=== PATIENT | female | born 1955 | race Caucasian/White ===

== ENCOUNTER 2023-06-05 08:20 | Day surgery (SDC) | payer OTHER, SELFPAY ==
[2023-06-05 08:48] VITALS: BP 155/71; PULSE 58; RESP 18; TEMP 36.1; O2SAT 98; BMI 37.8
[2023-06-05] MEDS: Lactated Ringers 1,000 ML 15 ML IV (09:01)
--- NOTE | 2023-06-05 09:12 | PCM.HP.BLA ---
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: No Is patient in pain?: No Allergies imipramine Allergy (Mild, Verified 04/24/23 12:48) Rash Medications atorvastatin 80 mg tablet mg PO 04/24/23 [History Confirmed 04/24/23] bupropion HCl (smoking deter) 150 mg tablet,12 hr sustained-release(smoking deterrent) 150 mg PO BID 04/24/23 [History Confirmed 04/24/23] etodolac 300 mg capsule mg PO 04/24/23 [History Confirmed 04/24/23] lamotrigine 200 mg tablet 200 mg PO DAILY 04/24/23 [History Confirmed 04/24/23] levothyroxine 25 mcg tablet (Synthroid) mcg PO 04/24/23 [History Confirmed 04/24/23] Is last menstrual period known: No Post menopausal: Yes Patient : No PFSH Medical History (Updated 04/24/23 @ 15:[address] Khoi Nguyễn MD) Bipolar 1 disorder Carpal tunnel syndrome Degenerative disc disease Depression GERD (gastroesophageal reflux disease) History of endometrial cancer History of hyperlipidemia History of sleep apnea Hypothyroidism Osteoarthritis Psoriasis Surgical History (Updated 04/24/23 @ 12:46 by Liudmila Figueroa) History of cataract extraction History of elbow surgery History of hysterectomy Family History (Updated 04/24/23 @ 12:47 by Liudmila Figueroa) Father Heart diseaseMother Heart disease Hypertension Hyperlipidemia Social History (Updated 04/24/23 @ 12:47 by Liudmila Figueroa) Smoking Status: Former smoker alcohol intake: current substance use type: does not use HPI HPI HPI: Patient is a 67-year-old female here for colonoscopy. She has never had a screening colonoscopy in the past. She denies any abdominal pain or blood in the stool. She has no family history of colon cancer. ROS General General: No weight change, appetite, fatigue, colon cancer, breast cancer or weakness HEENT HEENT: Yes eye surgery; No difficulty swallowing, eye injury, swollen glands or hoarseness Endo Endocrine: Yes thyroid disease; No diabetes mellitus, thyroid cancer, Hair loss, heat intolerance or cold intolerance Musc Musculoskeletal: Yes back problems and arthritis; No rheumatoid arthritis, gout or joint pain Cardio Cardiovascular: No murmur, pacemaker, heart disease, atrial fibrillation, high blood pressure, heart attack, heart stent, palpitations, shortness of breat with exertion or chest pain Psych Psychiatric: Yes depression and anxiety; No hearing voices Resp Respiratory: No shortness of breath, Yes sleep apnea, No cough, No COPD, No asthma, No emphysema and No wheezing Gastro Gastrointestinal: No abdominal pain, No nausea or vomiting, No diarrhea, No constipation, No blood in stool, Yes acid reflux, No hemorrhoids, No ulcers, No gallbladder problem and No black,tarry stools Tao Hematologic: No blood thinners, No blood disorders, No bleeding, No anemia and No blood clots Neuro Neurologic: No weakness Exam Const General: cooperative Orientation: alert and oriented x3 HENMT Head: normal to inspection Neck Neck: normal visual inspection and full ROM Chest Chest palpation & inspection: normal inspection of the chest Resp Effort & Inspection: normal respiratory effort Auscultation: clear to auscultation bilaterally Cardio Rate: regular rate Rhythm: regular rhythm GI Inspection: non-distended Palpation: soft and nontender Skin General: no rashes or lesions noted Neuro General: patient alert and patient oriented x3 Extrem General: full ROM Psych Appearance: grossly normal Mental Status: mental status grossly normal Assessment and Plan Assessment and Plan (1) Screen for colon cancer: Status: Acute Plan: Patient has never had a screening colonoscopy and she was recommended to have one. [facility] I explained endoscopy in detail to the patient. I explained the risks including but not limited to stroke or heart attack with anesthesia, perforation of the GI tract, bleeding, infection. I explained that any of these could necessitate further emergency surgery. The patient understands and all questions were answered sufficiently. The patient wishes to proceed with procedure. Khoi Nguyễn MD Pager: [facility] [address] [place] [address], [address] [place] [address] Office: I have examined the patient and the H&P has been reviewed. There are no clinical changes since date of exam.
[2023-06-05 09:40] VITALS: BP 158/71; BP 89/48; PULSE 63; RESP 16; TEMP 36.6; O2SAT 97
--- NOTE | 2023-06-05 09:41 | OP.COLON_ITS ---
Patient Name: Keya Prater Procedure Date: 06/05/2023 9:18 AM Date of : 1955 Age: 67 Procedure: Colonoscopy Indications: Screening for colorectal malignant neoplasm Providers: Khoi Nguyễn MD Medicines: Monitored Anesthesia Care Patient Profile: This is a 67 year old female. Refer to note in patient chart for documentation of history and physical. Last Colonoscopy: none. The patient's first colonoscopy is today. Complications: No immediate complications. Procedure: Pre-Anesthesia Assessment: - Prior to the procedure, a History and Physical was performed, and patient medications and allergies were reviewed. The patient's tolerance of previous anesthesia was also reviewed. The risks and benefits of the procedure and the sedation options and risks were discussed with the patient. All questions were answered, and informed consent was obtained. Prior Anticoagulants: The patient has taken no anticoagulant or antiplatelet agents. After reviewing the risks and benefits, the patient was deemed in satisfactory condition to undergo the procedure. After I obtained informed consent, the scope was passed under direct vision. Throughout the procedure, the patient's blood pressure, pulse, and oxygen saturations were monitored continuously. The colonoscope was introduced through the anus and advanced to the cecum, identified by appendiceal orifice and ileocecal valve. The colonoscopy was performed without difficulty. The patient tolerated the procedure well. The quality of the bowel preparation was good. The ileocecal valve, appendiceal orifice, and rectum were photographed. Scope In: 9:24:20 AM Scope Withdrawal Time 0 hours 6 minutes 5 seconds Scope Out: 9:35:21 AM Total Procedure Duration Time 0 hours 11 minutes 1 second Findings: The entire examined colon appeared normal on direct and retroflexion views. Impression: - The entire examined colon is normal on direct and retroflexion views. - No specimens collected. Recommendation: - Discharge patient to home. - Resume previous diet. - Continue present medications. - Repeat colonoscopy is not recommended due to current age (66 years or older) for screening purposes. Procedure Code(s): --- Professional --- 99784, Colonoscopy, flexible; diagnostic, including collection of specimen(s) by brushing or washing, when performed (separate procedure) Diagnosis Code(s): --- Professional --- Z12.11, Encounter for screening for malignant neoplasm of colon CPT copyright 2021 [employer]. All rights reserved. The codes documented in this report are preliminary and upon disease management nurse review may be revised to meet current compliance requirements. Khoi Nguyễn MD 06/05/2023 9:41:31 AM This report has been signed electronically. Number of Addenda: 0 Note Initiated On: 06/05/2023 9:18 AM
[2023-06-05 09:45] VITALS: BP 158/71; BP 97/67; PULSE 70; RESP 16; O2SAT 95
[2023-06-05 09:51] VITALS: BP 108/61; BP 158/71; PULSE 58; RESP 16; TEMP 36.3; O2SAT 97
[2023-06-05 09:59] VITALS: BP 158/71
== END 2023-06-05 10:25 | disposition home or self-care (01) ==
LOC: EN 08:26 → AC 08:26
PROVIDERS: Visit Provider Surgery
PROC: 0DJD8ZZ Inspection of Lower Intestinal Tract, Via Natural or Artificial Opening Endoscopic (ICD-10-PCS; CPT 45378; principal; 2023-06-05 09:25)
DX: Z12.11 Encounter for screening for malignant neoplasm of colon (principal); F31.9 Bipolar disorder, unspecified; E78.00 Pure hypercholesterolemia, unspecified; Z87.891 Personal history of nicotine dependence; Z79.899 Other long term (current) drug therapy; E03.9 Hypothyroidism, unspecified; Z79.890 Hormone replacement therapy; K21.9 Gastro-esophageal reflux disease without esophagitis
CPT/HCPCS: G0121; J7120; J2405

== ENCOUNTER 2025-04-20 21:52 | Emergency (ER) | payer BC, SELFPAY ==
[2025-04-20 21:52] VITALS: BP 162/116; PULSE 148; RESP 16; TEMP 36.5; O2SAT 99; BMI 36.4
[2025-04-20 21:54] VITALS: BP 141/101; PULSE 127; RESP 19; TEMP 36.4; O2SAT 98
[2025-04-20] MEDS: 0.9% Normal Saline (500mL Bag) 500 ML 999 ML IV (22:24)
[2025-04-20 22:25] LABS: Hematocrit 35.2 % (37-47); Hemoglobin 11.1 g/dL (12.0-15.0); Immature Granulocytes Count 0.060 X10^3/uL (0.0-0.0); Mean Corp Hgb Conc 31.5 g/dL (32-36); Mean Corpuscular Volume 95.9 fL (81-99); Mean Platelet Vol. 10.1 fl (6.2-12.0); NRBC Flagged by Analyzer 0 % (0-5); Platelet Count 285 K/mm3 (150-450); RBC Distribution Width CV 13.8 % (11.6-14.6); RBC Distribution Width SD 49.2 fl (35.1-43.9); Red Blood Count 3.67 M/mm3 (4.2-5.4); White Blood Count 9.1 K/mm3 (4.4-11.0)
--- OUTSIDE RECORDS SUMMARY | 2025-04-20 22:26 | XMS RPT_ITS | CCD ---
Author Organization [facility] Care Team Providers Care Research Food Technologist Name Role Phone Sonja Winchester Attending Unavailable Dr. Khoi Nguyễn Attending Provider [phone] Dr. 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, [facility] Pr ovider Lizzette Mcneill MD Unavailable LIZZETTE MCNEILL Referring Unavailable [facility] SOHAIL Tejeda Attending Unavailable LIZZETTE MCNEILL Referring Unavailable [facility] LIZZETTE MCNEILL Attending [facility] LIZZETTE MCNEILL Attending Unavailable LIZZETTE MCNEILL Referring Unavailable [facility] mohinder STEPHEN [facility] LIZZETTE Schaffer Admitting Unavailable LIZZETTE MCNEILL Attending Unavailable LIZZETTE MCNEILL Referring Unavailable [facility] mohinder [facility] ETHAN GAXIOLA Referring Unavailable Allergies Allergy Classification Reported Allergen(s) Allergy Type Date of Onset Reaction(s) Facility (2 sources) Imipramine; Translations: [IMIPRAMINE] Drug Allergy 09-25-1994 [facility] Medications Current Medications Medication Drug Class(es) Dates Sig (Normalized) Sig (Original) atorvastatin 80 mg oral tablet (8 sources) HMG-CoA Reductase Inhibitor Start: 10-10-2024 atorvastatin (Lipitor) 80 mg tablet Take 1 tablet (80 mg) by mouth. 10/10/2024 Active Start: 04-24-2023 take 80 mg by mouth at bedtime Atorvastatin Active 80 MG PO AT BEDTIME April 24, 2023 12:00am 12 hr buPROPion hydrochloride 150 mg extended release oral tablet (8 sources) Aminoketone Start: 08-08-2024 take 1 tablet by mouth twice daily buPROPion SR (WELLBUTRIN SR) 150 mg 12 hr tablet Take 150 mg by mouth two times a day. 08/08/2024 Active Start: 04-24-2023 take 150 mg by mouth twice geoffrey ly Bupropion Hcl (Smoking Deter) Active 150 MG PO TWICE A DAY April 24, 2023 12:00am take 1 tablet by daniel th twice daily buPROPion XL (Wellbutrin XL) 150 mg 24 hr tablet Take by mouth twice a day. Active ergocalciferol 1.25 mg oral capsule (2 sources) Provitamin D2 Compound take 1 capsule by mouth every week ergocalciferol 50,000 unit capsule (VITAMIN D2, DRISDOL) Take 50,000 Units by mouth one time a week. Active etodolac 300 mg oral capsule (3 sources) Nonsteroidal Anti-inflammatory Drug Start: 10-11-19 etodolac (LODINE) 300 mg capsule Take 300 mg by mouth. 10/10/2024 Active Start: 04-24-2023 take 300 mg by mouth twice geoffrey ly Etodolac Active 300 MG PO TWICE A DAY April 24, 2023 12:00am lamoTRIgine 200 mg oral tablet (8 sources) Mood Stabilizer, Anti-epileptic Agent Start: 08-08-2024 lamoTRIgine (LAMICTAL) 200 mg tablet Take 200 mg by mouth. 08/08/2024 Active Start: 04-24-2023 take 200 mg by mouth once reed y Lamotrigine Active 200 MG PO DAILY April 24, 2023 12:00am take 1 tablet by daniel th every twenty-four hours lamoTRIgine (LaMICtal XR) 200 mg tablet extended release 24hr 24 hr tablet Take by mouth. Active levothyroxine sodium 0.025 mg oral tablet (1 source) l-Thyroxine Start: 04-24-2023 take 1 tablet by mouth once daily Levothyroxine (Synthroid) 25 mcg tablet Active 25 MCG PO DAILY April 24, 2023 12:00am Completed/Discontinued Medications Medication Drug Class(es) Dates Sig (Normalized) Sig (Original) fludeoxyglucose F-18 injection 12.5 millicurie (1 source) Start: 03-10-2025 End: 03-10-2025 12.5 millicurie, intravenous, Once in imaging, Starting on Thu03/10/25 at 1015, For 1 dose, Administer 60 minutes and up to 3 hours prior to imaging unless otherwise indicated. Problems Active Problems Problem Classification Problem Date Documented Da te Episodic/Chronic Cancer of uterus (16 sources) Malignant neoplasm of endometrium of corpus uteri ; Translations: [Malignant neoplasm of endometrium] Onset: 5 02-21-2025 Chronic Disorders of lipid metabolism (2 sources) Hyperlipidemia, unspecified; Translations: [Hyperlipidemia, unspecified] Onset: 5 Chronic Esophageal disorders (1 source) Gastroesophageal reflux disease; Translations: [Gastro-esophageal reflux disease without esophagitis] 04-24-2023 Chronic Genitourinary symptoms and ill-defined conditions (1 source) Dysuria; Translations: [Dysuria] Onset: 3 Episodic Mood disorders (2 sources) Depressive disorder; Translations: [Depression] 05-28-2023 Chronic Osteoarthritis (1 source) Osteoarthritis; Translations: [Unspecified osteoarthritis, unspecified site] 04-24-2023 Chronic Other connective tissue disease (1 source) Other specified soft tissue disorders; Translations: [Soft tissue mass] Onset: 5 Episodic Other gastrointestinal disorders (3 sources) Abdominal mass; Translations: [Right lower quadrant abdominal swelling, mass and lump] 12-26-2024 Episodic Other gastrointestinal disorders (2 sources) Right lower quadrant abdominal swelling, mass and lump; Translations: [Abdominal mass, right lower quadrant] Onset: 5 Episodic Other inflammatory condition of skin (1 source) Psoriasis; Translations: [Psoriasis, unspecified] 04-24-2023 Chronic Other nervous system disorders (1 source) Carpal tunnel syndrome; Translations: [Carpal tunnel syndrome, unspecified upper limb] 04-24-2023 Chronic Other nervous system disorders (1 source) H/O: respiratory disease; Translations: [Personal history of other diseases of the nervous system and sense organs] 04-24-2023 Episodic Other nutritional; endocrine; and metabolic disorders (1 source) H/O: raised blood lipids; Translations: [Personal history of other endocrine, nutritional and metabolic disease] 04-24-2023 Episodic Other screening for suspected conditions (not mental disorders or infectious disease) (2 sources) Patient encounter status; Translations: [Encounter for screening for malignant neoplasm of colon] 04-24-2023 Episodic Spondylosis; intervertebral disc disorders; other back problems (1 source) Degeneration of intervertebral disc; Translations: [Degeneration of intervertebral disc] 04-24-2023 Chronic Thyroid disorders (1 source) Hypothyroidism; Translations: [Hypothyroidism, unspecified] 05-28-2023 Chronic Past or Other Problems Problem Classification Problem Date Documented Da te Episodic/Chronic Unclassified (5 sources) Onset: 02-21-2025 02-21-2025 Results Test Name Value Interpretation Reference Range Facility Basic metabolic 2000 panelon 04-19-2025 Anion gap [Moles/Vol] 14 mmol/L Normal 10-[address] [facility] Comment on above: Order Comment: Post Op Day of Surgery at 2200 Performed By: #### 2 4321-2 #### BRIAN More ([id number]) [facility] ([facility]) [id number] [place] [address] 84253 Calcium [Mass/Vol] 8.8 mg/dL Normal 8.6-10.6 [facility] Comment on above: Order Comment: Post Op Day of Surgery at 2200 Performed By: #### 2 4321-2 #### BRIAN More ([id number]) [facility] ([facility]) [id number] [place] [address] 79354 Chloride [Moles/Vol] 107 mmol/L Normal 98-107 [facility] Comment on above: Order Comment: Post Op Day of Surgery at 2200 Performed By: #### 2 4321-2 #### BRIAN More ([id number]) [facility] ([facility]) [address] [place] [address] CO2 [Moles/Vol] 23 mmol/L Normal 21-32 [facility] Comment on above: Order Comment: Post Op Day of Surgery at 2200 Performed By: #### 2 4321-2 #### BRIAN More ([id number]) [facility] ([facility]) [address] [place] [address] 61805 Creatinine [Mass/Vol] 0.63 mg/dL Normal 0.50-1.[address] [facility] Comment on above: Order Comment: Post Op Day of Surgery at 2200 Performed By: #### 2 4321-2 #### BRIAN More ([id number]) [facility] ([facility]) [address] [place] [address] 53621 Glomerular filtration rate >90 Normal >60 [facility] Comment on above: Order Comment: Post Op Day of Surgery at 2200 Result Comment: Calc ulations of estimated GFR are performed using the 2020 CKD-EPI Study Refit equation without the race variable for the IDMS-Traceable creatinine methods. https://jasn.asnjournals.org/content//ASN.87004 37392 Performed By: #### 2 4321-2 #### BRIAN More ([id number]) [facility] ([facility]) [address] [place] [address] 02825 Glucose [Mass/Vol] 108 mg/dL High 74-99 [facility] Comment on above: Order Comment: Post Op Day of Surgery at 2200 Performed By: #### 2 4321-2 #### BRIAN More ([id number]) [facility] ([facility]) [address] [place] [address] 70950 Potassium [Moles/Vol] 4.2 mmol/L Normal 3.5-5.[address] [facility] Comment on above: Order Comment: Post Op Day of Surgery at 2200 Performed By: #### 2 4321-2 #### BRIAN More ([id number]) [facility] ([facility]) [address] [place] [address] 76257 Sodium [Moles/Vol] 140 mmol/L Normal 136-145 [facility] Comment on above: Order Comment: Post Op Day of Surgery at 2200 Performed By: #### 2 4321-2 #### BRIAN More ([id number]) [facility] ([facility]) [address] [place] [address] 54272 Urea nitrogen [Mass/Vol] 16 mg/dL Normal 6-23 [facility] Comment on above: Order Comment: Post Op Day of Surgery at 2200 Performed By: #### 2 4321-2 #### BRIAN More ([id number]) [facility] ([facility]) [address] [place] [address] 88425 CBC panel Auto (Bld)on 04-19 Erythrocyte distribution width (RBC) [Ratio] 13.4 % Normal 11.5-14.5 [facility] Comment on above: Order Comment: Post op day of surgery at 2200 Performed By: #### 5 8410-2 #### BRIAN More ([id number]) [facility] ([facility]) [address] [place] [address] 52846 Hematocrit (Bld) [Volume fraction] 32.3 % Low 36.0-46.0 [facility] Comment on above: Order Comment: Post op day of surgery at 2200 Performed By: #### 5 8410-2 #### BRIAN More ([id number]) [facility] ([facility]) [address] [place] [address] 84640 Hemoglobin (Bld) [Mass/Vol] 9.6 g/dL Low 12.0-16.0 [facility] Comment on above: Order Comment: Post op day of surgery at 2200 Performed By: #### 5 8410-2 #### BRIAN More ([id number]) [facility] ([facility]) [address] [place] [address] 09078 MCH (RBC) [Entitic mass] 30.2 pg Normal 26.0-34.0 [facility] Comment on above: Order Comment: Post op day of surgery at 2200 Performed By: #### 5 8410-2 #### BRIAN More ([id number]) [facility] ([facility]) [address] [place] [address] 87167 MCHC (RBC) [Mass/Vol] 29.7 g/dL Low 32.0-36.[address] [facility] Comment on above: Order Comment: Post op day of surgery at 2200 Performed By: #### 5 8410-2 #### BRIAN More ([id number]) [facility] ([facility]) [address] [place] [address] 10216 MCV (RBC) [Entitic vol] 102 fL High 80-100 [facility] Comment on above: Order Comment: Post op day of surgery at 2200 Performed By: #### 5 8410-2 #### BRIAN More ([id number]) [facility] ([facility]) [address] [place] [address] 66535 Nucleated RBC/100 WBC (Bld) [Ratio] 0.0 /100 WBCs Normal 0.0-0.0 [facility] Comment on above: Order Comment: Post op day of surgery at 2200 Performed By: #### 5 8410-2 #### BRIAN More ([id number]) [facility] ([facility]) [address] [place] [address] 19634 Platelets (Bld) [#/Vol] 241 x10*3/uL Normal 150-450 [facility] Comment on above: Order Comment: Post op day of surgery at 2200 Performed By: #### 5 8410-2 #### BRIAN More ([id number]) [facility] ([facility]) [address] [place] [address] 09144 RBC (Bld) [#/Vol] 3.18 x10*6/uL Low 4.00-5.20 [facility] Comment on above: Order Comment: Post op day of surgery at 2200 Performed By: #### 5 8410-2 #### BRIAN More ([id number]) [facility] ([facility]) [address] [place] [address] 44000 WBC (Bld) [#/Vol] 11.5 x10*3/uL High 4.4-11.3 [facility] Comment on above: Order Comment: Post op day of surgery at 2200 Performed By: #### 5 8410-2 #### BRIAN More ([id number]) [facility] ([facility]) [address] [place] [address] 16664 Magnesiumon 04-19-2025 Magnesium [Mass/Vol] 2.20 mg/dL Normal 1.60-2.40 [facility] Comment on above: Performed By: #### 1 9123-9 #### BRIAN More ([id number]) [facility] ([facility]) [address] [place] [address] 45632 Basic metabolic 2000 panelon 04-14-2025 Anion gap [Moles/Vol] 15 mmol/L Normal 10-[address] [facility] Comment on above: Performed By: #### 2 4321-2 #### BRIAN More ([id number]) [facility] ([facility]) [address] [place] [address] 07912 Calcium [Mass/Vol] 9.4 mg/dL Normal 8.6-10.6 [facility] Comment on above: Performed By: #### 2 4321-2 #### BRIAN More ([id number]) [facility] ([facility]) [address] [place] [address] 28215 Chloride [Moles/Vol] 105 mmol/L Normal 98-107 [facility] Comment on above: Performed By: #### 2 4321-2 #### BRIAN More ([id number]) [facility] ([facility]) [address] [place] [address] 17615 CO2 [Moles/Vol] 24 mmol/L Normal 21-32 [facility] Comment on above: Performed By: #### 2 4321-2 #### BRIAN More ([id number]) [facility] ([facility]) [address] [place] [address] Creatinine [Mass/Vol] 0.52 mg/dL Normal 0.50-1.[address] [facility] Comment on above: Performed By: #### 2 4321-2 #### BRIAN More ([id number]) [facility] ([facility]) [address] [place] [address] Glomerular filtration rate >90 Normal >60 [facility] Comment on above: Result Comment: Calc ulations of estimated GFR are performed using the 2020 CKD-EPI Study Refit equation without the race variable for the IDMS-Traceable creatinine methods. https://jasn.asnjournals.org/content/early//ASN.04510 18583 Performed By: #### 2 4321-2 #### BRIAN More ([id number]) [facility] ([facility]) [address] [place] [address] 36628 Glucose [Mass/Vol] 84 mg/dL Normal 74-99 [facility] Comment on above: Performed By: #### 2 4321-2 #### BRIAN More ([id number]) [facility] ([facility]) [address] [place] [address] 75943 Potassium [Moles/Vol] 4.3 mmol/L Normal 3.5-5.[address] [facility] Comment on above: Performed By: #### 2 4321-2 #### BRIAN More ([id number]) [facility] ([facility]) [address] [place] [address] Sodium [Moles/Vol] 140 mmol/L Normal 136-145 [facility] Comment on above: Performed By: #### 2 4321-2 #### BRIAN More (06135) [facility] ([facility]) [address] [place] [address] Urea nitrogen [Mass/Vol] 14 mg/dL Normal 6-23 [facility] Comment on above: Performed By: #### 2 4321-2 #### BRIAN More ([id number]) [facility] ([facility]) [address] [place] [address] 95233 Blood type and Indirect anti body screen panel (Bld)on 04-14-2025 ABO group Nom (Bld) A Normal [facility] Comment on above: Performed By: #### 3 4532-2 #### BRIAN More ([id number]) [facility] ([facility]) [address] [place] [address] 62205 Blood group antibody screen Ql Negative [facility] Comment on above: Performed By: #### 3 4532-2 #### BRIAN More ([id number]) [facility] ([facility]) [address] [place] [address] 03159 D Ag Ql (Bld) Positive [facility] Comment on above: Performed By: #### 3 4532-2 #### BRIAN More ([id number]) [facility] ([facility]) [address] [place] [address] 80085 CBC W Auto Differential pane l (Bld)on 04-14-2025 Basophils (Bld) [#/Vol] 0.03 x10*3/uL Normal 0.00-0.10 [facility] Comment on above: Performed By: #### 5 7021-8 #### BRIAN More ([id number]) [facility] ([facility]) [address] [place] [address] 38938 Basophils/100 WBC (Bld) 0.3 % Normal 0.0-2.0 [facility] Comment on above: Performed By: #### 5 7021-8 #### BRIAN More ([id number]) [facility] ([facility]) [address] [place] [address] 42990 Eosinophils (Bld) [#/Vol] 0.17 x10*3/uL Normal 0.00-0.70 [facility] Comment on above: Performed By: #### 5 7021-8 #### BRIAN Mroe ([id number]) [facility] ([facility]) [address] [place] [address] 27226 Eosinophils/100 WBC (Bld) 1.9 % Normal 0.0-6.0 [facility] Comment on above: Performed By: #### 5 7021-8 #### BRIAN More ([id number]) [facility] ([facility]) [address] [place] [address] 92029 Erythrocyte distribution width (RBC) [Ratio] 13.9 % Normal 11.5-14.5 [facility] Comment on above: Performed By: #### 5 7021-8 #### BRIAN More ([id number]) [facility] ([facility]) [address] [place] [address] 12595 Hematocrit (Bld) [Volume fraction] 37.3 % Normal 36.0-46.0 [facility] Comment on above: Performed By: #### 5 7021-8 #### BRIAN More ([id number]) [facility] ([facility]) [address] [place] [address] 09577 Hemoglobin (Bld) [Mass/Vol] 11.5 g/dL Low 12.0-16.0 [facility] Comment on above: Performed By: #### 5 7021-8 #### BRIAN More ([id number]) [facility] ([facility]) [address] [place] [address] 32128 Immature granulocytes (Bld) [#/Vol] 0.04 x10*3/uL Normal 0.00-0.70 [facility] Comment on above: Performed By: #### 5 7021-8 #### BRIAN More (07406) [facility] ([facility]) [address] [place] [address] 32738 Immature granulocytes/100 WBC (Bld) 0.5 % Normal 0.0-0.9 [facility] Comment on above: Result Comment: Kitty ture Granulocyte Count (IG) includes promyelocytes, myelocytes and metamyelocytes but does not include bands. Percent differential counts (%) should be interpreted in the context of the absolute cell counts (cells/UL). Performed By: #### 5 7021-8 #### BRIAN More (75643) [facility] ([facility]) [address] [place] [address] 12264 Lymphocytes (Bld) [#/Vol] 1.32 x10*3/uL Normal 1.20-4.80 [facility] Comment on above: Performed By: #### 5 7021-8 #### BRIAN More ([id number]) [facility] ([facility]) [address] [place] [address] 28446 Lymphocytes/100 WBC (Bld) 15.0 % Normal 13.0-44.0 [facility] Comment on above: Performed By: #### 5 7021-8 #### BRIAN More ([id number]) [facility] ([facility]) [address] [place] [address] 16635 MCH (RBC) [Entitic mass] 30.2 pg Normal 26.0-34.0 [facility] Comment on above: Performed By: #### 5 7021-8 #### BRIAN More (50251) [facility] ([facility]) [address] [place] [address] 87175 MCHC (RBC) [Mass/Vol] 30.8 g/dL Low 32.0-36.[address] [facility] Comment on above: Performed By: #### 5 7021-8 #### BRIAN More (54029) [facility] ([facility]) [address] [place] [address] 17194 MCV (RBC) [Entitic vol] 98 fL Normal 80-100 [facility] Comment on above: Performed By: #### 5 7021-8 #### BRIAN More ([id number]) [facility] ([facility]) [address] [place] [address] 55771 Monocytes (Bld) [#/Vol] 0.90 x10*3/uL Normal 0.10-1.00 [facility] Comment on above: Performed By: #### 5 7021-8 #### BRIAN More ([id number]) [facility] ([facility]) [address] [place] [address] Monocytes/100 WBC (Bld) 10.3 % Normal 2.0-10.0 [facility] Comment on above: Performed By: #### 5 7021-8 #### BRIAN More ([id number]) [facility] ([facility]) [address] [place] [address] 66585 Neutrophils (Bld) [#/Vol] 6.32 x10*3/uL Normal 1.20-7.70 [facility] Comment on above: Result Comment: Perc ent differential counts (%) should be interpreted in the context of the absolute cell counts (cells/uL). Performed By: #### 5 7021-8 #### BRIAN More ([id number]) [facility] ([facility]) [address] [place] [address] 32024 Neutrophils/100 WBC (Bld) 72.0 % Normal 40.0-80.0 [facility] Comment on above: Performed By: #### 5 7021-8 #### BRIAN More ([id number]) [facility] ([facility]) [address] [place] [address] 71725 Nucleated RBC/100 WBC (Bld) [Ratio] 0.0 /100 WBCs Normal 0.0-0.0 [facility] Comment on above: Performed By: #### 5 7021-8 #### BRIAN More ([id number]) [facility] ([facility]) [address] [place] [address] 53911 Platelets (Bld) [#/Vol] 292 x10*3/uL Normal 150-450 [facility] Comment on above: Performed By: #### 5 7021-8 #### BRIAN More ([id number]) [facility] ([facility]) [address] [place] [address] 19844 RBC (Bld) [#/Vol] 3.81 x10*6/uL Low 4.00-5.20 [facility] Comment on above: Performed By: #### 5 7021-8 #### BRIAN More (49901) [facility] [facility]) [address] [place] [address] WBC (Bld) [#/Vol] 8.8 x10*3/uL Normal 4.4-11.3 [facility] Comment on above: Performed By: #### 5 [id number] #### BRIAN More ([id number]) [facility] ([facility]) [address] [place] [address] ECG 12-LEADon 04-14-2025 ECG 12-LEAD Ventricular Rate 66 Atrial Rate 66 P-R Interval 186 QRS Duration 88 Q-T Interval 400 QTC Calculation(Bazett) 419 P [place] 59 R [place] 77 T [place] 57 QRS Count 11 Q Onset 220 P Onset 127 P Offset 190 T Offset 420 QTC Fredericia 413 Diagnosis Normal sinus rhythm Low voltage QRS Borderline ECG When compared with ECG of 27-NOV-2021 10:05, No significant change was found Confirmed by Angel Riggins ([id number]) on 04/15/2025 9:16:25 PM Normal [facility] Staphylococcus aureus.methic illin resistant isolateon 04-14-2025 MRSA isol Org specific cx Ql (Nose) Test: Staphylococcus aureus/MRSA colonization, Culture Specimen Source: Anterior Nares Specimen Type: Swab Specimen Date: 04/14/20251106 Result Date: 04/15/2025 1521 Result Status: Final result Abnormal: No Resulting Lab: [facility] [address] [place] [address] CULTURE No Staphylococcus aureus isolated Normal [facility] Comment on above: Performed By: #### 5 [id number] #### BRIAN More ([id number]) [facility] ([facility]) [address] [place] [address] TSH WITH REFLEX TO FREE T4 I F ABNORMALon 04-14-2025 TSH Qn 1.65 m[IU]/L Normal 0.44-3.98 [facility] Comment on above: Order Comment: TSH t esting is performed using different testing methodology at [facility] than at other [facility]. Direct result comparisons should only be made within the same method. Performed By: #### T MADISON #### BRIAN More ([id number]) [facility] ([facility]) [address] [place] [address] FDG ONCOLOGYon NM PET CT FDG ONCOLOGY Interpreted By: James More i, and Sharma Rohin STUDY: NM PET CT FDG ONCOLOGY; 03/10/2025 11:44 am INDICATION: Signs/Symptoms:recurren t endometrial cancer. Per EMR, 69-year-old female with history of endometrial cancer status post total abdominal hysterectomy with bilateral salpingo-oophorectomy, and sentinel pelvic lymph node excision. Now presenting with an abdominal wall mass lesion, biopsy-proven as endometrial carcinoma metastases. COMPARISON: None. ACCESSION NUMBER(S): [id number] ORDERING CLINICIAN: LIZZETTE MCNEILL TECHNIQUE: DIVISION OF NUCLEAR MEDICINE POSITRON EMISSION TOMOGRAPHY (PET-CT) The patient received an intravenous dose of 12.5 mCi of Fluorine-18 fluorodeoxyglucose (FDG). The patient was placed in a dark quiet room. Positron emission tomographic (PET) images from midthigh to skull base were then acquired after a one hour delay. Also acquired was a contemporaneous low dose non-contrast CT scan performed for attenuation correction of PET images and anatomic localization. The PET and CT images were digitally fused for display. All images were acquired on a combined PET-CT scanner unit. Some areas of FDG accumulation may be described in standardized uptake value (SUV) units. CODING: Subsequent Treatment Strategy (PS) CALIBRATION: Dose Wrzgfovck-eq-Iaxz Interval (mins): 63 min Mediastinal bloodpool SUV (normal 1.5-2.5): 2.8 Blood glucose: 122 mg/dL FINDINGS: HEAD AND NECK: No evidence of focal hypermetabolic lesion in the brain parenchyma, noting that evaluation is limited because of the expected physiologic diffuse FDG uptake in the brain. No FDG avid cervical lymphadenopathy is present. Thyroid gland unremarkable. CHEST: No concerning pulmonary node No FDG avid mediastinal, hilar or axillary lymphadenopathy. Bilateral breast tissue unremarkable. ABDOMEN AND PELVIS: There is a large FDG avid (SUV 14.3) soft tissue lesion in the intramuscular plane along the right anterolateral abdominal wall in the right lower quadrant. it shows a central photopenic area, likely sales representative education courses of necrosis. Status post FELICIA/BSO with no abnormal focal FDG uptake within the surgical bed that might suggest recurrence. No FDG avid abdominal or pelvic lymphadenopathy. Bilateral adrenal glands are unremarkable. Physiologic radiotracer uptake is present in the liver and spleen with excretion into the bowel loops and the genitourinary tract. Incidental note made of cholelithiasis. MUSCULOSKELETAL/EXTREMI TIES: No concerning FDG avid bone lesion throughout axial or appendicular skeleton to suggest osseous metastasis. FDG avidity about right hip joint, and bilateral shoulder joints. Likely secondary to degenerative joint disease. IMPRESSION: 1. Large FDG avid mass with central necrosis in the intramuscular plane along the right anterolateral abdominal wall, consistent with metastatic endometrial cancer. 2. Status post FELICIA-BSO, no PET evidence of local recurrence in the postsurgical bed. I personally reviewed the images/study and I agree with the findings as stated by Melvin Morrow MD. This study was interpreted at [place], [place]. Signed by: James Bonilla 03/10/2025 2:19 PM Dictation workstation: [id number] [facility] PT Guidance for radiation tr eatment of Unspecified body regionon 03-10-2025 1. Large FDG avid ma ss with central necrosis in the intramuscular plane along the right anterolateral abdominal wall, consistent with metastatic endometrial cancer. 2. Status post FELICIA-BSO, no PET evidence of local recurrence in the postsurgical bed. I personally reviewed the images/study and I agree with the findings as stated by Melvin Morrow MD. This study was interpreted at [place], [place]. Signed by: James Bonilla 03/10/2025 2:19 PM Dictation workstation: [id number] MMODAL Interpreted By: James Bonilla and Sharma Rohin STUDY: NM PET CT FDG ONCOLOGY; 03/10/2025 11:44 am INDICATION: Signs/Symptoms:recurren t endometrial cancer. Per EMR, 69-year-old female with history of endometrial cancer status post total abdominal hysterectomy with bilateral salpingo-oophorectomy, and sentinel pelvic lymph node excision. Now presenting with an abdominal wall mass lesion, biopsy-proven as endometrial carcinoma metastases. COMPARISON: None. ACCESSION NUMBER(S): [id number] ORDERING CLINICIAN: LIZZETTE MCNEILL TECHNIQUE: DIVISION OF NUCLEAR MEDICINE POSITRON EMISSION TOMOGRAPHY (PET-CT) The patient received an intravenous dose of 12.5 mCi of Fluorine-18 fluorodeoxyglucose (FDG). The patient was placed in a dark quiet room. Positron emission tomographic (PET) images from midthigh to skull base were then acquired after a one hour delay. Also acquired was a contemporaneous low dose non-contrast CT scan performed for attenuation correction of PET images and anatomic localization. The PET and CT images were digitally fused for display. All images were acquired on a combined PET-CT scanner unit. Some areas of FDG accumulation may be described in standardized uptake value (SUV) units. CODING: Subsequent Treatment Strategy (PS) CALIBRATION: Dose Apsefepat-zs-Mvan Interval (mins): 63 min Mediastinal bloodpool SUV (normal 1.5-2.5): 2.8 Blood glucose: 122 mg/dL FINDINGS: HEAD AND NECK: No evidence of focal hypermetabolic lesion in the brain parenchyma, noting that evaluation is limited because of the expected physiologic diffuse FDG uptake in the brain. No FDG avid cervical lymphadenopathy is present. Thyroid gland unremarkable. CHEST: No concerning pulmonary node No FDG avid mediastinal, hilar or axillary lymphadenopathy. Bilateral breast tissue unremarkable. ABDOMEN AND PELVIS: There is a large FDG avid (SUV 14.3) soft tissue lesion in the intramuscular plane along the right anterolateral abdominal wall in the right lower quadrant. it shows a central photopenic area, likely sales representative education courses of necrosis. Status post FELICIA/BSO with no abnormal focal FDG uptake within the surgical bed that might suggest recurrence. No FDG avid abdominal or pelvic lymphadenopathy. Bilateral adrenal glands are unremarkable. Physiologic radiotracer uptake is present in the liver and spleen with excretion into the bowel loops and the genitourinary tract. Incidental note made of cholelithiasis. MUSCULOSKELETAL/EXTREMI TIES: No concerning FDG avid bone lesion throughout axial or appendicular skeleton to suggest osseous metastasis. FDG avidity about right hip joint, and bilateral shoulder joints. Likely secondary to degenerative joint disease. MMODAL James Bonilla MD - 03/10/2025 Interpreted By: James Bonilla and Sharma Rohin STUDY: NM PET CT FDG ONCOLOGY; 03/10/2025 11:44 am INDICATION: Signs/Symptoms:recurren t endometrial cancer. Per EMR, 69-year-old female with history of endometrial cancer status post total abdominal hysterectomy with bilateral salpingo-oophorectomy, and sentinel pelvic lymph node excision. Now presenting with an abdominal wall mass lesion, biopsy-proven as endometrial carcinoma metastases. COMPARISON: None. ACCESSION NUMBER(S): [id number] ORDERING CLINICIAN: LIZZETTE MCNEILL TECHNIQUE: DIVISION OF NUCLEAR MEDICINE POSITRON EMISSION TOMOGRAPHY (PET-CT) The patient received an intravenous dose of 12.5 mCi of Fluorine-18 fluorodeoxyglucose (FDG). The patient was placed in a dark quiet room. Positron emission tomographic (PET) images from midthigh to skull base were then acquired after a one hour delay. Also acquired was a contemporaneous low dose non-contrast CT scan performed for attenuation correction of PET images and anatomic localization. The PET and CT images were digitally fused for display. All images were acquired on a combined PET-CT scanner unit. Some areas of FDG accumulation may be described in standardized uptake value (SUV) units. CODING: Subsequent Treatment Strategy (PS) CALIBRATION: Dose Ykerygqbb-go-Ugrl Interval (mins): 63 min Mediastinal bloodpool SUV (normal 1.5-2.5): 2.8 Blood glucose: 122 mg/dL FINDINGS: HEAD AND NECK: No evidence of focal hypermetabolic lesion in the brain parenchyma, noting that evaluation is limited because of the expected physiologic diffuse FDG uptake in the brain. No FDG avid cervical lymphadenopathy is present. Thyroid gland unremarkable. CHEST: No concerning pulmonary node No FDG avid mediastinal, hilar or axillary lymphadenopathy. Bilateral breast tissue unremarkable. ABDOMEN AND PELVIS: There is a large FDG avid (SUV 14.3) soft tissue lesion in the intramuscular plane along the right anterolateral abdominal wall in the right lower quadrant. it shows a central photopenic area, likely sales representative education courses of necrosis. Status post FELICIA/BSO with no abnormal focal FDG uptake within the surgical bed that might suggest recurrence. No FDG avid abdominal or pelvic lymphadenopathy. Bilateral adrenal glands are unremarkable. Physiologic radiotracer uptake is present in the liver and spleen with excretion into the bowel loops and the genitourinary tract. Incidental note made of cholelithiasis. MUSCULOSKELETAL/EXTREMI TIES: No concerning FDG avid bone lesion throughout axial or appendicular skeleton to suggest osseous metastasis. FDG avidity about right hip joint, and bilateral shoulder joints. Likely secondary to degenerative joint disease. IMPRESSION: 1. Large FDG avid mass with central necrosis in the intramuscular plane along the right anterolateral abdominal wall, consistent with metastatic endometrial cancer. 2. Status post FELICIA-BSO, no PET evidence of local recurrence in the postsurgical bed. I personally reviewed the images/study and I agree with the findings as stated by Melvin Morrow MD. This study was interpreted at [place], [place]. Signed by: James Bonilla 03/10/2025 2:19 PM Dictation workstation: [id number] [facility] Work Phone: Radiology Study observation (narrative) [facility] Work Phone: PT Guidance for radiation tr eatment of Unspecified body regionOrdered By: James Bonilla on 03-10-2025 [facility] Work Phone: BRIEF OP NOTon 01-03-2025 BRIEF OP NOT HNO ID: [id number] Author: ELDER MALLORY MD Service: Radiology Author Type: Physician Type: Brief Op Note Filed: 01/03/2025 14:21 Note Text: BRIEF OPERATIVE / PROCEDURE NOTE LOG ID: [id number] SURGERY/PROCEDURE DATE: 01/03/2025 INCISION/PROCEDURE START TIME: 12:27 PM INCISION CLOSE/PROCEDURE END TIME: 12:38 PM SURGEON(S)/PROCEDURALIS T(S) AND MILLING/POLISHING OPERATOR(S): Surgeons and Role: * Enzo Herron MD - Primary * Elder Mallory MD - Fellow No Additional Staff SURGERY/PROCEDURE(S): US guided right abdominal wall mass biopsy ANESTHESIA: Procedural Sedation FINDINGS: Technically successful US guided right abdominal wall mass biopsy ESTIMATED BLOOD LOSS: 0 ml SPECIMENS: 4 core specimens placed in formalin COMPLICATIONS: None PRE-OP/PRE-PROCEDURE DIAGNOSIS: Indeterminate soft tissue mass, history of endometrioid endometrial cancer POST-OP/POST-PROCEDURE DIAGNOSIS: Same as Preop SIGNATURE: Elder Mallory MD PATIENT NAME: Keya Harris DATE: January 03, 2025 TIME: 2:20 PM Normal [facility] HISTORY PHYSICALon 05-27-202 5 HISTORY PHYSICAL HNO ID: [id number] Author: ELDER MALLORY MD Service: Radiology Author Type: Physician Type: H&P Filed: 01/03/2025 10:12 Note Text: Attestation signed by Enzo Herron MD at 01/03/2025 1:00 PM [facility] RADIOLOGY PROCEDURAL SEDATION HISTORY AND PHYSICAL EXAM SERVICE DATE: 01/03/2025 SERVICE TIME: 10:11 AM Subjective HPI: This is a 69 year old female who presents with a history of endometrioid endometrial cancer and a right abdominal wall mass, here for biopsy. PROCEDURE SCHEDULED: Procedure(s) with comments: BIOPSY MUSCLE, PERCUTANEOUS NEEDLE (Right) - Right abdominal mass FBUS w/ CT back up RADIOLOGY ORDER PLACED: Radiology (1440h ago, onward) Start Ordered 12/28/24 0000 IMAGING GUIDED BIOPSY SOFT TISSUE MASS/MUSCLE Routine Comments: Right abdominal mass 12/28/24 1123 PAST ANESTHESIA HISTORY: No history of adverse event No past medical history on file. No past surgical history on file. Prior to Admission medications as of 01/03/25 1004 Medication Sig Last Dose Taking atorvastatin (LIPITOR) 80 mg tablet Take 80 mg by mouth. 01/02/2025 Yes buPROPion SR (WELLBUTRIN SR) 150 mg 12 hr tablet Take 150 mg by mouth two times a day. 01/03/2025 Morning Yes etodolac (LODINE) 300 mg capsule Take 300 mg by mouth. 01/03/2025 Morning Yes lamoTRIgine (LAMICTAL) 200 mg tablet Take 200 mg by mouth. 01/02/2025 Yes ergocalciferol 50,000 unit capsule (VITAMIN D2, DRISDOL) Take 50,000 Units by mouth one time a week. 01/02/2025 Yes ALLERGIES Not on File Objective PHYSICAL EXAM: The remainder of the physical exam is noncontributory. AIRWAY: Mouth opening greater than 3 fingerbreadths: Yes Neck Full Range of Motion: Yes LUNGS: Lungs clear to auscultation, Good diaphragmatic excursion CARDIAC: Normal S1 and S2; no rubs, murmurs, or gallops Assessment/Plan ASA Class: ASA Class: Patient with mild systemic disease Provisional Diagnosis/Treatment Plan: Imaging guided right abdominal wall mass biopsy Sedation Goal: Moderate SIGNATURE: Elder Mallory MD PATIENT NAME: Keya Harris DATE: January 03, 2025 TIME: 10:11 AM Normal [facility] MISMATCH REPAIR PROTEINS BY IHCon 01-03-2025 AP BIOMARKER DISCLAIMER Normal [facility] Comment on above: Order Comment: Cookie augustin Type: TISSUE SPECIMEN Ordering Facility: [facility] Address: [address] [place] [address] Result Comment: Feroz gallego Developed Test (LDT) Disclaimer: Performance characteristics of immunohistochemical, immunofluorescent, and chromogenic in-situ hybridization tests have been determined by the performing laboratory within [facility] ([facility], [facility], [facility], [facility], [facility], or [facility]) in a manner consistent with CLIA requirements. One or more of these tests may not have been cleared or approved by the FDA. [facility] is regulated under CLIA as qualified to perform high-complexity testing. These tests are used for clinical purposes. These should not be regarded as investigational or for research. Positive and negative controls stain appropriately. Performed By: #### L [id number] #### [facility] CLIA [id number] [address] [place], [place] [address] [address] [place] AP BLOCK ID A1 Normal [facility] Comment on above: Order Comment: Speci charli Type: TISSUE SPECIMEN Ordering Facility: [facility] Address: [address] [place] [address] Performed By: #### L [id number] #### [facility] CLIA [id number] [address] [place] [address] OF [place] BIOMARKER INTERPRETATION COMMENT AND REFERENCE RANGE Normal [facility] Comment on above: Order Comment: Speci men Type: TISSUE SPECIMEN Ordering Facility: [facility] Address: [address] [place] [address] Result Comment: Immu nohistochemical stains for mismatch repair proteins were performed and show loss of expression of MLH1 and PMS2 in carcinoma nuclei with retained expression of MSH2 and MSH6. Controls were appropriately positive for each immunohistochemical stain. Loss of protein expression for any of the mismatch repair genes helps to identify the causative gene for the MSI-H phenotype and makes further mutation testing more efficient if indicated following genetic counseling. Immunohistochemical results are not definitive evidence of germline versus a tumor-acquired alteration with many tumors previously considered to be highly suggestive of Wagner syndrome based on molecular and/or immunohistochemical analyses, arise due to tumor-acquired mutations rather than germline mutations. In a phase 2 study of patients with metastatic carcinoma, Chinyere et al ([facility] 2015;372:0659-78) reported that clinical benefit of pembrolizumab, an anti-programmed 1 (PD-1) immune checkpoint inhibitor, was predicted by the tumor's mismatch repair status; mismatch repair deficient (dMMR) tumors are more responsive to PD-1 blockade than mismatch repair proficient tumors. Pembrolizumab is FDA-approved for the treatment of adult and pediatric patients with unresectable or metastatic solid tumors that display microsatellite instability-high (MSI-H) by PCR assay or dMMR by immunohistochemistry (IHC). The FDA does not distinguish between PCR and IHC-based assays, as these are considered equivalent and complimentary tests. As clinically indicated, and in the appropriate setting of genetic counseling with informed patient consent, further genetic testing may be helpful. For more information or questions about this result, please call the [facility] for [facility] [employer] [facility] at [phone]. Performed By: #### L [id number] #### [facility] CLIA [id number] [address] [place] [address] OF [place] BIOMARKER METHOD Immunohistochemistry was performed on formalin-fixed paraffin-embedded tissue using the FDA-approved MMR IHC Panel with the following clones: MLH1 (clone M1 mouse monoclonal); PMS2 (A16-4 mouse monoclonal); MSH2 ([id number] mouse monoclonal); MSH6 (SP93 rabbit monoclonal). The OptiView DAB IHC Detection Kit is used with MLH1, MSH2, and MSH6, and the OptiView DAB IHC Detection Kit with OptiView Amplification Kit is used for PMS2 detection. [[employer]] Normal [facility] Comment on above: Order Comment: Speci men Type: TISSUE SPECIMEN Ordering Facility: [facility] Address: [address] [place] [address] Performed By: #### L [id number] #### [facility] CLIA [id number] [address] [place] [address] CASE NUMBER MMR [id number] Normal [facility] Comment on above: Order Comment: Speci men Type: TISSUE SPECIMEN Ordering Facility: [facility] Address: [address] [place] [address] Performed By: #### L [id number] #### [facility] CLIA [id number] [address] [place] [address] OF [facility]FORM[facility] Normal [facility] Comment on above: Order Comment: Speci men Type: TISSUE SPECIMEN Ordering Facility: [facility] Address: [address] [place] [address] Result Comment: Diag nostic interpretation performed at: [facility], [address] [place] [address] CLIA# [id number] Fish Pitcher: Jigar Asencio MD Electronically signed out by: Bindu Abrams MD Performed By: #### L [id number] #### [facility] CLIA [id number] [address] [place] [address] STATES OF [facility] Result Comment: Diag nostic interpretation performed at: [facility], [address] [place], [place] [address] CLIA# [id number] Fish Pitcher: Jigar Asencio MD Performed By: #### 6 6121-5 #### [facility] CLIA [id number] [address] [place] [address] [place] FIXATIVE Other Normal [facility] Comment on above: Order Comment: Speci men Type: TISSUE SPECIMEN Ordering Facility: [facility] Address: [address] [place] [address] Result Comment: Form david after decalcification in EDTA Performed By: #### L [id number] #### [facility] CLIA [id number] [address] [place] [address] [place] MLH1 IMMUNOHISTOCHEMICAL RESULTS Loss of Nuclear Expression Abnormal [facility] Comment on above: Order Comment: Speci men Type: TISSUE SPECIMEN Ordering Facility: [facility] Address: [address] [place] [address] Performed By: #### L [id number] #### [facility] CLIA [id number] [address] [place], [place] [address] [place] MLH1 PROMOTER METHYLATION ASSAY Yes, Reported Separately Normal [facility] Comment on above: Order Comment: Speci men Type: TISSUE SPECIMEN Ordering Facility: [facility] Address: [address] [place] [address] Performed By: #### L [id number] #### [facility] CLIA [id number] [address] [place], [place] [address] [place] MMR INTERPRETATION Deficient Mismatch Repair (dMMR) Abnormal [facility] Comment on above: Order Comment: Speci men Type: TISSUE SPECIMEN Ordering Facility: [facility] Address: [address] [place], [place] [address] Performed By: #### L [id number] #### [facility] CLIA [id number] [address] [place], [place] [address] [place] MSH2 IMMUNOHISTOCHEMICAL RESULTS Normal/Intact Nuclear Expression Normal [facility] Comment on above: Order Comment: Speci men Type: TISSUE SPECIMEN Ordering Facility: [facility] Address: [address] [place] [address] Performed By: #### L [id number] #### [facility] CLIA [id number] [address] [place] [address] [place] MSH6 IMMUNOHISTOCHEMICAL RESULTS Normal/Intact Nuclear Expression Normal [facility] Comment on above: Order Comment: Speci men Type: TISSUE SPECIMEN Ordering Facility: [facility] Address: [address] [place] [address] Performed By: #### L [id number] #### [facility] CLIA [id number] [address] [place] [address] [place] PMS2 IMMUNOHISTOCHEMICAL RESULTS Loss of Nuclear Expression Abnormal [facility] Comment on above: Order Comment: Speci men Type: TISSUE SPECIMEN Ordering Facility: [facility] Address: [address] [place] [address] Performed By: #### L [id number] #### [facility] CLIA [id number] [address] [place] [address] [place] TUMOR TYPE MMR Metastatic Uterine Endometrial Adenocarcinoma Normal [facility] Comment on above: Order Comment: Speci men Type: TISSUE SPECIMEN Ordering Facility: [facility] Address: [address] [place] [address] Performed By: #### L [id number] #### [facility] CLIA [id number] [address] [place] [address] [place] MLH1 PROMOTER HYPERMETHYLATI ONon 01-03-2025 MLH1 PROMOTER HYPERMETHYLATION Normal [facility] Comment on above: Order Comment: Speci men Type: TISSUE SPECIMEN Ordering Facility: [facility] Address: [address] [place] [address] Result Comment: MLH1 Promoter Hypermethylation Laboratory Accession Number: [id number] Case #: [id number] Block #: A1 % Tumor: 80 MLH1 Promoter Hypermethylation: Present Tissue Analyzed: Bone and soft tissue Reference Range: Methylation Absent means that MLH1 promoter region methylation is observed to be less than or equal to 9%. Methylation Present means that MLH1 promoter region methylation is observed to be greater than or equal to 10%. Interpretation: Presence of MLH1 hypermethylation suggests a sporadic, rather than hereditary, etiology of colorectal and endometrial tumors that have high microsatellite instability (MSI-H) and/or loss of MLH1 protein expression. Patients with this tumor phenotype have a low likelihood of a germline mutation in a DNA mismatch repair gene. However, a small percentage of Wagner syndrome patients may also have MLH1 promoter hypermethylation, and as such, the presence of hypermethylation of the MLH1 promoter cannot definitively rule out Wagner syndrome. Wagner syndrome is a hereditary cancer predisposition caused by germline mutations in one of the DNA mismatch repair genes. High- frequency microsatellite instability (MSI-H) occurs in most colorectal and endometrial adenocarcinomas arising from Wagner syndrome. However, most colorectal and endometrial cancers with MSI-H and loss of MLH1 protein expression can be attributed to somatic promoter hypermethylation of the MLH1 gene and subsequent suppression of MLH1 protein production rather than Wagner syndrome. Testing for methylation of the MLH1 promoter in tumor tissue helps differentiate sporadic from hereditary tumors and guide further evaluation. Methodology: Formalin-fixed, paraffin-embedded tumor tissue was microdissected to enrich for tumor cells. Genomic DNA was purified and treated with sodium bisulfite to convert unmethylated cytosine residues to uracil. PCR amplification of a targeted region of the MLH1 promoter was performed and methylation of four CpG sites in the region encompassing -209bp to -181bp from the licensed optical dispenser start site was analyzed by pyrosequencing of the amplicons (Digital Loyalty System Q48 Autoprep Instrument). References: 1) Janel , et al. Utility of MLH1 methylation analysis in the clinical evaluation of Wagner Syndrome in women with endometrial cancer. Curr Pharm Carlos. 2014;20(11):1655-63. 2) Giancarlo G, et al. Methylation of CpG in a small region of the hMLH1 promoter invariably correlates with the absence of gene expression. Cancer Res. 199 December 08;59(9):2029-33. 3) Waldemar M, et al. MLH1 promoter hypermethylation in the analytical algorithm of Wagner syndrome: a cost-effectiveness study. Eur J Hum Elizabeth. 2012 Feb;20(7):762-8. 4) Jarod HERNANDEZ, et al. Incidence and functional consequences of hMLH1 promoter hypermethylation in colorectal carcinoma. Proc Natl Acad Sci [place] A. 1998 Jan 16;95(12):7270-5. 5) Jett Cronin, et al. Tumour MLH1 promoter region methylation testing is an effective prescreen for Wagner Syndrome (HNPCC). J Med Elizabeth. 2014 Jul;51(12):789-96. 6) Mack More et al. Methylation analysis of MLH1 improves the selection of patients for genetic testing in Wagner syndrome. J Molec Diagn. 2010 Feb;12(4)498-504. Disclaimer: This test was developed and its performance characteristics determined by [facility]'s Pathology and Laboratory Medicine Department. It has not been cleared or approved by the FDA. [facility]'s Pathology and Laboratory Medicine Department is regulated under CLIA as certified to perform high-complexity testing. This test is used for clinical purposes. It should not be regarded as investigational or for research. Test performed at [facility], [address] [place] [address]. [place] Number: [id number] Interpretation performed by Radha Reeves MD, PhD Performed By: #### P OLE #### [facility] CLIA [id number] [address] [place], [place] [address] [address] [place] NURSING PROGon 01-03-2025 NURSING PROG HNO ID: [id number] Author: SARA OCHOA RN Service: ? Author Type: Registered Nurse Type: Nursing Progress Note Filed: 01/04/2025 08:18 Note Text: Completed post procedure phone call. Keya is feeling well and has returned to her baseline diet and activity. Keya denies questions or concerns related to her biopsy appointment on 01/03/25 and had no surgical site concerns. Normal [facility] NURSING PROG HNO ID: [id number] Author: YOLY BERNSTEIN, ZAHRA Service: Radiology Author Type: Registered Nurse Type: Nursing Progress Note Filed: 01/03/2025 12:10 Note Text: .AMBULATORY PATIENT EDUCATION NOTE TOPIC: procedure: image guided biopsy READINESS TO LEARN COGNITIVE ABILITY: Alert and oriented MOTIVATION TO LEARN: Interested FAMILY SUPPORT: Unable to assess - Family not present INSTRUCTION PROVIDED TO: Patient PATIENT LEARNS BEST BY: Verbal Instruction FACTORS AFFECTING LEARNING: Unable to assess PHYSICAL LIMITATIONS AFFECTING LEARNING: None LEARNING RESPONSE DIAGNOSIS: image guided biopsy METHOD OF INSTRUCTION: Verbal instruction PATIENT / FAMILY RESPONSE: Verbalizes understanding of: PAIN MANAGEMENT-Effective strategies to manage pain in addition to pain medication PRE-PROCEDURE INSTRUCTIONS-Correct action to take to follow pre-procedure instructions FOLLOW-UP PLAN: Complete - No need for follow-up SUPPLEMENTAL MATERIAL: None REFERRAL (RECOMMENDATION): None Electronically Signed By: Yoly Bernstein RN In Department: HOSP MAIN [id number] Time spent on patient education: 05 minutes. Normal [facility] POLE PYROSEQUENCINGon 2024 POLE PYROSEQUENCING RESULT Normal [facility] Comment on above: Order Comment: Speci men Type: TISSUE SPECIMEN Ordering Facility: [facility] Address: [facility] [place] [address] Result Comment: POLE Pyrosequencing Laboratory Accession Number: [id number] Case #: [id number] Part ID: N/A Sample Type: FFPET % Tumor: 90 RESULT: Not Detected INTERPRETATION: A hotspot POLE mutation was not detected in this specimen. Please see methods, evaluated pathogenic mutations and test limitations below. POLE encodes for the DNA polymerase episolon catalytic subunit, an enzyme with a crucial role in DNA replication and repair. Pathogenic missense somatic mutations in the POLE exonuclease domain (codons 268-471) lead to genomic instability and ultra-high tumor mutational burden. Pathogenic POLE mutations leading to ultra-mutated phenotype are most frequently observed in colorectal and endometrial cancer, and POLE mutations define a molecular subtype of endometrial carcinoma, POLE-mutated endometrial cancer, which confers a more favorable prognosis. Patients whose tumors contain these mutations may be candidates for treatment with anti-PD-1 antibodies, such as nivolumab, pembrolizumab and dostarlimab. The clinically significant mutations detected by this assay are associated with POLE enzyme loss of function and hypermutator phenotype. METHODS: Formalin-fixed, paraffin-embedded tissue (FFPE) is microdissected to enrich for tumor cells, with a goal of enriching to greater than 40 percent tumor purity. Genomic DNA is extracted and PCR amplification of five targeted regions from exons 9-14 in the POLE gene is then performed. Sixteen missense mutations located in the exonuclease domain (codons 286 to 459) are analyzed by pyrosequencing of the amplicons using the Qiagen Netheos48 instrument (Qiagen, Christopher, please see Evaluated POLE Hotspots below). A percent variant signal for each variant is calculated by comparison to reference peaks in the generated sequence. Pyrograms are manually reviewed to confirm a call. Variant signal less than 10 percent is reported a negative result; signals 10-30 percent are repeated for confirmation, and if confirmed, are reported as a positive result; signals greater than 30 percent are considered positive. Evaluated POLE ([id number]) Hotspots Exon 9: P286R (c.857C>G) P286L (c.857C>T) M295R (c.884T>G) S297F (c.890C>T) Exon 11: F367S (c.1100T>C) F367C (c.1100T>G) D368Y (c.1102G>T) D368N (c.1102G>A) Exon 13: V411L (c.1231G>C and c.1231G>T) L424I (c.1270C>A) P436R (c.1307C>G) M444K (c.1331T>A) Exon 14: A456P (c.1366G>C) S459F (c.1376C>T) S459Y (c.1376C>A) LIMITATIONS: This test is designed to detect only the sixteen variants described above in the POLE gene. Other variants in POLE will not be identified by this test. Uncommon variants or single nucleotide polymorphisms may affect binding of PCR and sequencing primers and may rarely result in false negative or false positive. The lower limit of detection (LOD) of this assay is approximately 20 percent variant allele fraction for all analyzed variants at 85 percent sensitivity; the assay has 95 percent sensitivity for detecting variants at or above 35 percent variant allele fraction. A minimum of 40 percent tumor purity is recommended for this assay; the assay has decreased sensitivity when tumor purity is below this and may result in false negative or indeterminate results. A negative result does not preclude the possibility of an alternative hotspot variant. Tumor heterogeneity, tumor burden, specimen degradation or other limitations of the technology may affect the sensitivity and LOD. Interfering substances, specifically formalin, decalcification agents, fixation agents containing heavy metals or preservation of buffy coats using Javier's Balanced Salt Solution (HBSS) can potentially affect assay performance. REFERENCES: 1) Henrique Serna et al. A panoply of errors: polymerase proofreading domain mutations in cancer. Maeve Rev Cancer. 2016 Feb;16(2):71-81. 2) Tonio K et al. Molecular profiling and sequential somatic mutation shift in hypermutator tumours harbouring POLE mutations. Sci Rep. 2018 Jan 7;8(1):8700. 3) Yemi Rivas, et al. Somatic POLE exonuclease domain mutations are early events in sporadic endometrial and colorectal carcinogenesis, determining oil truck driver mutational landscape, clonal neoantigen burden and immune response. J Pathol. 2018 Feb;245(3):283-296. 4) Noah Davis, et al. Immune profiling of microsatellite instability-high and polymerase epsilon (POLE)-mutated metastatic colorectal tumors identifies predictors of response to anti-PD-1 therapy. J Gastrointest Oncol. 2018 Jan;9(3):404-415. 5) Gin TOUSSAINT, et al. POLE Mutation Spectra Are Shaped by the Mutant Allele Identity, Its Abundance, and Mismatch Repair Status. Mol Cell. 202;78(6). 6) Billie Paez et al. Interpretation of somatic POLE mutations in endometrial carcinoma. J Pathol. 202;250(3):323-335. 7) Elvira BRYANT et al. POLE/POLD1 mutation in non-exonuclease domain matter (more content not included)... Performed By: #### P OLE #### [facility] CLIA [id number] [address] [place] [address] [place] Pathology biopsy report King (Tiss)on 01-03-2025 AP DISCLAIMER Normal [facility] Comment on above: Order Comment: Speci men Type: TISSUE SPECIMEN Ordering Facility: [facility] Address: [address] [place] [address] Result Comment: Feroz Valladares Test (LDT) Disclaimer: Performance characteristics of immunohistochemical, immunofluorescent, and chromogenic in-situ hybridization tests have been determined by the performing laboratory within [facility]'s [facility] Pathology and Laboratory Medicine Department ([facility], [facility], [facility], [facility], [facility], or [facility]) in a manner consistent with CLIA requirements. One or more of these tests may not have been cleared or approved by the FDA. [facility] is regulated under CLIA as qualified to perform high-complexity testing. These tests are used for clinical purposes. These should not be regarded as investigational or for research. Positive and negative controls stain appropriately. Performed By: #### 6 6121-5 #### [facility] CLIA [id number] [address] [place] [address] [place] CASE REPORT Normal [facility] Comment on above: Order Comment: Speci men Type: TISSUE SPECIMEN Ordering Facility: [facility] Address: [address] [place] [address] Result Comment: Surg ical Pathology Report Case: [id number] Authorizing Provider: Enzo Herron MD Collected: 01/03/2025 12:30 PM Ordering Location: [place] [address] Received: 01/03/2025 03:36 PM Pathologist: Bindu Abrams MD Specimen: Bone and Soft Tissue, [email or web address] Performed By: #### 6 6121-5 #### [facility] CLIA [id number] [address] [place] [address] [place] CLINICAL HISTORY Endometrioid endometrial adenocarcinoma - right abdominal wall soft tissue mass Normal [facility] Comment on above: Order Comment: Speci men Type: TISSUE SPECIMEN Ordering Facility: [facility] Address: [address] [place] [address] Performed By: #### 6 6121-5 #### [facility] CLIA [id number] [address] [place] [address] [place] DIAGNOSIS COMMENT Normal [facility] Comment on above: Order Comment: Enricoi charli Type: TISSUE SPECIMEN Ordering Facility: [facility] Address: [address] [place] [address] Result Comment: H&E sections show a glandular malignancy with many solid areas of growth. 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 IMMUNOHISTOCHEMISTRY STAINS Block: A1 ANTIBODY/PROBE: RESULT/COMMENT, in tumor cells PAX8 Positive, strong diffuse WT1 Negative P53 Patchy positive (a non-aberrant /wild-type pattern) P16 Negative ER Focal weak positive Immunohistochemistry for mismatch repair (MMR) proteins show loss of MLH1 and PMS2, with intact MSH2 and MSH6 (see linked biomarker addendum report for details). MLH1 promoter methylation testing will be ordered and reported in a separate linked report. INTERPRETATION: Supportive of carcinoma of gynecologic/m???llerian origin. BARBARA-E pyrosequencing has been ordered and will be reported in a separate linked report. Performed By: #### 6 6121-5 #### [facility] CLIA [id number] [address] [place] [address] OF [facility] FINAL DIAGNOSIS Normal [facility] Comment on above: Order Comment: Speci men Type: TISSUE SPECIMEN Ordering Facility: [facility] Address: [address] [place] [address] Result Comment: A. S oft tissue, right abdominal wall, biopsy: - Endometrioid carcinoma of gynecologic/m???llerian origin; see comment at 1621 EDT Performed By: #### 6 6121-5 #### [facility] CLIA [id number] [address] [place] [address] OF [facility] GROSS DESCRIPTION Normal [facility] Comment on above: Order Comment: Speci men Type: TISSUE SPECIMEN Ordering Facility: [facility] Address: [address] [place] [address] Result Comment: A. B one and Soft Tissue Received in formalin labeled bone and soft tissue are multiple fragments of valdovinos-white hemorrhagic soft tissue and bone aggregating to 3.0 x 0.8 x 0.2 cm. Submitted in toto in cassette A1 following decalcification in EDTA. Gross examination performed at [facility], [address] [place] [address] MSL/PEDRO 01/03/25 4:03 PM\ Performed By: #### 6 6121-5 #### [facility] CLIA [id number] [address] [place] [address] [place] US BIOPSY SOFT TISS MASS/MUS Lee 01-03-2025 US BIOPSY SOFT TISS MASS/MUSCLE * * *Final Report* * * DATE OF EXAM: Jan 03 2025 2:55PM [facility] 1068 - US BIOPSY SOFT TISS MASS/MUSCLE / PROCEDURE REASON: soft tissue mass * * * * Physician Interpretation * * * * ULTRASOUND GUIDED RIGHT ABDOMINAL WALL MASS BIOPSY INDICATION: The patient is a 69 year old female who presented with right abdominal wall soft tissue mass. CONSENT: The risks, benefits, treatment options, potential complications and personnel to be involved were discussed (including the instruments to be used and anesthesia administration) with the patient. All questions were answered and consent was obtained. The patient indicated willingness to proceed. GENERAL: a) Medication Reconciliation: The patient's medications and allergies were reviewed in the electronic medical record and reconciled to the proposed procedure/treatment. Pre-procedure Sign-in: Safety Checklist Performed Yes b) Positioning: The patient was placed left decubitus on the table. c) The area was then sterilely prepped and draped. d) Time Out: A time out was performed immediately prior to procedure start with the nursing, anesthesia and interventional team, correctly identifying the patient name, date of , procedure, anatomy (including marking of site and side), patient position, procedure consent form, relevant diagnostic and radiology test results, antibiotic administration, safety precautions, and procedure-specific equipment needs. Time Out Time: 12:25 ANESTHESIA: a) Local anesthesia: 3 mL 1% Lidocaine b) Anesthesia Type: Induction of moderate procedural sedation. c) Anesthesia Start Time: 12:26 d) Anesthesia Medications: 50 mcg Fentanyl; 1 mg Midazolam; e) Intra-service time (starts with administration of agent, ends when continuous [id number] time ends): 14 minutes. f) Patient monitoring: I personally supervised and directed an independent trained observer who assisted in monitoring the patient?s level of consciousness and physiological status throughout the procedure. PROCEDURE: a) Procedure Details: The area was marked, prepped, and draped. The right abdominal wall mass was localized with ultrasound and local anesthesia was administered. Under ultrasound guidance, a 13-gauge introducer needle was advanced to the superior aspect of the mass in order to target the more solid and vascular appearing component of the lesion. The inner stylette was removed and multiple passes were made with a 14-gauge biopsy device, targeting the superior, solid portion of the mass. All needles were removed. Images were stored. b) Devices used: Biopsy Needle: 14 Gauge Bard c) Estimated Blood Loss: 0 mL d) Number and Type of Removed Specimens: 4 core specimens, which were placed in formalin. RADIATION DOSE a) Image guidance: Sonographic guidance POST PROCEDURE: a) Hemostasis: Hemostasis was achieved using light manual compression. b) Sign-out: Communication Performed Yes c) Procedure End Time: 12:38 d) Conclusion: The patient was transferred to the biopsy recovery room in stable condition. COMPLICATIONS: a) Significant Patient Complication: None b) Complications during the procedure: None RESULTS: Core specimens were obtained from the right abdominal wall mass. IMPRESSION: SUCCESSFUL ULTRASOUND GUIDED RIGHT ABDOMINAL WALL MASS BIOPSY DESCRIBED. Attending Radiologist: Dr. Enzo Herron MD Tubing Mill Setter: Elder Mallory MD The procedure was performed by the bilingual legal assistant, and the attending radiologist personally supervised the entire procedure. Silk Worker: [facility] Transcribe Date/Time: Jan 03 2025 3:57P Dictated by : ELDER MALLORY MD This examination was interpreted and the report reviewed and electronically signed by: ENZO HERRON MD on Jan 03 2025 4:22PM EST [id number] Normal [facility] NURSING PROGon 12-27-2024 NURSING PROG HNO ID: [id number] Author: SARA DOUGHERTY LPN Service: ? Author Type: LICENSED NURSE Type: Nursing Progress Note Filed: 12/27/2024 10:29 Note Text: Pre- e instructions: Contacted patient and confirmed appt. for biopsy scheduled on 01/03/25, at [facility]. Diet: Do not eat solid food after midnight the night before your procedure. You may have water until 9:00am You may take your medications with water the day of this procedure. Medications: IF ok with your Prescribing Provider: RADIOLOGY RECOMMENDS THESE MEDICATION RESTRICTIONS : N/A Medication pumps: Insulin pumps must be removed before entering the procedure room. Do you wear Neulasta Onpro? No If yes, the devise must be removed before entering the procedure room. Arrival: Please bring your Photo ID and Insurance Card. A general consent may need to be signed. Arrival at 9:30am to desk QB-1 ([facility]) and check in for your procedure. Bilingual Secretary/Transportation: How will you be arriving for your procedure? Private car. You will need a responsible adult to accompany you to and from the procedure. Your oil truck driver is required to stay with you until you are taken into the Procedure room. Recovery expectations: You can expect to be at the hospital for the majority of the day. Please do not schedule any other appointments the day of your procedure. If you have any questions please call [phone] Normal [facility] CNOVon 12-26-2024 CNOV Office Visit (ORTHMN ) KEYA HARRIS ([id number]) 1955 F Date Time Provider Department 12/26/24 9:30 AM TED KANG ORTHMN During your visit today, we recorded the following information about you: Weight Height 88.9 kg 1.549 m Ted Kang MD 12/26/2024 8:32 PM Signed Orthopaedic Oncology New Patient Evaluation Chief Complaint: No chief complaint on file. Referring Physician: Ted Kang History of Present Illness: Ms. Harris is a 69 year old female with a history of CELINA (on CPAP), bipolar disorder, HLD, hypothyroidism who is presenting with a palpable abdominal mass. Approximately 2 months ago. She notes that she was in the shower and noticed a mass approximately the size of a kiwi on the right side of her abdomen. She denies any constitution symptoms at this time but believes it is now about the size of an orange. She says the pain is burning or aching in nature and has been more frequent and more intense in nature over the last 2 months. She notices most of the pain when she is lifting (specifically lifting things for work). She is here today with her sister Janet. [facility] and she was referred here. 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 No current facility-administered medications on file prior to visit. No family history on file. Physical Examination: There were no vitals taken for this visit. No acute distress. Breathing comfortably on RA. Warm and well-perfused peripherally. Firm mobile mass within the abdominal musculature on the right lower abdomen. Nontender to palpation of the mass. No appreciable axillary or inguinal lymphadenopathy. Intact hip flexion without worsening pain. Distally neurovascularly intact. Slight Trendelenburg gait (secondary to long history of bilateral hip osteoarthritis). Results Reviewed: MRI abdomen/pelvis: Well-circumscribed mass within the external oblique muscle peripherally enhances with contrast with nonenhancement centrally. Isointense/hypointense on T2 and hyperintense on T1. Impression/Plan: This is a 69 year old female with a history of endometrial adenocarcinoma s/p robotic FELICIA who is presenting with a palpable mass for 2 months. She is here for evaluation. We discussed that the features of this mass are concerning and require further investigation. A biopsy of the mass under image guidance is the appropriate next step. A biopsy will help us better characterize this mass and guide treatment. We had a discussion about benefits and risks of biopsy and why it could be dangerous to jump to a treatment plan without information that biopsy can provide. She demonstrated understanding and will pursue biopsy. She will likely be contacted with the results of the biopsy and if orthopaedic oncology is not the appropriate specialty to manage this mass, we will ensure she is referred to the appropriate provider. Plan: Mass biopsy under image-guidance, follow up appointment for results review scheduled Marlys Alberts MD PGY-2 Orthopaedic Surgery Return in about 4 weeks (around 01/23/2025). These recommendations are being sent back to Ted Kang via [email or web address] or Chart CC for [facility] Providers. ATTENDING PHYSICIAN NOTE I have personally interviewed and examined the patient. I agree with the findings in the above note. New and enlarging right flank mass in the setting of localized endometrial carcinoma 2021 status post lap resection. Mass is deep to one lap port. MRI and CT reviewed by me today, concerning for malignancy metastatic carcinoma v sarcoma, less likely benign. Will obtain image guided bx and follow up after results. Will discuss with surgical oncology team after bx. Ted Kang MD Associate Staff, Orthopaedic Surgery Division of Musculoskeletal Oncology Orthopaedic Medical Decision Making (MDM) Complexity of problems: Undiagnosed joint, tendon, ligament or muscle condition, Complexity of data: Independent interpretation of imaging, 2 unique test results reviewed, 1 unique (more content not included)... Normal [facility] CNPN Telephone (ORTHMN) KEYA HARRIS ([id number]) 1955 F Date Time Provider Department 12/26/24 TED KANG During your visit today, we recorded the following information about you: Brenda Campbell RN 12/26/2024 10:28 AM Signed STAFF-INITIATED RADIOLOGY BIOPSY / ASPIRATION / DRAIN REQUEST FORM Date: December 26, 2024 Time: 10:26 AM PATIENT CONTACT INFORMATION: Best way to reach patient [phone] SCHEDULING: RONAN (Specific requests must be greater than 10 business days from the date of request) RADIOLOGY SERVICE GROUP (Abdominal / Thoracic / MSK / Neuro): Bone- Biopsy Site: Soft Tissue SPECIFICS OF THE REQUEST (Please be as detailed as possible): BIOPSY of MASS - BONE (Specify) abdominal mass / Biopsy Type: Core Biopsy SPECIAL REQUESTS: TISSUE SAMPLE, LABWORK: Routine Evaluation MEDICAL DIAGNOSIS: sarcoma vs other (i.e. Known primary cancer or suspected diagnosis) IMAGING STUDY AND DATE THAT IS THE BASIS OF THE REQUEST: MRI Date: 2024 (Note: Requests for random organ biopsies, specifically liver and kidney random biopsies do not need imaging.) IMAGING: OUTSIDE [facility] Films: Where is study now: EPIC (If the imaging was obtained outside the [facility] system, PLEASE upload for review prior to approval.) Note to all persons requesting biopsies: All biopsy requests will be scheduled as quickly as possible, based on the clinical urgency, availability of appointment times, the need to hold anti-thrombolytic therapy (aspirin and other blood thinners) and the patient?s schedule, including the need for an available oil truck driver. If a percutaneous biopsy or drainage is not felt to be safe or an alternative method for establishing a diagnosis is possible, this will be discussed directly with the requesting physician. Sara Dougherty LPN 12/26/2024 2:40 PM Signed BX. COORDINATOR INFORMATION LAB RESULTS: No results found for: INR No results found for: APTT No results found for: PLT Current Outpatient Medications Medication Sig atorvastatin (LIPITOR) 80 mg tablet Take 80 mg by mouth. buPROPion SR (WELLBUTRIN SR) 150 mg 12 hr tablet Take 150 mg by mouth two times a day. etodolac (LODINE) 300 mg capsule Take 300 mg by mouth. lamoTRIgine (LAMICTAL) 200 mg tablet Take 200 mg by mouth. ergocalciferol 50,000 unit capsule (VITAMIN D2, DRISDOL) Take 50,000 Units by mouth one time a week. No current facility-administered medications for this visit. ALLERGIES Not on File FILMS SENT TO WORKSTATION: GUIDELINES FOR HOLDING ANTI-PLATELET AND ANTI- COAGULATION THERAPY: none on file NURSE SIGNATURE: Sara Dougherty LPN DATE: December 26, 2024 TIME: 2:40 PM Elder Mallory MD 12/26/2024 3:44 PM Signed RADIOLOGIST REQUEST / APPROVAL FORM STAFF RADIOLOGIST: Dr. Noriega PROCEDURE TO BE DONE UNDER: US with CT Back Up PROCEDURE REQUESTED: CORE Requested PROCEDURE: Approved TIME SLOT NEEDED: 1 Hour NOTES: Right abdominal wall mass biopsy - should be amenable to US bx to look for the solid components. Hx of endometrioid endometrial adenocarcinoma SPECIAL LABS/ PROCESSING: None Pre-procedure labs: CBC: not needed INR: not needed COVID: not needed SIR Bleeding risk category for this procedure: low risk. Reference from [facility] Organizational Development Consultant: [email or web address] [email or web address]/documents/?d [email or web address] STAFF SIGNATURE: Elder Mallory MD DATE: December 26, 2024 TIME: 3:43 PM Nam Olivia 12/27/2024 9:55 AM Signed Spoke with patient and scheduled BX 01/03/25 Allergies As of Date: 12/26/2024 (Not on File) Date Reviewed: 12/26/2024 Reviewed by: Becky Shanks MA - Fully Assessed Reason for Visit: Biopsy Request [1576] Primary Visit Diagnosis:Soft tissue mass [M79.89] Order(s):IMAGING GUIDED BIOPSY SOFT TISSUE MASS/MUSCLE [[id number]] Order #: [id number] Prescriptions as of 12/29/2024 - atorvastatin (LIPITOR) 80 mg tablet Take 80 mg by mouth. - buPROPion SR (WELLBUTRIN SR) 150 mg 12 hr tablet Take 150 mg by mouth two times a day. - etodolac (LODINE) 300 mg capsule Take 300 mg by mouth. - lamoTRIgine (LAMICTAL) 200 mg tablet Take 200 mg by mouth. - ergocalciferol 50,000 unit capsule (VITAMIN D2, DRISDOL) Take 50,000 Units by mouth one time a week. Problem List As Of Date: 12/26/2024 (None) Follow-up and Disposition History for Encounter Date Provider Department Center 12/26/2024 [id number] KANG Main - A d Encounter Status:Closed by BRENDA CAMPBELL on 12/29/24 Normal [facility] XR CHEST 2V FRONTAL/LATon XR CHEST 2V FRONTAL/LAT * * *Final Report* * * DATE OF EXAM: Dec 26 2024 8:20AM AOX 5291 - XR CHEST 2V FRONTAL/LAT / PROCEDURE REASON: Right lower quadrant abdominal mass * * * * Physician Interpretation * * * * EXAMINATION: CHEST RADIOGRAPH (2 VIEW FRONTAL and LATERAL) CLINICAL HISTORY: Right lower quadrant abdominal mass MQ: XC2_6 EXAM DATE/TIME: 12/26/2024 8:20 AM COMPARISON: No relevant prior studies available. RESULT: Lines, tubes, and devices: None. Lungs and pleura: No consolidation. No pleural effusion. No pneumothorax. Cardiomediastinal silhouette: Normal cardiomediastinal silhouette. Bones and soft tissues: Thoracic degenerative changes. IMPRESSION: No acute radiographic abnormality. Silk Worker: PSC Transcribe Date/Time: Dec 26 2024 12:13P Dictated by : SRIKANTH CRUZ MD This examination was interpreted and the report reviewed and electronically signed by: POLO DEMARCO MD on Dec 26 2024 2:11PM EST [id number] Normal [facility] XR Chest PA and Lateralon IMPRESSION: No acute radiographic abnormality. Silk Worker: [facility] Transcribe Date/Time: Dec 26 2024 12:13P Dictated by : SRIKANTH CRUZ MD This examination was interpreted and the report reviewed and electronically signed by: POLO DEMARCO MD on Dec 26 2024 2:11PM EST DIVISION OF RADIOLOGY * * *Final Report* * * DATE OF EXAM: Dec 26 2024 8:20AM AOX 5291 - XR CHEST 2V FRONTAL/LAT / PROCEDURE REASON: Right lower quadrant abdominal mass * * * * Physician Interpretation * * * * EXAMINATION: CHEST RADIOGRAPH (2 VIEW FRONTAL & LATERAL) CLINICAL HISTORY: Right lower quadrant abdominal mass MQ: XC2_6 EXAM DATE/TIME: 12/26/2024 8:20 AM COMPARISON: No relevant prior studies available. RESULT: Lines, tubes, and devices: None. Lungs and pleura: No consolidation. No pleural effusion. No pneumothorax. Cardiomediastinal silhouette: Normal cardiomediastinal silhouette. Bones and soft tissues: Thoracic degenerative changes. DIVISION OF RADIOLOGY Provider, [facility] Cris Blanco - 12/26/2024 * * *Final Report* * * DATE OF EXAM: Dec 26 2024 8:20AM AOX 5291 - XR CHEST 2V FRONTAL/LAT / PROCEDURE REASON: Right lower quadrant abdominal mass * * * * Physician Interpretation * * * * EXAMINATION: CHEST RADIOGRAPH (2 VIEW FRONTAL & LATERAL) CLINICAL HISTORY: Right lower quadrant abdominal mass MQ: XC2_6 EXAM DATE/TIME: 12/26/2024 8:20 AM COMPARISON: No relevant prior studies available. RESULT: Lines, tubes, and devices: None. Lungs and pleura: No consolidation. No pleural effusion. No pneumothorax. Cardiomediastinal silhouette: Normal cardiomediastinal silhouette. Bones and soft tissues: Thoracic degenerative changes. IMPRESSION IMPRESSION: No acute radiographic abnormality. 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 Transcribe Date/Time: Dec 26 2024 12:13P Dictated by : SRIKANTH CRUZ MD This examination was interpreted and the report reviewed and electronically signed by: POLO DEMARCO MD on Dec 26 2024 2:11PM EST [facility] Radiology Study observation (narrative) [facility] XR Chest PA and LateralOrder ed By: Ccf Provider on 12-26-2024 [facility] URINE CULTURE,BACTERIALon URINE CULTURE,BACTERIAL PATIENT: KEYA HARRIS LOCATION: [facility] BILL#: [id number] : 55 AGE: SEX: F ORDERED BY: SONJA WINCHESTER SOURCE: URINE COLLECTED: 01/27/23 14:00 ANTIBIOTICS AT [place].: RECEIVED : 01/27/23 19:13 SITE: Clean Catch/Voided R E S U L T S URINE CULTURE,BACTERIAL FINAL 01/28/23 12:07 NO SIGNIFICANT GROWTH. Normal [facility] Comment on above: Performed By: #### [facility] #### [facility] [address] [place] [address] Vital Signs Date Time Vital Sign Value Performing Clinician Facility 04-07-2025 08:46-0400 Body height 149.9 cm Sohail Luu MD Work Phone: [facility] 04-07-2025 08:46-0400 Body mass index (BMI) [Ratio] 38.98 kg/m2 Sohail Luu MD Work Phone: [facility] 04-07-2025 08:46-0400 Body weight 87.54 kg Sohail Luu MD Work Phone: [facility] 04-07-2025 08:46-0400 Diastolic blood pressure 79 mm[Hg] Sohail Luu MD Work Phone: [facility] 04-07-2025 08:46-0400 Heart rate 74 /min Sohail Luu MD Work Phone: [facility] 04-07-2025 08:46-0400 Systolic blood pressure 167 mm[Hg] Sohail Luu MD Work Phone: [facility] 03-27-2025 15:46-0400 Body mass index (BMI) [Ratio] 38.62 kg/m2 Lizzette Mcneill MD Work Phone: [facility] 03-27-2025 15:46-0400 Body temperature 98.4 [degF] Lizzette Mcneill MD Work Phone: [facility] 03-27-2025 15:46-0400 Body weight 87.7 kg Lizzette Mcneill MD Work Phone: [facility] 03-27-2025 15:46-0400 Diastolic blood pressure 80 mm[Hg] Lizzette Mcneill MD Work Phone: [facility] 03-27-2025 15:46-0400 Heart rate 86 /min Lizzette Mcneill MD Work Phone: [facility] 03-27-2025 15:46-0400 Respiratory rate 16 /min Lizzette Mcneill MD Work Phone: [facility] 03-27-2025 15:46-0400 SaO2% (BldA) [Mass fraction] 95 % Lizzette Mcneill MD Work Phone: [facility] 03-27-2025 15:46-0400 Systolic blood pressure 144 mm[Hg] Lizzette Mcneill MD Work Phone: [facility] 02-21-2025 11:27-0400 Body mass index (BMI) [Ratio] 39.55 kg/m2 Lizzette Mcneill MD Work Phone: [facility] 02-21-2025 11:27-0400 Body temperature 97 [degF] Lizzette Mcneill MD Work Phone: [facility] 02-21-2025 11:27-0400 Body weight 89.81 kg Lizzette Mcneill MD Work Phone: [facility] 02-21-2025 11:27-0400 Diastolic blood pressure 83 mm[Hg] Lizzette Mcneill MD Work Phone: [facility] 02-21-2025 11:27-0400 Heart rate 82 /min Lizzette Mcneill MD Work Phone: [facility] 02-21-2025 11:27-0400 Respiratory rate 17 /min Lizzette Mcneill MD Work Phone: [facility] 02-21-2025 11:27-0400 SaO2% (BldA) [Mass fraction] 94 % Lizzette Mcneill MD Work Phone: [facility] 02-21-2025 11:27-0400 Systolic blood pressure 136 mm[Hg] Lizzette Mcneill MD Work Phone: [facility] 12-26-2024 09:31-0400 Body height 154.9 cm Ted Kang MD Work Phone: [facility] 12-26-2024 09:31-0400 Body mass index (BMI) [Ratio] 37.03 kg/m2 Ted Kang MD Work Phone: [facility] 12-26-2024 09:31-0400 Body weight 88.91 kg Ted Kang MD Work Phone: [facility] 06-05-2023 09:51-0400 Body temperature 97.4 [degF] Dr. Khoi Nguyễn Work Phone: [facility] 06-05-2023 09:51-0400 Diastolic blood pressure 61 mm[Hg] Dr. Khoi Nguyễn Work Phone: [facility] 06-05-2023 09:51-0400 Heart rate 58 /min Dr. Khoi Nguyễn Work Phone: [facility] 06-05-2023 09:51-0400 Respiratory rate 16 /min Dr. Khoi Nguyễn Work Phone: [facility] 06-05-2023 09:51-0400 SaO2% (BldA) [Mass fraction] 97 % Dr. Khoi Nguyễn Work Phone: [facility] 06-05-2023 09:51-0400 Systolic blood pressure 108 mm[Hg] Dr. Khoi Nguyễn Work Phone: [facility] 06-05-2023 08:48-0400 Body height 154.[address] Khoi Nguyễn Work Phone: [facility] 06-05-2023 08:48-0400 Body mass index (BMI) [Ratio] 37.8 kg/m2 Dr. Khoi Nguyễn Work Phone: [facility] 06-05-2023 08:48-0400 Body weight 90.[address] Khoi Nguyễn Work Phone: [facility] 04-24-2023 12:47-0400 Body mass index (BMI) [Ratio] 37.8 kg/m2 Dr. Khoi Nguyễn Work Phone: [facility] 04-24-2023 12:47-0400 Body temperature 97.6 [degF] Dr. Khoi Nguyễn Work Phone: [facility] 04-24-2023 12:47-0400 Body weight 90.[address] Khoi Nguyễn Work Phone: [facility] 04-24-2023 12:47-0400 Diastolic blood pressure 89 mm[Hg] Dr. Khoi Nguyễn Work Phone: [facility] 04-24-2023 12:47-0400 Heart rate 71 /min Dr. Khoi Nguyễn Work Phone: [facility] 04-24-2023 12:47-0400 Respiratory rate 17 /min Dr. Khoi Nguyễn Work Phone: [facility] 04-24-2023 12:47-0400 SaO2% (BldA) [Mass fraction] 95 % Dr. Khoi Nguyễn Work Phone: [facility] 04-24-2023 12:47-0400 Systolic blood pressure 165 mm[Hg] Dr. Khoi Nguyễn Work Phone: [facility] Encounters Encounter Date Encounter Type Care Provider Facility Start: 04-14-2025 End: 04-14-2025 ambulatory [facility] Start: 04-14-2025 End: 04-14-2025 Encounter for other preprocedural examination [facility] Start: 04-11-2025 Evaluation and management of inpatient [facility] Start: 04-07-2025 End: 04-07-2025 Office outpatient new 45 minutes Sohail Luu MD Work Phone: [facility] Comment on above: Abdominal wall mass (Primary Dx); Endometrial cancer (Multi) Start: 04-07-2025 End: 04-07-2025 ambulatory [facility] Start: 04-03-2025 End: 04-03-2025 ambulatory [facility] Start: 03-27-2025 End: 03-27-2025 Office outpatient visit 15 minutes Lizzette Mcneill MD Work Phone: [facility] Comment on above: Endometrial cancer ( Multi) (Primary Dx) Start: 03-27-2025 End: 03-27-2025 ambulatory LIZZETTE Stone MCNEILL [facility] Start: 03-10-2025 End: 03-10-2025 Subsequent hospital visit by physician [facility] [address] [facility] Comment on above: Endometrial cancer ( Multi) Arrived Start: 03-10-2025 End: 03-10-2025 ambulatory LIZZETTE Stone MCNEILL [facility] Start: 02-21-2025 End: 02-21-2025 ambulatory LIZZETTE [facility] Start: 02-21-2025 End: 02-21-2025 Office outpatient visit 40 minutes Lizzette Mcneill MD Work Phone: [facility] Comment on above: Endometrial cancer ( Multi) (Primary Dx) Start: 01-03-2025 End: 01-03-2025 ambulatory DOCTOR AMB Facility:[facility] Start: 12-26-2024 End: 12-26-2024 Office outpatient new 45 minutes Ted Kang MD Work Phone: Orthopaedics Comment on above: Abdominal mass, righ t lower quadrant (Primary Dx) Start: 12-26-2024 End: 12-26-2024 ambulatory TED KANG Facility:[facility] Start: 12-26-2024 End: 12-26-2024 Subsequent hospital visit by physician Xr Chest Main A[facility] Radiology Comment on above: Right lower quadrant abdominal mass [R19.03] Start: 06-05-2023 Non-patient / Non-visit Dr. Marli Nguyễn Work Phone: [facility] Start: 06-05-2023 End: 06-05-2023 Admission to same day surgery center Dr. Khoi Nguyễn Work Phone: [facility] Work Phone: Start: 06-05-2023 End: 06-05-[address] Khoi Nguyễn Work Phone: [facility] Work Phone: Start: 04-24-2023 End: 04-24-[address] Khoi Nguyễn Work Phone: [facility] Work Phone: Start: 01-27-2023 ambulatory Sonja Winchester Facility: [id number] Procedures Date Procedure Procedure Detail Performing Clinician Start: 08-01-[address] atten uation skull base mid-thigh Lizzette Mcneill MD Work Phone: Start: 12-26-2024 Radiologic exam ches t 2 views Ted Kang MD Work Phone: Start: 06-05-2023 End: 06-05-[address] Khoi sawant Work Phone: Plan of Treatment Date Care Activity Detail Author Start: 04-08-2034 DTaP/Tdap/Td Vaccine s (3 - Td or Tdap) DTaP/Tdap/Td Vaccines (3 - Td or Tdap) [facility] Start: 04-08-2034 Urine microalbumin profile DTaP,Tdap,Td Vaccine (3 - Td or Tdap) [facility] Start: 06-05-2033 Screening for malign ant neoplasm of colon [facility] Start: 04-18-2025 End: 04-18-2025 Admission to same day surgery center 04/18/2025 10:50 AM EDT - 04/18/2025 3:00 PM EDT Surgery [facility] [place] [facility] [place] [address] [place] [address] [place] [address] [place] [address] Exploratory laparotomy, tumor debulking [57210 (CPT )] [facility] [place] Comment on above: Exploratory laparoto my, tumor debulking [97985 (CPT )] Start: 04-18-2025 End: 04-18-2025 Lapt stg/restg ovarian tubal/prim mal 2nd look LAPAROTOMY, EXPLORATORY, FOR STAGING Endometrial cancer (Multi) 04/18/2025 10:50 AM EDT Virtual [facility] Start: 04-18-2025 Subsequent hospital visit by physician 04/18/2025 9:20 AM EDT Hospital Encounter [facility] [place] [address] [place] [address] [place] [address] [place] [address] [facility] Start: 04-14-2025 End: 04-14-2025 Admission to establishment 04/14/2025 10:30 AM EDT Pre-Admission Testing [facility] [address] [place] [address] [facility] Start: 04-10-2025 Influenza vaccination Influenza Vacc ine (#1) [facility] Start: 03-27-2025 End: 03-27-2025 Patient encounter procedure 03/27/2025 3:40 PM EDT Office Visit [facility] [id number] [place] [address] [address] [place] [address] [place] [address] [place] [address] [facility] Start: 03-10-2025 End: 03-10-2025 Patient encounter procedure [facility] Start: 02-21-2025 End: 02-21-2026 PT Guidance for radiation treatment of Unspecified body region NM PET CT FDG oncology Imaging Routine Endometrial cancer (Multi) Expected: 02/21/2025, Expires: 02/21/2026 [facility] Service Area Work Phone: Comment on above: Expected: 02/21/2025 , Expires: 02/21/2026 Start: 02-06-2025 End: 02-06-2025 Patient encounter procedure 02/06/2025 2:30 PM EDT Office Visit Orthopaedics [address] [address] Ted Kang MD [address] [place] [address] Follow up Orthopaedics Comment on above: Follow up Start: 12-06-2024 Diabetes Screening Diabetes Screenin g [facility] Start: 08-10-2024 Advance Directive Discussion Advance Directive Discussion [facility] Start: 04-10-2024 COVID-19 Vaccine ( season) COVID-19 Vaccine ( season) [facility] Start: 04-10-2024 Covid-19 Vaccine ( season) Covid-19 Vaccine ( season) [facility] Start: 06-05-2023 Patient discharge [facility] Start: 12-01-2020 Screening for osteoporosis [facility] Start: 12-01-2000 Lipid panel Lipid Screening [facility] Start: 12-01-2000 Screening for malign ant neoplasm of colon [facility] Start: 1995 Screening for malign ant neoplasm of breast [facility] Start: 12-01-1973 Anxiety Screening Anxiety Screening [facility] Start: 12-01-1973 Depression Screening Depression Scre ening [facility] Start: 12-01-1973 Hepatitis C screening Hepatitis C Sc coreyning [facility] Start: 12-01-1956 MMR Vaccines (1 of 1 - Standard series) MMR Vaccines (1 of 1 - Standard series) [facility] Start: 1955 Lipid panel Lipid Panel [facility] Start: 1955 Screening for malign ant neoplasm of colon [facility] Start: 1955 Screening for osteoporosis Bone Density Scan [facility] Start: 1955 Yearly Adult Physical Yearly Adult P hysical [facility] Colonoscopy [facility] Lapt stg/restg ovari an tubal/prim mal 2nd look LAPAROTOMY, EXPLORATORY, FOR STAGING Endometrial cancer (Multi) Virtual [facility] Patient referral [facility] Work Phone: Tissue Pathology bio psy report SURGICAL PATHOLOGY Lab Routine Abdominal mass, right lower quadrant Ordered: 12/26/[address] [facility] Work Phone: Comment on above: Ordered: 12/26/2024 Immunizations Immunization Date Immunization Notes Care Provider Opal moreno 10-10-2024 influenza virus vaccine, unspecified formulation Lizzette Mcneill MD Work Phone: [facility] Work Phone: Payers Date Payer Category Payer Private Health Insurance [facility] [employer] [id number] 2021 Unknown [id number] [facility] [id number] 1998 Unknown [id number] 18 1955 Unknown [id number] 1955 Unknown [id number] 1955 Unknown [id number] 1955 Unknown [id number] 1955 Unknown [id number] 1955 Unknown [id number] 1955 Unknown [id number] 1955 Unknown [id number] 1955 Unknown [id number] Social History Date Type Detail Facility Start: 05-28-2023 Tobacco smoking status NHIS Unknown if ever smoked [facility] Start: 1955 Sex Assigned At Female [facility] Start: 12-26-2024 Tobacco smoking status NHIS Never smoked tobacco [facility] Start: 12-26-2024 Tobacco use and exposure Smokeless tobacco non-user [facility] Start: 12-26-2024 End: 04-07-2025 Alcoholic beverage intake Ex-drinker (finding) [facility] Start: 12-26-2024 End: 04-07-2025 History of Social function [facility] Start: 12-26-2024 End: 04-07-2025 Tobacco use panel [facility] Start: 07-05-2022 National Score (1-100), lower number is lower risk 60 [facility] Start: 12-26-2024 Alcohol Comment very rarely [facility] Start: 1955 Sex assigned at Not on file [facility] Start: 03-10-2025 Gender identity Identifies as female gender (finding) [facility] Work Phone: Start: 03-27-2025 Tobacco smoking status NHIS Ex-smoker [facility] History of tobacco use Current smoker [facility] Work Phone: History of tobacco use Cigarette Smoker [facility] Work Phone: Start: 03-27-2025 Tobacco use and exposure Former smokeless tobacco user [facility] Work Phone: NEGATED: Highlighted row [facility] Goals Date Patient Goal Desired Activity /State Mental Status Date Assessment Result Facility 06-05-2023 Cognitive function Appropriate;F ollows Commands [facility] Work Phone: Clinical Notes 06-05-2023 to 04-07-2025 Sohail Luu MD - 04/07/2025 9:00 AM Kartik Mcneill MD - 03/27/2025 3:40 PM EDTAddendum Note - Lizzette Mcneill MD - 03/27/2025 3:40 PM Kartik Mcneill MD - 02/21/2025 11:00 AM EDT Note Date & Type Note Facility 04-07-2025 History of Present illness Narrative Keya Harris [id number] 03/29/25 9:32 AM HPI/Subjective: Keya Harris is a 69 y.o. female with history of HLD, CELINA (on CPAP), endometrial cancer who is referred to clinic by Lizzette Mcneill MD for evaluation of abdominal wall closure at the time of cancer resection. She did not undergo any chemo or radiation after her hyst. They note a bulge in the right flank. Has been growing. Symptomatically, this patient experiences pain intermittently. They have had no prior repairs. 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 Past medical history is significant for: sleep apnea (on CPAP), endometrial cancer, bipolar disorder, GERD, HLD, hypothyroidism, psoriasis, lumbar intervertebral disc degeneration Hepatic insufficiency or liver failure - No Ascites - No Hypertension - No Diabetes mellitus - No Dialysis (acute or chronic renal failure requiring dialysis within 2 weeks prior to surgery) - None COPD - No Dyspnea - No Antiplatelet medications excluding aspirin - No Anticoagulation medications - No Aspirin - No Immunosuppression - No Nicotine use in relation to OR date - No, former History of AAA - No Collagen vascular disorder - No Congestive heart failure - No Active - No Review of Systems Constitutional: Negative for activity change, appetite change, chills, diaphoresis, fatigue, fever and unexpected weight change. Respiratory: Negative for cough, chest tightness and shortness of breath. Cardiovascular: Negative for palpitations and leg swelling. Gastrointestinal: Negative for abdominal pain, anal bleeding, blood in stool, constipation, diarrhea, nausea, rectal pain and vomiting. Genitourinary: Negative for difficulty urinating, dysuria and hematuria. Neurological: Negative for dizziness, weakness and light-headedness. Objective: Body mass index is 38.98 kg/m . Physical Exam Vitals reviewed. Exam conducted with a field specialist present. Constitutional: General: She is not in acute distress. Appearance: Normal appearance. She is not ill-appearing. HENT: Head: Normocephalic. Mouth/Throat: Mouth: Mucous membranes are moist. Eyes: Extraocular Movements: Extraocular movements intact. Pupils: Pupils are equal, round, and reactive to light. Cardiovascular: Rate and Rhythm: Normal rate and regular rhythm. Pulses: Normal pulses. Heart sounds: Normal heart sounds. No murmur heard. Pulmonary: Effort: Pulmonary effort is normal. No respiratory distress. Breath sounds: Normal breath sounds. No wheezing, rhonchi or rales. Chest: Chest wall: No tenderness. Abdominal: General: There is no distension. Palpations: There is no mass. Tenderness: There is no abdominal tenderness. There is no guarding or rebound. Hernia: No hernia is present. Musculoskeletal: General: No swelling or deformity. Cervical back: Neck supple. No rigidity. Right lower leg: No edema. Left lower leg: No edema. Skin: General: Skin is warm. Coloration: Skin is not jaundiced or pale. Neurological: General: No focal deficit present. Mental Status: She is alert and oriented to person, place, and time. Mental status is at baseline. Psychiatric: Mood and Affect: Mood normal. Behavior: Behavior normal. Thought Content: Thought content normal. Judgment: Judgment normal. Imaging consisting of PET scan was reviewed personally and was notable for 6x6cm right flank mass centered in the obliques. Assessment/Plan: Keya Harris is a 69 y.o. female with history of HLD, CELINA (on CPAP), endometrial cancer who presents with a 6-7cm abdominal wall mass. We will plan to help in this patient's surgery on April 18. We discussed options for abdominal closure including absorbable monofilament suture, mesh suture, and bridging mesh. We did discuss the idea of doing a definitive reconstruction at the same time, however I think that this would be higher risk in case the patient might need future chemotherapy or radiation, and so if there is any question I would favor doing something less complex. I will see the patient back in the office in the postoperative period. The patient did provide consent for surgery and participation in the [facility] at this clinic visit. Portions of medical record reviewed for pertinent issues including active problem list, medication list, allergies, social history, health maintenance, notes from previous encounters, lab results, and imaging. Of note, I am requesting a G2211 modifier for this visit, given that I am going to be the person providing longitudinal management of this patient's abdominal wall, which will require multiple visits, and potentially multiple surgeries in a staged fashion. Sohail Luu MD gta Division of General Surgery Department of Surgery documented in this encounter [facility] Work Phone: 03-27-2025 History of Present illness Narrative Patient ID: Keya Harris is a 69 y.o. female. Referring Physician: [place] [id number] [place] [address] Primary Care Provider: Rian Stephen, [employer]TER Subjective No new symptoms Occasional pain PET/CT with isolated disease Objective BSA: 1.92 meters squared BP 144/80 (BP Location: Right arm, Patient Position: Sitting, BP Cuff Size: Adult) Pulse 86 Temp 36.9 C (98.4 F) (Temporal) Resp 16 Wt 87.7 kg (193 lb 5.5 oz) SpO2 95% BMI 38.62 kg/m Physical Exam Vitals and nursing note reviewed. Constitutional: Appearance: Normal appearance. HENT: Head: Normocephalic. Eyes: Pupils: Pupils are equal, round, and reactive to light. Cardiovascular: Rate and Rhythm: Normal rate and regular rhythm. Pulmonary: Effort: Pulmonary effort is normal. Breath sounds: Normal breath sounds. Abdominal: General: Abdomen is flat. Palpations: Abdomen is soft. Tenderness: There is no abdominal tenderness. Musculoskeletal: General: Normal range of motion. Cervical back: Normal range of motion and neck supple. Skin: General: Skin is warm and dry. Neurological: Mental Status: She is alert and oriented to person, place, and time. Psychiatric: Mood and Affect: Mood normal. Behavior: Behavior normal. Performance Status: Symptomatic; fully ambulatory Assessment/Plan Oncology History Overview Note Cancer history December 05, 2021 1. Robotic assisted total laparocopic hysterectomy 2. Bilateral salpingoophorectomy 3. Bilateral sentinel pelvic lymphadenectomy Tumor Board: Refer to radiation oncology. Patient declined RT referral 11/2024 seen at [facility] with abdominal pain, abdominal wall mass. CT with no other findings US guided biopsy of mass - recurrent endometrial cancer, p53 patchy pos - non aberrant, wild type pattern ER focal weak positive, MMRd (loss of MLH1/PMS2), + MLH1 promoter methylation, POLE neg Endometrial cancer (Multi) 02/21/2025 Initial Diagnosis Endometrial cancer (Multi) Problem List Items Addressed This Visit ICD-10-CM Endometrial cancer (Multi) - Primary C54.1 Treatment Plans No treatment plans exist Reviewed natural history and prognosis of recurrent endometrial cancer. Discussed role for surgical resection given isolated disease. Will coordinate surgical resection with hernia specialist. Follow-up for surgery. Risks of surgery including bleeding infection and damage nearby structures were reviewed She will need preadmission testing documented in this encounter [facility] Work Phone: 03-27-2025 Miscellaneous Notes Addended by: LIZZETTE MCNEILL on: 03/27/2025 04:28 PM Modules accepted: Orders documented in this encounter [facility] Work Phone: 03-27-2025 Note Addended by: LIZZETTE CHING on: 03/27/2025 04:28 PM Modules accepted: Orders [facility] Work Phone: 02-21-2025 History of Present illness Narrative Patient ID: Keya Harris is a 69 y.o. female. Referring Physician: No referring provider defined for this encounter. Primary Care Provider: Rian Stephen APRN-DINA Referred by [facility] Subjective 66 year old with recurrent endometrial cancer Cancer history December 05, 2021 1. Robotic assisted total laparocopic hysterectomy 2. Bilateral salpingoophorectomy 3. Bilateral sentinel pelvic lymphadenectomy Tumor Board: Refer to radiation oncology. Patient declined RT referral 11/2024 seen at [facility] with abdominal pain, abdominal wall mass. CT with no other findings US guided biopsy of mass - recurrent endometrial cancer HPI Interval History: States she went to the [facility] and then the clinic for an abdominal wall mass she felt and then she had a biopsy. Denies issues after biopsy. Keya is experiencing fatigue, weight loss and decreased appetite, she is going to the bathroom normally and eating and drinking normally. She is performing ADLs as normal. Objective BSA: 1.94 meters squared BP 136/83 (BP Location: Right arm, Patient Position: Sitting, BP Cuff Size: Adult) Pulse 82 Temp 36.1 C (97 F) Resp 17 Wt 89.8 kg (198 lb) SpO2 94% BMI 39.55 kg/m Physical Exam Vitals and nursing note reviewed. Constitutional: Appearance: Normal appearance. HENT: Head: Normocephalic. Eyes: Pupils: Pupils are equal, round, and reactive to light. Cardiovascular: Rate and Rhythm: Normal rate and regular rhythm. Pulmonary: Effort: Pulmonary effort is normal. Breath sounds: Normal breath sounds. Abdominal: General: Abdomen is flat. Palpations: Abdomen is soft. Tenderness: There is no abdominal tenderness. Comments: Firm, fairly mobile mass involving the right side of the abdomen beneath a right sided port site. Approximately 8 cm in size Genitourinary: Comments: Vaginal mucosa is normal Bimanual exam is normal Musculoskeletal: General: Normal range of motion. Cervical back: Normal range of motion and neck supple. Skin: General: Skin is warm and dry. Neurological: Mental Status: She is alert and oriented to person, place, and time. Psychiatric: Mood and Affect: Mood normal. Behavior: Behavior normal. Performance Status: Symptomatic; fully ambulatory Assessment/Plan Oncology History No history exists. Treatment Plans No treatment plans exist Reviewed natural history and prognosis of recurrent endometrial cancer. Discussed approaches to treatment including radiation and chemotherapy and/or surgery. Reviewed imaging reports from the [facility]. also reviewed pathology report from the [facility]. Discussed recommendations for PET scan to assess for metastatic disease. Discussed possibility of surgical resection of abdominal wall mass. Would likely need to involve general surgeon for abdominal wall reconstruction. Follow-up after PET scan for treatment discussion and surgical plans. Scribe Attestation By signing my name below, Sierra Vasquez Scribe attest that this documentation has been prepared under the direction and in the presence of Lizzette Mcneill MD. documented in this encounter [facility] Work Phone: 12-26-2024 Instructions Brenda Campbell RN - 12/26/2024 10:17 AM EDT Interventional radiology will reach out to you to schedule a biopsy This can take between 7-10 days Pathology results can take 1-3 weeks *sometimes longer* Please schedule follow up appointment at [facility] or by calling [phone] Kang in 3-4 weeks If scheduling a virtual appointment: appointment must be a video visit (zoom and electronic device required) in the LAST slot of the day (3:30 pm). We may be running late prior to your virtual visit because we must see all patients in clinic first. Please log in on time, but please be patient if we are not available immediately. If you prefer a sooner appointment, you may need to come in person. documented in this encounter [facility] 12-26-2024 History of Present illness Narrative Orthopaedic Oncology New Patient Evaluation Chief Complaint: No chief complaint on file. Referring Physician: Ted Kang History of Present Illness: Ms. Harris is a 69 year old female with a history of CELINA (on CPAP), bipolar disorder, HLD, hypothyroidism who is presenting with a palpable abdominal mass. Approximately 2 months ago. She notes that she was in the shower and noticed a mass approximately the size of a kiwi on the right side of her abdomen. She denies any constitution symptoms at this time but believes it is now about the size of an orange. She says the pain is burning or aching in nature and has been more frequent and more intense in nature over the last 2 months. She notices most of the pain when she is lifting (specifically lifting things for work). She is here today with her sister Janet. [facility] and she was referred here. 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 No current facility-administered medications on file prior to visit. No family history on file. Physical Examination: There were no vitals taken for this visit. No acute distress. Breathing comfortably on RA. Warm and well-perfused peripherally. Firm mobile mass within the abdominal musculature on the right lower abdomen. Nontender to palpation of the mass. No appreciable axillary or inguinal lymphadenopathy. Intact hip flexion without worsening pain. Distally neurovascularly intact. Slight Trendelenburg gait (secondary to long history of bilateral hip osteoarthritis). Results Reviewed: MRI abdomen/pelvis: Well-circumscribed mass within the external oblique muscle peripherally enhances with contrast with nonenhancement centrally. Isointense/hypointense on T2 and hyperintense on T1. Impression/Plan: This is a 69 year old female with a history of endometrial adenocarcinoma s/p robotic FELICIA who is presenting with a palpable mass for 2 months. She is here for evaluation. We discussed that the features of this mass are concerning and require further investigation. A biopsy of the mass under image guidance is the appropriate next step. A biopsy will help us better characterize this mass and guide treatment. We had a discussion about benefits and risks of biopsy and why it could be dangerous to jump to a treatment plan without information that biopsy can provide. She demonstrated understanding and will pursue biopsy. She will likely be contacted with the results of the biopsy and if orthopaedic oncology is not the appropriate specialty to manage this mass, we will ensure she is referred to the appropriate provider. Plan: Mass biopsy under image-guidance, follow up appointment for results review scheduled Marlys Alberts MD PGY-2 Orthopaedic Surgery Return in about 4 weeks (around 01/23/2025). These recommendations are being sent back to Ted Kang via [employer] or Chart CC for [facility] Providers. ATTENDING PHYSICIAN NOTE I have personally interviewed and examined the patient. I agree with the findings in the above note. New and enlarging right flank mass in the setting of localized endometrial carcinoma 2021 status post lap resection. Mass is deep to one lap port. MRI and CT reviewed by me today, concerning for malignancy metastatic carcinoma v sarcoma, less likely benign. Will obtain image guided bx and follow up after results. Will discuss with surgical oncology team after bx. Ted Kang MD Associate Staff, Orthopaedic Surgery Division of Musculoskeletal Oncology Orthopaedic Medical Decision Making (MDM) Complexity of problems: Undiagnosed joint, tendon, ligament or muscle condition, Complexity of data: Independent interpretation of imaging, 2 unique test results reviewed, 1 unique tests ordered, Level of MDM: Moderate (4) documented in this encounter [facility] 12-26-2024 Note HNO ID: [id number] Author: TED KANG MD Service: ? Author Type: Physician Type: Progress Notes Filed: 12/26/2024 20:32 Note Text: Orthopaedic Oncology New Patient Evaluation Chief Complaint: No chief complaint on file. Referring Physician: Ted Kang History of Present Illness: Ms. Harris is a 69 year old female with a history of CELINA (on CPAP), bipolar disorder, HLD, hypothyroidism who is presenting with a palpable abdominal mass. Approximately 2 months ago. She notes that she was in the shower and noticed a mass approximately the size of a kiwi on the right side of her abdomen. She denies any constitution symptoms at this time but believes it is now about the size of an orange. She says the pain is burning or aching in nature and has been more frequent and more intense in nature over the last 2 months. She notices most of the pain when she is lifting (specifically lifting things for work). She is here today with her sister Janet. [facility] and she was referred here. 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 No current facility-administered medications on file prior to visit. No family history on file. Physical Examination: There were no vitals taken for this visit. No acute distress. Breathing comfortably on RA. Warm and well-perfused peripherally. Firm mobile mass within the abdominal musculature on the right lower abdomen. Nontender to palpation of the mass. No appreciable axillary or inguinal lymphadenopathy. Intact hip flexion without worsening pain. Distally neurovascularly intact. Slight Trendelenburg gait (secondary to long history of bilateral hip osteoarthritis). Results Reviewed: MRI abdomen/pelvis: Well-circumscribed mass within the external oblique muscle peripherally enhances with contrast with nonenhancement centrally. Isointense/hypointense on T2 and hyperintense on T1. Impression/Plan: This is a 69 year old female with a history of endometrial adenocarcinoma s/p robotic FELICIA who is presenting with a palpable mass for 2 months. She is here for evaluation. We discussed that the features of this mass are concerning and require further investigation. A biopsy of the mass under image guidance is the appropriate next step. A biopsy will help us better characterize this mass and guide treatment. We had a discussion about benefits and risks of biopsy and why it could be dangerous to jump to a treatment plan without information that biopsy can provide. She demonstrated understanding and will pursue biopsy. She will likely be contacted with the results of the biopsy and if orthopaedic oncology is not the appropriate specialty to manage this mass, we will ensure she is referred to the appropriate provider. Plan: Mass biopsy under image-guidance, follow up appointment for results review scheduled Marlys Alberts MD PGY-2 Orthopaedic Surgery Return in about 4 weeks (around 01/23/2025). These recommendations are being sent back to Ted Kang via [email or web address] or Chart CC for [facility] Providers. ATTENDING PHYSICIAN NOTE I have personally interviewed and examined the patient. I agree with the findings in the above note. New and enlarging right flank mass in the setting of localized endometrial carcinoma 2021 status post lap resection. Mass is deep to one lap port. MRI and CT reviewed by me today, concerning for malignancy metastatic carcinoma v sarcoma, less likely benign. Will obtain image guided bx and follow up after results. Will discuss with surgical oncology team after bx. Ted Knag MD Associate Staff, Orthopaedic Surgery Division of Musculoskeletal Oncology Orthopaedic Medical Decision Making (MDM) Complexity of problems: Undiagnosed joint, tendon, ligament or muscle condition, Complexity of data: Independent interpretation of imaging, 2 unique test results reviewed, 1 unique tests ordered, Level of MDM: Moderate (4) [facility] 12-26-2024 History of Present illness Narrative Radiology Service Progress Note PATIENT NAME: Keya Harris DATE OF SERVICE: December 26, 2024 TIME: 8:20 AM PATIENT IDENTITY VERIFICATION COMPLETED USING TWO (2) IDENTIFIERS: Name and Date of confirmed by patient verbally. FALL SCREENING: Has the patient had 2 falls in the last year or 1 fall with injury or currently using an Ambulatory Assistive Device (Walker, Cane, Wheelchair, Crutches, etc.)? No PATIENT GENDER DATA: Assigned female at . status: : No status: NO. PATIENT RELEVANT IMPLANT DATA REVIEWED: Not Applicable PATIENT PRESENTS WITH AN IMPLANTABLE OR ATTACHED DRAWING INSTRUCTOR: No RADIOLOGY DEPARTMENT: General X-ray: Exam(s) Completed: Chest X-Ray PERIPHERAL IV DATA: Not applicable SIGNED BY: RT Kristel(Sharon) December 26, 2024 8:20 AM documented in this encounter [facility] 12-26-2024 Note HNO ID: [id number] Author: WANDA PRYOR RT(R) Service: Radiology Author Type: Technologist Type: Progress Notes Filed: 12/26/2024 08:21 Note Text: Radiology Service Progress Note PATIENT NAME: Keya Harris DATE OF SERVICE: December 26, 2024 TIME: 8:20 AM PATIENT IDENTITY VERIFICATION COMPLETED USING TWO (2) IDENTIFIERS: Name and Date of confirmed by patient verbally. FALL SCREENING: Has the patient had 2 falls in the last year or 1 fall with injury or currently using an Ambulatory Assistive Device (Walker, Cane, Wheelchair, Crutches, etc.)? No PATIENT GENDER DATA: Assigned female at . status: : No status: NO. PATIENT RELEVANT IMPLANT DATA REVIEWED: Not Applicable PATIENT PRESENTS WITH AN IMPLANTABLE OR ATTACHED DRAWING INSTRUCTOR: No RADIOLOGY DEPARTMENT: General X-ray: Exam(s) Completed: Chest X-Ray PERIPHERAL IV DATA: Not applicable SIGNED BY: RT Kristel(R) December 26, 2024 8:20 AM [facility] 06-05-2023 Procedure note [facility] Evaluation note Diagnosis Onset Date [facility]* Diagnosis Abdominal mass, right lower quadrant- Primary Abdominal or pelvic swelling, mass, or lump, right lower quadrant documented in this encounter [facility] note* Diagnosis Right lower quadrant abdominal mass Abdominal or pelvic swelling, mass, or lump, right lower quadrant documented in this encounter [facility] note* Diagnosis Endometrial cancer (Multi)- Primary Malignant neoplasm of corpus uteri, except isthmus documented in this encounter [facility] Work Phone: Evaluation note* Diagnosis Endometrial cancer (Multi) Malignant neoplasm of corpus uteri, except isthmus documented in this encounter [facility] Work Phone: Evaluation note* Diagnosis Endometrial cancer (Multi)- Primary Malignant neoplasm of corpus uteri, except isthmus documented in this encounter [facility] Work Phone: Evaluation note* Diagnosis Endometrial cancer (Multi)- Primary Malignant neoplasm of corpus uteri, except isthmus Abdominal wall mass- Primary Abdominal or pelvic swelling, mass or lump, unspecified site Endometrial cancer (Multi) Malignant neoplasm of corpus uteri, except isthmus Endometrial cancer (Multi) Malignant neoplasm of corpus uteri, except isthmus documented in this encounter [facility] Work Phone: History and physical note Author Khoi Nguyễn [facility] June 05, 2023 9:13am Note Date/Time June 05, 2023 9 :13am [facility] Medical Records Department [address] [place] [address] History & Physical Exam 06/05/23911 MR#: [id number] Acct: [id number] Name: KEYA HARRIS Rep #:[id number] : 1955 67 From: Khoi rapp MD PCP: [facility] Status:[place] [facility] Location: [place] [address] History and Physical Date of Admission: 06/05/23 Intake Vital Signs 04/24/2312:47 Height 5 ft 1 in Weight: 200 lb BMI 37.8 BP 165/89 H Blood Pressure Location Rt brachial Position Sitting Respiration 17 Pulse 71 Pulse Source NIBP Temp 97.6 F L Temp Source Temporal Pulse Oximetry (%) 95 Oxygen Delivery Method room air Intake Visit Reasons: Colonoscopy Chief Complaint: screening c-scope Clinical Documentation Nurse Required: No Is patient in pain?: No Allergies imipramine Allergy (Mild, Verified 04/24/23 12:48) Rash Medications atorvastatin 80 mg tablet mg PO 04/24/23 [History Confirmed 04/24/23] bupropion HCl (smoking deter) 150 mg tablet,12 hr sustained-release(smoking deterrent) 150 mg PO BID 04/24/23 [History Confirmed 04/24/23] etodolac 300 mg capsule mg PO 04/24/23 [History Confirmed 04/24/23] lamotrigine 200 mg tablet 200 mg PO DAILY 04/24/23 [History Confirmed 04/24/23] levothyroxine 25 mcg tablet (Synthroid) mcg PO 04/24/23 [History Confirmed 04/24/23] Is last menstrual period known: No Post menopausal: Yes Patient : No PFSH Medical History (Updated 04/24/23 @ 15:[address] Khoi Nguyễn MD) Bipolar 1 disorder Carpal tunnel syndrome Degenerative disc disease Depression GERD (gastroesophageal reflux disease) History of endometrial cancer History of hyperlipidemia History of sleep apnea Hypothyroidism Osteoarthritis Psoriasis Surgical History (Updated 04/24/23 @ 12:46 by Liudmila Figueroa) History of cataract extraction History of elbow surgery History of hysterectomy Family History (Updated 04/24/23 @ 12:47 by Liudmila Figueroa) Father Heart diseaseMother Heart disease Hypertension Hyperlipidemia Social History (Updated 04/24/23 @ 12:47 by Liudmila Figueroa) Smoking Status: Former smoker alcohol intake: current substance use type: does not use HPI HPI HPI: Patient is a 67-year-old female here for colonoscopy. She has never had a screening colonoscopy in the past. She denies any abdominal pain or blood in the stool. She has no family history of colon cancer. ROS General General: No weight change, appetite, fatigue, colon cancer, breast cancer or weakness HEENT HEENT: Yes eye surgery; No difficulty swallowing, eye injury, swollen glands or hoarseness Endo Endocrine: Yes thyroid disease; No diabetes mellitus, thyroid cancer, Hair loss, heat intolerance or cold intolerance Musc Musculoskeletal: Yes back problems and arthritis; No rheumatoid arthritis, gout or joint pain Cardio Cardiovascular: No murmur, pacemaker, heart disease, atrial fibrillation, high blood pressure, heart attack, heart stent, palpitations, shortness of breat withexertion or chest pain Psych Psychiatric: Yes depression and anxiety; No hearing voices Resp Respiratory: No shortness of breath, Yes sleep apnea, No cough, No COPD, No asthma, No emphysema and No wheezing Gastro Gastrointestinal: No abdominal pain, No nausea or vomiting, No diarrhea, No constipation, No blood in stool, Yes acid reflux, No hemorrhoids, No ulcers, No gallbladder problem and No black,tarry stools Tao Hematologic: No blood thinners, No blood disorders, No bleeding, No anemia and No blood clots Neuro Neurologic: No weakness Exam Const General: cooperative Orientation: alert and oriented x3 HENMT Head: normal to inspection Neck Neck: normal visual inspection and full ROM Chest Chest palpation & inspection: normal inspection of the chest Resp Effort & Inspection: normal respiratory effort Auscultation: clear to auscultation bilaterally Cardio Rate: regular rate Rhythm: regular rhythm GI Inspection: non-distended Palpation: soft and nontender Skin General: no rashes or lesions noted Neuro General: patient alert and patient oriented x3 Extrem General: full ROM Psych Appearance: grossly normal Mental Status: mental status grossly normal Assessment and Plan Assessment and Plan (1) Screen for colon cancer: Status: Acute Plan: Patient has never had a screening colonoscopy and she was recommended to have one. She received prep from the PA. I explained endoscopy in detail to the patient. I explained the risks including but not limited to stroke or heart attack with anesthesia, perforation of the GI tract, bleeding, infection. I explained that any of these could necessitate further emergency surgery. The patient understands and all questions were answered sufficiently. The patient wishes to proceed with procedure. Khoi Nguyễn MD Pager: [facility] [address] [place] [address], [address] [place] [address] Office: I have examined the patient and the H&P has been reviewed. There are no clinicalchanges since date of exam. 06/05/23912 <Electronically signed by Khoi Nguyễn MD> Cosigner Signature (if applicable): CC: Dr. Khoi Nguyễn MD; [facility]~ Signed [facility] Work Phone: Reason for visit Narrative* Imaging (Routine) - Authorized Specialty Diagnoses / Procedures Referred By Laron chavira Referred To Contact Radiology Diagnoses Endometrial cancer (Multi) Procedures NM PET [place] [address] [place] [address] Phone: tel: fax: Referral ID Status Reason Start Date Expiration Date Visits Requested Visits Authorized [id number] Authorized Perform Procedure 02/21/2025 02/21/2026 3 3 [facility] Work Phone: Reason for visit Narrative* Imaging (Routine) - Authorized Specialty Diagnoses / Procedures Referred By Laron chavira Referred To Contact Radiology Diagnoses Endometrial cancer (Multi) Procedures NM PET [place] [address] [place] [address] Phone: tel: fax: Referral ID Status Reason Start Date Expiration Date Visits Requested Visits Authorized [id number] Authorized Perform Procedure 02/21/2025 02/21/2026 3 3 [facility] Work Phone: Reason for visit Narrative* Consultation (Routine) - Pending Review Specialty Diagnoses / Procedures Referred By Laron t Referred To Contact General Surgery Diagnoses Endometrial cancer (Multi) [place] [address] [place] [address] Phone: tel: fax: [place] [address] [facility] [place] [address] Phone: tel: fax: Referral ID Status Reason Start Date Expiration Date Visits Requested Visits Authorized [id number] Pending Review Specialty Services Required 03/27/2025 03/27/2026 1 1 [facility] Work Phone: Summary Purpose Family History No Family History Records Found Relationship Condition Age at Onset Recorded Date/T homa father Cardiac disease Unknown mother Cardiac disease Unknown Hypertension Unknown Hyperlipidemia Unknown Advance Directives No Advanced Directives Records Found Advance Directive Response Recorded Date/ Time Name of Medical Power of Security Systems Administrator FRIEND May 28, 2023 12:03pm Living Will Yes May 28 12:03pm Power of Security Systems Administrator Yes May 28, 2023 12:03pm Chief Complaint and Reason for Visit Chief Complaint Colonoscopy Reason for Visit Screen for colon can cer Additional Source Comments INFORMATION SOURCE (unrecogn ized section and content) DATE CREATED AUTHOR 01/30/2023 [facility] DATE CREATED AUTHOR AUTHOR'S ORGANIZ ATION 01/17/2025 [facility] DATE CREATED AUTHOR AUTHOR'S ORGANIZ ATION 03/16/2025 [facility] DATE CREATED AUTHOR AUTHOR'S ORGANIZ ATION 04/09/2025 [facility] DATE CREATED AUTHOR AUTHOR'S ORGANIZ ATION 04/17/2025 [facility] DATE CREATED AUTHOR AUTHOR'S ORGANIZ ATION 04/19/2025 [facility] Care Teams (unrecognized sec tion and content) Team Status: Active Member Role Status Dates Dr. Buddy Keene MD Family Provider Active [facility] Primary Care Provider Active Team Status: Inactive Member Role Status Dates Dr. Khoi Nguyễn MD Attending Provider Active Team Status: Active Member Role Status Dates Dr. Khoi Nguyễn MD Attending Provider, Other Provider Active [facility] Primary Care Provider, Referring Provider Active Team Status: Inactive Member Role Status Dates Dr. Khoi Nguyễn MD Attending Provider Active [facility] Primary Care Provider, Referring Provider Active Research Food Technologist Relationship Specialty Start Date End Date Brenda Wayne [address] [place] [address] Referring General Surgery 12/16/24 [address] [address] [place] [address] Referring General Surgery 12/22/24 Research Food Technologist Relationship Specialty Start Date End Date Brenda [place] [address] [place] [address] Referring General Surgery 12/16/24 Brenda [address] [address] [place] [address] Referring General Surgery 12/22/24 Research Food Technologist Relationship Specialty Start Date End Date Rian Stephen APRN-MARKET NEWS REPORTER [address] [id number] PCP - General 11/19/14 [place] [address] [place] [address] Project Portfolio Analyst Obstetrics and Gynecology 02/21/25 Research Food Technologist Relationship Specialty Start Date End Date Rian Stephen APRN-MARKET NEWS REPORTER [address] [id number] PCP - General 11/19/14 [place] [address] [place] [address] Project Portfolio Analyst Obstetrics and Gynecology 02/21/25 Research Food Technologist Relationship Specialty Start Date End Date Zafar Rianterrance Crenshaw APRN-MARKET NEWS REPORTER [address] [place] [address] PCP - General 11/19/14 [place] [address] [place] [address] Project Portfolio Analyst Obstetrics and Gynecology 02/21/25 Research Food Technologist Relationship Specialty Start Date End Date Rian Stephen APRN-MARKET NEWS REPORTER [address] [place] [address] PCP - General 11/19/14 [place] [address] [place] [address] Project Portfolio Analyst Obstetrics and Gynecology 02/21/25 Source Comments (unrecognize d section and content) In the event this informatio n is protected by the Federal Confidentiality of Alcohol and Drug Abuse Patient Records regulations: The Federal rules restrict any use of the information to criminally investigate or prosecute any alcohol or drug abuse patient[facility] the event this information is protected by the Federal Confidentiality of Alcohol and Drug Abuse Patient Records regulations: The Federal rules restrict any use of the information to criminally investigate or prosecute any alcohol or drug abuse patient.[facility] Reason for Visit (unrecogniz ed section and content) Reason Comments New Tumor/Mass Swelling Specialty Diagnoses / Procedures Referred By Laron t Referred To Contact Orthopedics / ORTHOPAEDIC SURGERY Diagnoses Right lower quadrant abdominal swelling, mass and lump RLQ mass Procedures OFFICE/OUTPATIENT NEW HIGH MDM 60 MINUTES WIN NEW TUMOR Ted Kang MD [address] [place] [address] Phone: tel: fax: Ted Kang MD [address] [place] [address] Phone: tel: fax: Referral ID Status Reason Start Date Expiration Date V isits Requested Visits Authorized [id number] Closed Patient Cleared - Admin/Chairm an/Director advise to proceed or did not respond 12/13/2024 06/11/2025 1 1 Reason Comments Follow-up FOR RECORDS PERTAINING TO PATIENTS WHO ARE OR HAVE BEEN ENROLLED IN A CHEMICAL DEPENDENCY/SUBSTANCEABUSE PROGRAM, SOME INFORMATION MAY BE OMITTED. This clinical summary was aggregated from multiple sources. Caution should be exercised in using it in the provision of clinical care. This summary normalizes information from multiple sources, and as a consequence, information in this document may materially change the coding, format and clinical context of patient data. In addition, data may be omitted in some cases. CLINICAL DECISIONS SHOULD BE BASED ON THE PRIMARY CLINICAL RECORDS. [employer] [facility]. provides no warranty or guarantee of the accuracy or completeness of information in this document.
[2025-04-20 22:40] LABS: Prothrombin Time (Protime)PT. 13.5 SECONDS (11.7-14.9)
[2025-04-20 22:41] LABS: Partial Thromboplast Time 26.1 Seconds (24.1-36.2)
[2025-04-20 22:45] VITALS: BP 151/78; PULSE 79; RESP 16; O2SAT 97
[2025-04-20 22:54] VITALS: BP 149/88; PULSE 79; RESP 18; TEMP 36.4; O2SAT 98
[2025-04-20 23:00] VITALS: BP 149/88; PULSE 78; RESP 12; TEMP 36.4; O2SAT 99
[2025-04-20 23:04] LABS: Magnesium 2.0 mg/dL (1.5-2.2)
[2025-04-20 23:05] LABS: Anion Gap 14 (5-15); BUN 14 mg/dL (4-19); BUN/Creat Ratio 20.1 RATIO (10-20); Calcium,Total 9.2 mg/dL (7.6-11.0); Carbon Dioxide 20.2 mmol/L (21.0-32.0); Chloride 107 mmol/L (98-108); Estimated Creatinine Clearance 66.76 ml/min (50-250); Glucose 162 mg/dL (70-99); Potassium 3.8 mmol/L (3.3-5.1)
--- NOTE | 2025-04-20 23:10 | EX.ED.DYSGE1 ---
HPI History of Present Illness Chief Complaint: Palpitations Informant: patient and friend Narrative Narrative: Patient is a 69-year-old female with past medical history of hypothyroidism hyperlipidemia bipolar disorder and endometrial cancer for which she underwent surgery on April 18. She states she stayed in the hospital Thursday and Thursday and was discharged home earlier today. She states roughly an hour ago she began feeling her heart was racing. She states that there is no previous history of abnormal heart rhythm and she denies any excessive stimulant use or illicit drug use. Secondary to the palpitations she presents for evaluation. [facility] Medical History Wears hearing aid Wears dentures Alcohol use High cholesterol Back pain Former smoker CPAP (continuous positive airway pressure) dependence History of pain when walking History of stress test Osteoarthritis Degenerative disc disease GERD (gastroesophageal reflux disease) Hypothyroidism Depression Bipolar 1 disorder Psoriasis Carpal tunnel syndrome History of hyperlipidemia History of sleep apnea History of endometrial cancer Home Medications ?Medication ?Instructions ?Recorded ?Last Taken ?Type atorvastatin 80 mg tablet 80 mg PO QHS 04/24/23 Unknown History bupropion HCl (smoking deter) 150 150 mg PO BID 04/24/23 Unknown History mg tablet,12 hr sustained-release(smoking deterrent) etodolac 300 mg capsule 300 mg PO BID 04/24/23 Unknown History lamotrigine 200 mg tablet 200 mg PO DAILY 04/24/23 Unknown History levothyroxine 25 mcg tablet 25 mcg PO DAILY 04/24/23 Unknown History (Synthroid) metoprolol tartrate 25 mg tablet 25 mg PO BID 30 days #60 tabs 04/20/25 Unknown Rx Allergy/AdvReac Type Severity Reaction Status Date / Time imipramine Allergy Mild Rash Verified 04/20/25 21:53 Family History (Updated 04/24/23 @ 12:47 by Liudmila Figueroa) Father Heart disease Mother Heart disease Hypertension Hyperlipidemia Surgical History History of elbow surgery History of cataract extraction History of hysterectomy Social History (Updated 04/24/23 @ 12:47 by Liudmila Figueroa) Smoking Status: Former smoker alcohol intake: current substance use type: does not use ROS ROS ED Constitutional Constitutional ED: Denies chills or fever(s) Eyes Eyes: Denies change in vision ENT ENT ED: Denies sore throat Cardiovascular Cardiovascular: Reports palpitations and racing heartbeat; Denies chest pain Respiratory/Chest Respiratory/Chest: Denies cough or dyspnea Gastrointestinal Gastrointestinal: Reports abdominal pain; Denies diarrhea, nausea or vomiting Musculoskeletal Musculoskeletal: Denies back pain or myalgias Integumentary Denies rash Neurologic Neurologic: Denies headache(s) Hematologic/Lymphatic Hematologic/Lymphatic: Denies easy bleeding or easy bruising EXAM Physical Exam Const Vital Signs: 04/20/25 21:52 04/20/25 21:54 04/20/25 22:45 Temperature 97.7 F L 97.5 F L Temperature Source Oral Oral Pulse Rate 148 H 127 H 79 Respiratory Rate 16 19 H 16 Blood Pressure 162/116 H 141/101 H 151/78 H Blood Pressure Mean 131 114 102 Pulse Ox 99 98 97 Oxygen Delivery Method Room Air Room Air Room Air 04/20/25 22:54 04/20/25 23:00 Temperature 97.6 F L 97.6 F L Temperature Source Oral Oral Pulse Rate 79 78 Respiratory Rate 18 12 Blood Pressure 149/88 H 149/88 H Blood Pressure Mean 108 108 Pulse Ox 98 99 Oxygen Delivery Method Room Air Room Air Positive well nourished, well developed and obese General Appearance ED: well developed Nutritional Appearance: obese HEENT HEENT Narrative: Normocephalic atraumatic Eyes PERRL and EOMs intact bilaterally General Eye ED: Negative for scleral icterus Neck supple and no JVD Resp normal respiratory effort and clear to auscultation bilaterally Resp Narrative: Breath sounds are diminished throughout but overall clear to auscultation without signs of respiratory distress Cardio Rate: other Other Details: Irregularly irregular rhythm with tachycardic rate consistent with A-fib with RVR No pleuritic chest pain reported GI non-distended GI Narrative: Abdomen is soft and nondistended with hypoactive bowel sounds. Patient has postoperative incision along the right lower abdominal wall with a STEPHANIE drain in place draining serosanguineous fluid. The wound appears clean dry and intact without secondary findings of infection. No rigidity or peritoneal signs No pulsatile mass or fluid wave Auscultation: hypoactive bowel sounds Palpation: soft Extremity normal to inspection Extremity Narrative: No asymmetric edema no pitting edema negative Homans' sign bilaterally Neuro oriented x3, CN's II-XII intact bilaterally and no sensory deficits noted Sensorium / Orientation: alert Motor Exam: strength 5/5 throughout Psych Mood & Affect: anxious Skin Skin Narrative: Postoperative changes to the abdominal wall as documented above MDM MDM MDM Narrative Medical decision making narrative: Patient arrived to the ER hypertensive and tachycardic. She reported palpitations and with a recent history of surgery there is concern for abnormal heart rhythms such as atrial fibrillation or atrial flutter. Patient could also have acute blood loss anemia thyroid dysfunction or electrolyte abnormality. She denied any type of chest pain upon arrival or pleuritic chest pain and she is only felt the palpitations for roughly 1 hour and therefore my concern for underlying PE is low and I do not feel the need for a D-dimer or CTA. The patient's blood work revealed anemia but it is well above the value of 7 and not clinically significant. Otherwise there is no signs of acute kidney injury or electrolyte abnormality. Thyroid is within normal function as well. The patient was given IV fluid as well as 2 doses of 5 mg IV Lopressor. After the second dose the patient converted to normal sinus rhythm which was confirmed by EKG. I then discussed the case with the stakes player on-call Dr. Aguayo. He states with a Chadvas score of 2 she is overall low risk and simply recommends a full-strength aspirin daily and not true anticoagulation with Eliquis or Xarelto. The patient was placed on 25 mg metoprolol tartrate twice a day to help with blood pressure and rate control as well. Dr. Aguayo did recommend a D-dimer because of her recent surgical procedure. I did discuss this with the patient. She states that she feels perfectly normal at this time and as she is outside of the abnormal heart rhythm she does not want to stay in the hospital any longer. She states that she does not have chest pain or shortness of breath and she has low concern that she has a blood clot and therefore does not want the test performed and would prefer to be discharged home as she is now in normal sinus rhythm with stable vitals. Therefore I will discharge the patient as requested and she can follow-up with cardiology to discuss any further testing or treatment options regarding her paroxysmal A-fib. At this time however she is in normal sinus rhythm with stable vitals no respiratory distress or pleuritic chest pain. She will continue full-strength aspirin as well as metoprolol tartrate twice a day along with her other medications. She understands to return if symptoms worsen or she has any further concerns. History & Record Review Discussion w/independent historian: Patient and Friend Lab Data Attestation: I reviewed the patient's lab results. Labs: Laboratory Results - last 24 hr 04/20/25 22:19 WBC 9.1 RBC 3.67 L Hgb 11.1 L Hct 35.2 L MCV 95.9 MCH 30.2 MCHC 31.5 L RDW Std Deviation 49.2 H RDW Coeff of Dayron 13.8 Plt Count 285 MPV 10.1 Immature Gran % (Auto) 0.700 Neut % (Auto) 66.5 Lymph % (Auto) 17.6 L [place] % (Auto) 11.5 H Eos % (Auto) 3.2 Baso % (Auto) 0.5 Absolute Neuts (auto) 6.1 Absolute Lymphs (auto) 1.60 Nucleated RBC % 0 PT 13.5 INR 1.0 APTT 26.1 Sodium 141 Potassium 3.8 Chloride 107 Carbon Dioxide 20.2 L Anion Gap 14 BUN 14 Creatinine 0.71 Estim Creat Clear Calc 66.76 Est GFR (MDRD) Non-Af 92 BUN/Creatinine Ratio 20.1 H Glucose 162 H Calcium 9.2 Magnesium 2.0 TSH 1.370 Management Discussion w/another healthcare provider: Labor Employment Associate Discharge Plan Triage Chief Complaint: Palpitations ED Provider: Alexander Wright Dx/Rx/DC Orders Clinical Impression: Paroxysmal atrial fibrillation with rapid ventricular response, Bipolar 1 disorder, Hypothyroidism, Hyperlipidemia Instructions: AFib Dc Prescriptions: New metoprolol tartrate 25 mg tablet 25 mg PO BID 30 Days Qty: 60 0RF No Action levothyroxine [Synthroid] 25 mcg tablet 25 mcg PO DAILY atorvastatin 80 mg tablet 80 mg PO QHS etodolac 300 mg capsule 300 mg PO BID bupropion HCl (smoking deter) 150 mg tablet extended release 12 hr 150 mg PO BID lamotrigine 200 mg tablet 200 mg PO DAILY [facility] Care Provider[facility] [place] Referrals: Marco Antonio Aguayo MD [Med Staff - Active Staff] - (Paroxysmal atrial fibrillation) [facility] [Primary Care Provider] - Activity Restrictions/Additional Instructions: Please continue to take the metoprolol twice a day for blood pressure and heart rate control. Take a full-strength/325 mg aspirin once daily as well to help with anticoagulation. Follow-up with cardiology for further treatment options of your recent bout of A-fib and return to the ER should you have any further concerns Print Language: Swazi Disposition Disposition: Home, Self Care
[2025-04-20 23:32] VITALS: BP 145/81; PULSE 80; RESP 14; TEMP 36.7; O2SAT 98
== END 2025-04-20 23:40 | disposition home or self-care (01) ==
PROVIDERS: Emergency Provider Emergency Medicine; Visit Provider Emergency Medicine
DX: I48.0 Paroxysmal atrial fibrillation (principal); F31.9 Bipolar disorder, unspecified; E78.5 Hyperlipidemia, unspecified; E03.9 Hypothyroidism, unspecified; Z87.891 Personal history of nicotine dependence; E66.9 Obesity, unspecified; R10.9 Unspecified abdominal pain; Z90.710 Acquired absence of both cervix and uterus; Z85.89 Personal history of malignant neoplasm of other organs and systems
CPT/HCPCS: 80048; 83735; 84443; 85025; 85610; 85730; 93005; 96360; 99284

== ENCOUNTER 2025-04-22 22:58 | Emergency (ER) | payer BC, SELFPAY ==
[2025-04-22 22:59] VITALS: BP 146/79; PULSE 163; RESP 18; TEMP 36.8; O2SAT 99; BMI 35.9
--- NOTE | 2025-04-22 23:20 | EKG12_ITS ---
Test Reason : DYSRHYTHMIA Blood Pressure : */* mmHG Vent. Rate : 124 BPM Atrial Rate : * BPM P-R Int : * ms QRS Dur : 80 ms QT Int : 308 ms P-R-T Axes : * 49 -10 degrees QTcB Int : 442 ms Atrial fibrillation with rapid ventricular response Nonspecific ST and T wave abnormality Abnormal ECG Confirmed by Earle Nix ([id number]), advertising editor TONG JONES ([id number]) on 04/24/2025 1:24:55 PM Referred By: ER Confirmed By: Earle Nix
--- NOTE | 2025-04-22 23:27 | ED.VIS.CHEST ---
HPI History of Present Illness Chief Complaint: Palpitations Narrative Narrative: Patient is a 69-year-old female presenting to the emergency department for palpitations. Patient has a past medical history of bipolar 1 disorder, hypothyroidism, hyperlipidemia and paroxysmal A-fib with RVR. Patient states that on Thursday she had endometrial cancer removed at . She was discharged on from the hospital and then came here for evaluation after palpitations started. She was evaluated and determined to be in A-fib with RVR which was new for her. She was discharged home after conversion to normal sinus rhythm after fluids and metoprolol and was prescribed metoprolol for home which she states she has not been able to pick pulling machine tender yet. States that tonight around 10:30 PM she developed palpitations again. Denies any chest pain, shortness of breath, cough, fevers, chills, nausea, vomiting, abdominal pain. [facility] Medical History Afib Wears hearing aid Wears dentures Alcohol use High cholesterol Back pain Former smoker CPAP (continuous positive airway pressure) dependence History of pain when walking History of stress test Osteoarthritis Degenerative disc disease GERD (gastroesophageal reflux disease) Hypothyroidism Depression Bipolar 1 disorder Psoriasis Carpal tunnel syndrome History of hyperlipidemia History of sleep apnea History of endometrial cancer Home Medications ?Medication ?Instructions ?Recorded ?Last Taken ?Type atorvastatin 80 mg tablet 80 mg PO QHS 04/24/23 Unknown History bupropion HCl (smoking deter) 150 150 mg PO BID 04/24/23 Unknown History mg tablet,12 hr sustained-release(smoking deterrent) etodolac 300 mg capsule 300 mg PO BID 04/24/23 Unknown History lamotrigine 200 mg tablet 200 mg PO DAILY 04/24/23 Unknown History levothyroxine 25 mcg tablet 25 mcg PO DAILY 04/24/23 Unknown History (Synthroid) metoprolol tartrate 25 mg tablet 25 mg PO BID 30 days #60 tabs 04/20/25 Unknown Rx Allergy/AdvReac Type Severity Reaction Status Date / Time imipramine Allergy Mild Rash Verified 04/22/25 23:00 Family History Father Heart disease Mother Heart disease Hypertension Hyperlipidemia Surgical History History of elbow surgery History of cataract extraction History of hysterectomy Social History Smoking Status: Former smoker alcohol intake: current substance use type: does not use ROS ROS ED ROS Narrative see HPI EXAM Physical Exam Narrative Exam Narrative: Vital signs: Reviewed General: Alert and orientedx3. No acute distress HEENT: Head is normocephalic and atraumatic, sinuses nontender, pupils equal round and reactive. Nares are patent. Oropharynx and throat exams normal. Neck: Supple without lymphadenopathy nontender Cardiovascular: Irregularly irregular rate and rhythm, no murmurs. No rubs or gallops. Normal S1 and S2 Respiratory: Clear to auscultation bilaterally. No wheezes, rales, rhonchi Abdominal: Right lower quadrant STEPHANIE drain with serosanguineous output. The surgical site itself has no erythema, warmth, fluctuance or drainage. No signs of infection. Soft and nontender. Normal bowel sounds. No guarding or rebound. Nonsurgical abdomen Extremities: No tenderness. No bruising. Normal range of motion. Normal sensation. Skin: No rash or redness. The rest of the physical exam is unremarkable Const Vital Signs: 04/22/25 22:59 04/22/25 23:06 04/22/25 23:58 Temperature 98.2 F Temperature Source Oral Pulse Rate 163 H 88 Respiratory Rate 18 16 Respiratory Effort Normal Blood Pressure 146/79 H 136/68 H Blood Pressure Mean 101 90 Pulse Ox 99 96 Oxygen Delivery Method Room Air Room Air 04/23/25 01:00 04/23/25 02:30 Temperature 98.1 F Temperature Source Pulse Rate 82 83 Respiratory Rate 16 16 Respiratory Effort Blood Pressure 127/68 H 141/67 H Blood Pressure Mean 87 91 Pulse Ox 97 95 Oxygen Delivery Method Room Air MDM MDM MDM Narrative Medical decision making narrative: Patient is a 69-year-old female presenting to the emergency department for palpitations. Patient was seen and examined. Vitals are stable. Patient appears to be in A-fib with RVR on the monitor on evaluation. Stable blood pressure of 146/79. Patient is afebrile saturating 99% on room air. Patient did recently have surgery, we will obtain a D-dimer in addition to basic labs. EKG shows A-fib with RVR. Nonspecific ST and T wave abnormality. No ST elevation meeting STEMI criteria. Patient is having no chest pain or shortness of breath, I do not think it is necessary to obtain troponin at this time. Patient states that she was prescribed metoprolol on but has not picked it up to take this. Likely the cause of her going back into A-fib with RVR is this. CBC with no leukocytosis and chronic anemia of 11.3. BMP with no significant abnormalities. TSH and magnesium within normal limits. D-dimer of 0.72, discussed with patient and ordered CT of the chest to rule out PE. On reevaluation of the patient she has converted to normal sinus rhythm after initiation of fluids. CT of the chest with no evidence of pulmonary embolism. There is a distended thickened gallbladder with impacted gallstone in its neck that can be further evaluated with ultrasound if clinically warranted. I did discuss this with the patient, she states that she is aware that she has an impacted gallbladder with signs of inflammation and the plan was to first take care of her endometrial cancer surgery and then to proceed to the gallbladder surgery afterwards. She states that she will follow-up for this. Patient is now in normal sinus rhythm. No longer having palpitations. I gave her a dose of her metoprolol before discharge and then encouraged her to pick pulling machine tender her prescription of metoprolol and begin taking it as prescribed tomorrow. Patient agreeable to plan. Patient discharged from the Emergency Department. I do not feel that the patient's evaluation reveals any acute reason for admission at this time. I instructed them to either follow-up with their primary care physician or promptly return to the Emergency Department for reevaluation should symptoms worsen or new symptoms develop. I explained what symptoms would indicate the need to return to the emergency department. Shared decision making was used. The patient voiced understanding of the treatment plan and is agreeable with it. Clinical impression A-fib with RVR Elevated D-dimer History & Record Review Discussion w/independent historian: Patient Additional record(s) reviewed:: Prior ED visit and Prior labs Lab Data Attestation: I reviewed the patient's lab results. Labs: Laboratory Results - last 24 hr 04/22/25 23:30 WBC 10.8 RBC 3.70 L Hgb 11.3 L Hct 35.4 L MCV 95.7 MCH 30.5 MCHC 31.9 L RDW Std Deviation 48.2 H RDW Coeff of Dayron 13.7 Plt Count 261 MPV 11.5 Immature Gran % (Auto) 1.500 H Neut % (Auto) 68.1 Lymph % (Auto) 16.8 L [place] % (Auto) 10.5 H Eos % (Auto) 2.6 Baso % (Auto) 0.5 Absolute Neuts (auto) 7.4 Absolute Lymphs (auto) 1.81 Nucleated RBC % 0 D-Dimer Quant (PE/DVT) 0.72 H* Sodium 139 Potassium 4.1 Chloride 105 Carbon Dioxide 21.0 Anion Gap 13 BUN 16 Creatinine 0.67 L Estim Creat Clear Calc 66.17 Est GFR (MDRD) Non-Af 95 BUN/Creatinine Ratio 23.6 H Glucose 195 H Calcium 9.0 Magnesium 2.1 TSH 1.870 Radiography Diagnostic Testing: Clinical Impression(s) from Imaging Studies Chest X-Ray 04/22/25 23:49 IMPRESSION: NO ACUTE FINDINGS. Reading Location: [facility] Chest CTA 04/23/25 00:16 IMPRESSION: Mild cardiomegaly. No demonstrated pulmonary embolism or arterial dissection. Distended, thickened gallbladder with an impacted gallstone at its neck. This can be further evaluated by ultrasound exam if clinically warranted. Reading Location: [place] [address] Discharge Plan Triage Chief Complaint: Palpitations ED Provider: Tamika Shannon Dx/Rx/DC Orders Clinical Impression: Atrial fibrillation with RVR Instructions: A-Fib Prescriptions: No Action levothyroxine [Synthroid] 25 mcg tablet 25 mcg PO DAILY atorvastatin 80 mg tablet 80 mg PO QHS etodolac 300 mg capsule 300 mg PO BID bupropion HCl (smoking deter) 150 mg tablet extended release 12 hr 150 mg PO BID lamotrigine 200 mg tablet 200 mg PO DAILY metoprolol tartrate 25 mg tablet 25 mg PO BID 30 Days Qty: 60 0RF Primary Care Provider: LIZZIE STEPHEN Referrals: Everardo Carson MD [Med Staff - Active Staff] - 3-5 Days [facility] [STAFF PHYSICIAN] - Activity Restrictions/Additional Instructions: Please pick your metoprolol up tomorrow and take it as prescribed. Follow-up with the earring maker below as soon as possible. Your evaluation in the Emergency Department did not reveal any acute reason for admission. However, I want to emphasize that you may be early in the course of a disease process or illness even if it is not present. For this reason you should follow-up within 24 hours for reevaluation with either your primary care physician or if necessary back here in the Emergency Department. You should return to the Emergency Department immediately if your symptoms worsen or new symptoms develop. Print Language: Moldovan Disposition Disposition: Home, Self Care Discharge Date/Time: 04/23/25 02:35
[2025-04-22] MEDS: 0.9% Normal Saline (1000mL) 1,000 ML 1000 ML IV (23:49)
--- NOTE | 2025-04-22 23:49 | RAD_ITS ---
PROCEDURE: CHEST PA AND LATERAL 04/22/2025 REASON FOR EXAM: PALPITATIONS TECHNIQUE: Procedure Code: RADCXR Modality: DX Procedure: CHEST PA AND LATERAL COMPARISON: None available. FINDINGS: Hardware: None. Heart: The heart size is normal. Mediastinum: The mediastinal contour is unremarkable. Lungs: The lungs are clear. Bones: The bones are unremarkable. RAD/Chest PA and Lateral IMPRESSION: NO ACUTE FINDINGS. Reading Location: [facility]
[2025-04-22 23:58] VITALS: BP 136/68; PULSE 88; RESP 16; O2SAT 96
[2025-04-23 00:03] LABS: Hematocrit 35.4 % (37-47); Hemoglobin 11.3 g/dL (12.0-15.0); Immature Granulocytes Count 0.160 X10^3/uL (0.0-0.0); Mean Corp Hgb Conc 31.9 g/dL (32-36); Mean Corpuscular Volume 95.7 fL (81-99); Mean Platelet Vol. 11.5 fl (6.2-12.0); NRBC Flagged by Analyzer 0 % (0-5); POSITIVE COUNT YES; RBC Distribution Width CV 13.7 % (11.6-14.6); RBC Distribution Width SD 48.2 fl (35.1-43.9); Red Blood Count 3.70 M/mm3 (4.2-5.4); White Blood Count 10.8 K/mm3 (4.4-11.0)
[2025-04-23 00:10] LABS: Anion Gap 13 (5-15); BUN 16 mg/dL (4-19); BUN/Creat Ratio 23.6 RATIO (10-20); Calcium,Total 9.0 mg/dL (7.6-11.0); Carbon Dioxide 21.0 mmol/L (21.0-32.0); Chloride 105 mmol/L (98-108); Estimated Creatinine Clearance 66.17 ml/min (50-250); Glucose 195 mg/dL (70-99); Magnesium 2.1 mg/dL (1.5-2.2); Potassium 4.1 mmol/L (3.3-5.1)
[2025-04-23 00:14] LABS: D-Dimer Quantitative (DVT/PE) 0.72 FEU/ug/m (0.27-0.49)
--- OUTSIDE RECORDS SUMMARY | 2025-04-23 00:15 | XMS RPT_ITS | CCD ---
Author Organization [facility] Care Team Providers Care Director Educational Radio Name Role Phone Sonja Winchester Attending Unavailable Dr. Khoi Nguyễn Attending Provider [phone] Dr. Khoi Nguyễn Other Provider [phone] [place] Primary Care [place] Referring Provider Unavailable Brenda Wayne Unavailable [phone] Brenda Wayne Unavailable TED KANG Attending Unavailable TED KANG Referring Unavailable RIAN STEPHEN Primary Care Unavailable TED KANG Referring Unavailable AMB, DOCTOR Admitting Unavailable AMB, DOCTOR Attending Unavailable ZAFAR RIAN Primary Care Unavailable [place] [employer], [facility] Primary [facility] Pr ovider Lizzette Mcneill MD Unavailable [phone] LIZZETTE MCNEILL Referring Unavailable [facility] SOHAIL LUU Attending Unavailable LIZZETTE MCNEILL Referring Unavailable [place] Primary Care Provider [facility] Dr. Alexander Wright DO Emergency Provider [phone] LIZZETTE MCNEILL Attending Un[facility] LIZZETTE MCNEILL Attending Unavailable LIZZETTE MCNEILL Referring Unavailable [facility] LIZZETTE MCNEILL Admitting Unavailable LIZZETTE MCNEILL Attending Unavailable LIZZETTE MCNEILL Referring Unavailable [facility]a [facility] Unavaila ble ETHAN GAXIOLA Referring Unavailable Allergies Allergy Classification Reported Allergen(s) Allergy Type Date of Onset Reaction(s) Facility (3 sources) Imipramine; Translations: [IMIPRAMINE] Drug Allergy 09-25-1994 [facility] Medications Current Medications Medication Drug Class(es) Dates Sig (Normalized) Sig (Original) atorvastatin 80 mg oral tablet (9 sources) HMG-CoA Reductase Inhibitor Start: 04-24-2023 atorvastatin (Lipitor) 80 mg tablet Take 1 tablet (80 mg) by mouth. 10/10/2024 Active 12 hr buPROPion hydrochloride 150 mg extended release oral tablet (9 sources) Aminoketone Start: 08-08-2024 take 1 tablet by mouth twice daily buPROPion SR (WELLBUTRIN SR) 150 mg 12 hr tablet Take 150 mg by mouth two times a day. 08/08/2024 Active Start: 04-24-2023 take 1 tablet by daniel th twice daily, then take 1 tablet by mouth every twelve hours Bupropion Hcl (Smoking Deter) 150 mg tablet extended release 12 hr Active 150 mg PO TWICE A DAY April 24, 2023 [...] week. Active etodolac 300 mg oral capsule (4 sources) Nonsteroidal Anti-inflammatory Drug Start: 04-24-20 etodolac (LODINE) 300 mg capsule Take 300 mg by mouth. 10/10/2024 Active lamoTRIgine 200 mg oral tablet (9 sources) Mood Stabilizer, Anti-epileptic Agent Start: 04-24-20 lamoTRIgine (LAMICTAL) 200 mg tablet Take 200 mg by mouth. 08/08/2024 Active take 1 tablet by daniel th every twenty-four hours lamoTRIgine (LaMICtal XR) 200 mg tablet extended release 24hr 24 hr tablet Take by mouth. Active levothyroxine sodium 0.025 mg oral tablet (2 sources) l-Thyroxine Start: 04-24-2023 take 1 tablet by mouth once daily Levothyroxine (Synthroid) 25 mcg tablet Active 25 ug PO DAILY April 24, 2023 12:00am metoprolol tartrate 25 mg oral tablet (1 source) beta-Adrenergic Nancy Start: 04-20-2025 take 1 tablet by mouth twice daily Metoprolol Tartrate 25 mg tablet Active 25 mg PO TWICE A DAY 60 30 0 April 20, 2025 12:00am Completed/Discontinued Medications Medication Drug Class(es) Dates [...] neoplasm of endometrium] Onset: 5 02-21-2025 Chronic Cardiac dysrhythmias (2 sources) Paroxysmal atrial fibrillation; Translations: [Paroxysmal atrial fibrillation] Chronic Disorders of lipid metabolism (3 sources) Hyperlipidemia; Translations: [Hyperlipidemia, unspecified] Onset: 5 04-20-2025 Chronic Esophageal disorders (2 sources) Gastroesophageal reflux disease; Translations: [Gastro-esophageal reflux disease without esophagitis] 04-24-2023 Chronic Genitourinary symptoms and ill-defined conditions (1 source) Dysuria; Translations: [Dysuria] Onset: 3 Episodic Mood disorders (4 sources) Depressive disorder; Translations: [Depression] 05-28-2023 Chronic Comment on above: ON MED Osteoarthritis (2 sources) Osteoarthritis; Translations: [Unspecified osteoarthritis, unspecified site] 04-24-2023 [...] 5 Episodic Other inflammatory condition of skin (2 sources) Psoriasis; Translations: [Psoriasis, unspecified] 04-24-2023 Chronic Other nervous system disorders (2 sources) Carpal tunnel syndrome; Translations: [Carpal tunnel syndrome, unspecified upper limb] 04-24-2023 Chronic Other nervous system disorders (2 sources) H/O: respiratory disease; Translations: [Personal history of other diseases of the nervous system and sense organs] 04-24-2023 Episodic Other nutritional; endocrine; and metabolic disorders (2 sources) H/O: raised blood lipids; Translations: [Personal history of other endocrine, nutritional and metabolic disease] 04-24-2023 Episodic Other screening for suspected conditions (not mental disorders or infectious disease) (3 sources) Patient encounter status; Translations: [Encounter for screening for malignant neoplasm of colon] 04-24-2023 Episodic Spondylosis; intervertebral disc disorders; other back problems (2 sources) Degeneration of intervertebral disc; Translations: [Degeneration of intervertebral disc] 04-24-2023 Chronic Thyroid disorders (2 sources) Hypothyroidism; Translations: [Hypothyroidism, unspecified] 05-28-2023 Chronic Comment on above: ON MED Past or Other Problems Problem Classification Problem Date Documented Da te Episodic/Chronic Unclassified (5 sources) Onset: 02-21-2025 02-21-2025 Results Test Name Value Interpretation Reference Range Facility Absolute lymphocyte countOrd ered By: Alexander Wright on 04-20-2025 Lymphocytes Auto (Unsp spec) [#/Vol] 1.60 10*3/uL 0.83-4.51 [facility] Absolute neutrophil countOrd ered By: Alexander Wright on 04-20-2025 Neutrophils (Bld) [#/Vol] 6.1 10*3/uL 2.0-7.7 [facility] Activated partial thrombopla stin time (aPTT) in platelet poor plasma by coagulation aOrdered By: Alexander Wright on 04-20-2025 aPTT Coag (PPP) [Time] 26.1 s 24.1-36.2 [facility] Anion gap in Serum or Plasma Ordered By: Alexander Wright on 04-20-2025 Anion gap [Moles/Vol] 14 mmol/L -15 [facility] Automated lymphocyte count a s percentage of total leukocytesOrdered By: Alexander Wright on 04-20-2025 Lymphocytes/100 WBC Auto (Unsp spec) 17.6 % Low 19-41 [facility] BUN/creatinine ratioOrdered By: Alexander Wright on 04-20-2025 Urea nitrogen/Creatinine [Mass ratio] 20.1 mg/mg High 10-20 [facility] Basic metabolic 2000 panelon 04-20-2025 Anion gap [Moles/Vol] 12 mmol/L Normal 10-20 [facility] Comment on above: Order Comment: Post Op Day of Surgery at 2200 Performed By: #### 2 4321-2 #### BRIAN More ([id number]) [facility] ([facility]) [address] [place] [address] Calcium [Mass/Vol] 8.6 mg/dL Normal 8.6-10.6 [facility] Comment on above: Order Comment: Post Op Day of Surgery at 2200 Performed By: #### 2 4321-2 #### BRIAN More ([id number]) [facility] ([facility]) [address] [place] [address] Chloride [Moles/Vol] 109 mmol/L High 98-107 [facility] Comment on above: Order Comment: Post Op Day of Surgery at 2200 Performed By: #### 2 4321-2 #### BRIAN More ([id number]) [facility] ([facility]) [address] [place] [address] CO2 [Moles/Vol] 25 mmol/L Normal 21-32 [facility] Comment on above: Order Comment: Post Op Day of Surgery at 2200 Performed By: #### 2 4321-2 #### BRIAN More ([id number]) [facility] ([facility]) [address] [place] [address] Creatinine [Mass/Vol] 0.67 mg/dL Normal 0.50-1.05 [facility] Comment on above: Order Comment: Post Op Day of Surgery at 2200 Performed By: #### 2 4321-2 #### BRIAN More ([id number]) [facility] ([facility]) [address] [place] [address] Glomerular filtration rate >90 Normal >60 [facility] Comment on above: Order Comment: Post Op Day of Surgery at 2200 Result Comment: Calc ulations of estimated GFR are performed using the 2020 CKD-EPI Study Refit equation without the race variable for the IDMS-Traceable creatinine methods. https://jasn.asnjournals.org/content/early//ASN.2020 575156 Performed By: #### 2 4321-2 #### BRIAN More ([id number]) [facility] ([facility]) [address] [place] [address] Glucose [Mass/Vol] 81 mg/dL Normal 74-99 [facility] Comment on above: Order Comment: Post Op Day of Surgery at 2200 Performed By: #### 2 4321-2 #### BRIAN More ([id number]) [facility] ([facility]) [address] [place] [address] Potassium [Moles/Vol] 4.0 mmol/L Normal 3.5-5.3 [facility] Comment on above: Order Comment: Post Op Day of Surgery at 2200 Performed By: #### 2 4321-2 #### BRIAN CHAPMAN L ([id number]) [facility] ([facility]) [address] [place] [address] Sodium [Moles/Vol] 142 mmol/L Normal 136-145 [facility] Comment on above: Order Comment: Post Op Day of Surgery at 2200 Performed By: #### 2 4321-2 #### BRIAN CHAPMAN L ([id number]) [facility] ([facility]) [address] [place] [address] Urea nitrogen [Mass/Vol] 14 mg/dL Normal 6-23 [facility] Comment on above: Order Comment: Post Op Day of Surgery at 2200 Performed By: #### 2 4321-2 #### BRIAN CHAPMAN L ([id number]) [facility] ([facility]) [address] [place] [address] Basophil percentageOrdered B y: Alexander Wright on 04-20-2025 Basophils/100 WBC (Bld) 0.5 % 0-1 W [facility] CBC panel Auto (Bld)on 04-20 Erythrocyte distribution width (RBC) [Ratio] 14.0 % Normal 11.5-14.5 [facility] Comment on above: Order Comment: Post op day of surgery at 2200 Performed By: #### 5 8410-2 #### BRIAN More ([id number]) [facility] ([facility]) [address] [place] [address] Hematocrit (Bld) [Volume fraction] 31.5 % Low 36.0-46.0 [facility] Comment on above: Order Comment: Post op day of surgery at 2200 Performed By: #### 5 8410-2 #### BRIAN More ([id number]) [facility] ([facility]) [address] [place] [address] Hemoglobin (Bld) [Mass/Vol] 9.5 g/dL Low 12.0-16.0 [facility] Comment on above: Order Comment: Post op day of surgery at 2200 Performed By: #### 5 8410-2 #### BRIAN More ([id number]) [facility] ([facility]) [address] [place] [address] MCH (RBC) [Entitic mass] 30.1 pg Normal 26.0-34.0 [facility] Comment on above: Order Comment: Post op day of surgery at 2200 Performed By: #### 5 8410-2 #### BRIAN More ([id number]) [facility] ([facility]) [address] [place] [address] MCHC (RBC) [Mass/Vol] 30.2 g/dL Low 32.0-36.0 [facility] Comment on above: Order Comment: Post op day of surgery at 2200 Performed By: #### 5 8410-2 #### BRIAN More ([id number]) [facility] ([facility]) [address] [place] [address] MCV (RBC) [Entitic vol] 100 fL Normal 80-100 U [facility] Comment on above: Order Comment: Post op day of surgery at 2200 Performed By: #### 5 8410-2 #### BRIAN More ([id number]) [facility] ([facility]) [address] [place] [address] Nucleated RBC/100 WBC (Bld) [Ratio] 0.0 /100 WBCs Normal 0.0-0.0 [facility] Comment on above: Order Comment: Post op day of surgery at 2200 Performed By: #### 5 8410-2 #### BRIAN More ([id number]) [facility] ([facility]) [id number] [place] [address] Platelets (Bld) [#/Vol] 234 x10*3/uL Normal 150-450 [facility] Comment on above: Order Comment: Post op day of surgery at 2200 Performed By: #### 5 8410-2 #### BRIAN More ([id number]) [facility] ([facility]) [address] [place] [address] RBC (Bld) [#/Vol] 3.16 x10*6/uL Low 4.00-5.20 [facility] Comment on above: Order Comment: Post op day of surgery at 2200 Performed By: #### 5 8410-2 #### BRIAN More ([id number]) [facility] ([facility]) [address] [place] [address] WBC (Bld) [#/Vol] 7.6 x10*3/uL Normal 4.4-11.[address] [facility] Comment on above: Order Comment: Post op day of surgery at 2200 Performed By: #### 5 8410-2 #### BRIAN More ([id number]) [facility] ([facility]) [address] [place] [address] Carbon dioxide, total [Moles /volume] in Central venous bloodOrdered By: Alexander Wright on 04-20-2025 CO2 [Moles/Vol] 20.2 mmol/L Low 21.0-32.0 [facility] Chloride assayOrdered By: Diana Wright on 04-20-2025 Chloride [Moles/Vol] 107 mmol/L 98-[address] [facility] Eosinophil percentageOrdered By: Alexander Wright on 04-20-2025 Eosinophils/100 WBC (Bld) 3.2 % 0-5 [facility] Erythrocyte distribution wid th ratioOrdered By: Alexander Wright on 04-20-2025 Erythrocyte distribution width (RBC) [Ratio] 13.8 % 11.6-14.6 [facility] Erythrocyte distribution wid th standard deviationOrdered By: Alexander Wright on 04-20-2025 Erythrocyte distribution width (RBC) [Ratio] 49.2 fl High 35.1-43.9 [facility] Glomerular filtration rate ( GFR) estimation/1.73 sq m using serum, plasma, or whole bOrdered By: Alexander Wright on 04-20-2025 GFR/1.73 sq M.predicted among non-blacks MDRD (S/P/Bld) [Vol rate/Area] 92 mL/min/{1.73_m2} >60 [facility] Comment on above: mL/min/1.73m2 CKD-EP I Creatinine Equation (2020) Hematocrit Auto (Bld) [Volum e fraction]Ordered By: Alexander Wright on 04-20-2025 Hematocrit (Bld) [Volume fraction] 35.2 % Low 37-47 [facility] Hemoglobin measurementOrdere d By: Alexander Wright on 04-20-2025 Hemoglobin (Bld) [Mass/Vol] 11.1 g/dL Low 12.0-15.0 [facility] Immature granulocytes/100 WB C Auto (Bld)Ordered By: Alexander Wright on 04-20-2025 Immature granulocytes/100 WBC (Bld) 0.700 % 0.0-0.9 [facility] Comment on above: IG% - Immature Granu locytes (promyelocytes, myelocytes and metamyelocytes) > 1% indicates that a LEFT SHIFT is Present. International normalized rat io (INR) calculationOrdered By: Alexander Wright on 04-20-2025 INR Coag (Bld) [Relative time] 1.0 {INR} [facility] MCV (mean corpuscular volume ) determinationOrdered By: Alexander Wright on 04-20-2025 MCV (RBC) [Entitic vol] 95.9 fL 81-99 W [facility] Magnesiumon 04-20-2025 Magnesium [Mass/Vol] 2.13 mg/dL Normal 1.60-2.40 [facility] Comment on above: Performed By: #### 5 7021-8 #### BRIAN More ([id number]) [facility] ([facility]) [id number] [place] [address] Magnesium measurement (mass/ volume)Ordered By: Alexander Wright on 04-20-2025 Magnesium (Unsp spec) [Mass/Vol] 2.0 mg/dL 1.5-2.2 [facility] Mean corpuscular hemoglobin (MCH) determinationOrdered By: Alexander Wright on 04-20-2025 MCH (RBC) [Entitic mass] 30.2 pg 27.0-32.0 [facility] Mean corpuscular hemoglobin concentration (MCHC) determinationOrdered By: Alexander Wright on 04-20-2025 MCHC (RBC) [Mass/Vol] 31.5 g/dL Low 32-36 [facility] Mean platelet volume determi nationOrdered By: Alexander Wright on 04-20-2025 Platelet mean volume (Bld) [Entitic vol] 10.1 fL 6.2-12.0 [facility] Monocyte percentageOrdered B y: Alexander Wright on 04-20-2025 Monocytes/100 WBC (Bld) 11.5 % High 0-10 W [facility] Neutrophil percentageOrdered By: Alexander Wright on 04-20-2025 Neutrophils/100 WBC (Bld) 66.5 % 47-70 [facility] Nucleated red blood cell per centageOrdered By: Alexander Wright on 04-20-2025 Nucleated RBC/100 WBC (Bld) [Ratio] 0 % 0-5 [facility] Platelet countOrdered By: Diana Wright on 04-20-2025 Platelets (Bld) [#/Vol] 285 10*3/uL 150-450 [facility] Potassium measurement (mass/ volume)Ordered By: Alexander Wright on 04-20-2025 Potassium (Unsp spec) [Mass/Vol] 3.8 mmol/L 3.3-5.1 [facility] Comment on above: Hemolysis present, R esults could be affected. Prothrombin timeOrdered By: Alexander Wright on 04-20-2025 PT Coag (PPP) [Time] 13.5 s 11.7-14.[address] [facility] RBC Auto (Bld) [#/Vol]Ordere d By: Alexander Wright on 04-20-2025 RBC (Bld) [#/Vol] 3.67 10*6/uL Low 4.2-5.4 [facility] Serum creatinine measurement (mass/volume)Ordered By: Alexander Wright on 04-20-2025 Creatinine [Mass/Vol] 0.71 mg/dL 0.70-1.20 [facility] Serum glucose measurement (m ass/volume)Ordered By: Alexander Wright on 04-20-2025 Glucose [Mass/Vol] 162 mg/dL High 70-99 [facility] Serum or plasma calcium jason urement (mass/volume)Ordered By: Alexander Wright on 04-20-2025 Calcium [Mass/Vol] 9.2 mg/dL 7.6-11.0 [facility] Serum or plasma urea nitroge n measurement (mass/volume)Ordered By: Alexander Wright on 04-20-2025 Urea nitrogen [Mass/Vol] 14 mg/dL 4-19 [facility] Sodium levelOrdered By: Burton Wright on 04-20-2025 Sodium [Moles/Vol] 141 mmol/L 133-145 [facility] TSH DL <= 0.005 mIU/L QnOrde red By: Alexander Wright on 04-20-2025 TSH Qn 1.370 uIU/mL 0.300-4.200 [facility] White blood cell (WBC) count Ordered By: Alexander Wright on 04-20-2025 WBC (Bld) [#/Vol] 9.1 10*3/uL 4.4-11.0 [facility] Basic metabolic 2000 panelon 04-19-2025 Anion gap [Moles/Vol] 14 mmol/L Normal 10-20 [facility] Comment on above: Order Comment: Post Op Day of Surgery at 2200 Performed By: #### 2 4321-2 #### BRIAN CHAPMAN L ([id number]) [facility] ([facility]) [address] [place] [address] Calcium [Mass/Vol] 8.8 mg/dL Normal 8.6-10.6 [facility] Comment on above: Order Comment: Post Op Day of Surgery at 2200 Performed By: #### 2 4321-2 #### BRIAN CHAPMAN L ([id number]) [facility] ([facility]) [address] [place] [address] Chloride [Moles/Vol] 107 mmol/L Normal 98-107 [facility] Comment on above: Order Comment: Post Op Day of Surgery at 2200 Performed By: #### 2 4321-2 #### BRIAN CHAPMAN L ([id number]) [facility] ([facility]) [address] [place] [address] CO2 [Moles/Vol] 23 mmol/L Normal 21-32 [facility] Comment on above: Order Comment: Post Op Day of Surgery at 2200 Performed By: #### 2 4321-2 #### BRIAN CHAPMAN L ([id number]) [facility] ([facility]) [address] [place] [address] Creatinine [Mass/Vol] 0.63 mg/dL Normal 0.50-1.05 [facility] Comment on above: Order Comment: Post Op Day of Surgery at 2200 Performed By: #### 2 4321-2 #### BRIAN CHAPMAN L ([id number]) [facility] ([facility]) [address] [place] [address] Glomerular filtration rate >90 Normal >60 [facility] Comment on above: Order Comment: Post Op Day of Surgery at 2200 Result Comment: Calc ulations of estimated GFR are performed using the 2020 CKD-EPI Study Refit equation without the race variable for the IDMS-Traceable creatinine methods. https://jasn.asnjournals.org/content/early//ASN.2020 452249 Performed By: #### 2 4321-2 #### BRIAN More ([id number]) [facility] ([facility]) [address] [place] [address]23 Glucose [Mass/Vol] 108 mg/dL High 74-99 [facility] Comment on above: Order Comment: Post Op Day of Surgery at 2200 Performed By: #### 2 4321-2 #### BRIAN More ([id number]) [facility] ([facility]) [address] [place] [address] Potassium [Moles/Vol] 4.2 mmol/L Normal 3.5-5.3 [facility] Comment on above: Order Comment: Post Op Day of Surgery at 2200 Performed By: #### 2 4321-2 #### BRIAN More ([id number]) [facility] ([facility]) [address] [place] [address] Sodium [Moles/Vol] 140 mmol/L Normal 136-145 [facility] Comment on above: Order Comment: Post Op Day of Surgery at 2200 Performed By: #### 2 4321-2 #### BRIAN More ([id number]) [facility] ([facility]) [address] [place] [address]1285 Urea nitrogen [Mass/Vol] 16 mg/dL Normal 6-23 [facility] Comment on above: Order Comment: Post Op Day of Surgery at 2200 Performed By: #### 2 4321-2 #### BRIAN More ([id number]) [facility] ([facility]) [address] [place] [address] CBC panel Auto (Bld)on 04-19 Erythrocyte distribution width (RBC) [Ratio] 13.4 % Normal 11.5-14.5 [facility] Comment on above: Order Comment: Post op day of surgery at 2200 Performed By: #### 5 8410-2 #### BRIAN More ([id number]) [facility] ([facility]) [address] [place] [address] Hematocrit (Bld) [Volume fraction] 32.3 % Low 36.0-46.0 [facility] Comment on above: Order Comment: Post op day of surgery at 2200 Performed By: #### 5 8410-2 #### BRIAN More ([id number]) [facility] ([facility]) [address] [place] [address]1351 Hemoglobin (Bld) [Mass/Vol] 9.6 g/dL Low 12.0-16.0 [facility] Comment on above: Order Comment: Post op day of surgery at 2200 Performed By: #### 5 8410-2 #### BRIAN More ([id number]) [facility] ([facility]) [address] [place] [address] 36041 MCH (RBC) [Entitic mass] 30.2 pg Normal 26.0-34.0 [facility] Comment on above: Order Comment: Post op day of surgery at 2200 Performed By: #### 5 8410-2 #### BRIAN More ([id number]) [facility] ([facility]) [address] [place] [address] 10773 MCHC (RBC) [Mass/Vol] 29.7 g/dL Low 32.0-36.0 [facility] Comment on above: Order Comment: Post op day of surgery at 2200 Performed By: #### 5 8410-2 #### BRIAN More ([id number]) [facility] ([facility]) [address] [place] [address] 86019 MCV (RBC) [Entitic vol] 102 fL High 80-100 U [facility] Comment on above: Order Comment: Post op day of surgery at 2200 Performed By: #### 5 8410-2 #### BRIAN More ([id number]) [facility] ([facility]) [address] [place] [address]109 Nucleated RBC/100 WBC (Bld) [Ratio] 0.0 /100 WBCs Normal 0.0-0.0 [facility] Comment on above: Order Comment: Post op day of surgery at 2200 Performed By: #### 5 8410-2 #### RBIAN More ([id number]) [facility] ([facility]) [id number] [place] [address]78 Platelets (Bld) [#/Vol] 241 x10*3/uL Normal 150-450 [facility] Comment on above: Order Comment: Post op day of surgery at 2200 Performed By: #### 5 8410-2 #### BRIAN More ([id number]) [facility] ([facility]) [address] [place] [address] RBC (Bld) [#/Vol] 3.18 x10*6/uL Low 4.00-5.20 [facility] [facility] Comment on above: Order Comment: Post op day of surgery at 2200 Performed By: #### 5 8410-2 #### BRIAN More ([id number]) [facility] ([facility]) [address] [place] [address] 16954 WBC (Bld) [#/Vol] 11.5 x10*3/uL High 4.4-11.3 [facility] Comment on above: Order Comment: Post op day of surgery at 2200 Performed By: #### 5 8410-2 #### BRIAN More ([id number]) [facility] ([facility]) [address] [place] [address] 06303 Magnesiumon 04-19-2025 Magnesium [Mass/Vol] 2.20 mg/dL Normal 1.60-2.40 [facility] Comment on above: Performed By: #### 1 9123-9 #### BRIAN More ([id number]) [facility] ([facility]) [address] [place] [address] 07883 Basic metabolic 2000 panelon 04-14-2025 Anion gap [Moles/Vol] 15 mmol/L Normal 10-20 [facility] Comment on above: Performed By: #### 2 4321-2 #### BRIAN More ([id number]) [facility] ([facility]) [address] [place] [address] Calcium [Mass/Vol] 9.4 mg/dL Normal 8.6-10.6 [facility] Comment on above: Performed By: #### 2 4321-2 #### BRIAN More ([id number]) [facility] ([facility]) [address] [place] [address] Chloride [Moles/Vol] 105 mmol/L Normal 98-107 [facility] Comment on above: Performed By: #### 2 4321-2 #### BRIAN CHAPMAN L ([id number]) [facility] ([facility]) [address] [place] [address] CO2 [Moles/Vol] 24 mmol/L Normal 21-32 [facility] Comment on above: Performed By: #### 2 4321-2 #### BRIAN More ([id number]) [facility] ([facility]) [address] [place] [address] Creatinine [Mass/Vol] 0.52 mg/dL Normal 0.50-1.05 [facility] Comment on above: Performed By: #### 2 4321-2 #### BRIAN CHAPMAN L ([id number]) [facility] ([facility]) [address] [place] [address] Glomerular filtration rate >90 Normal >60 [facility] Comment on above: Result Comment: Calc ulations of estimated GFR are performed using the 2020 CKD-EPI Study Refit equation without the race variable for the IDMS-Traceable creatinine methods. https://jasn.asnjournals.org/content//ASN.2020 056784 Performed By: #### 2 4321-2 #### BRIAN CHAPMAN L ([id number]) [facility] ([facility]) [address] [place] [address] Glucose [Mass/Vol] 84 mg/dL Normal 74-99 [facility] Comment on above: Performed By: #### 2 4321-2 #### BRIAN More ([id number]) [facility] ([facility]) [address] [place] [address] 21744 Potassium [Moles/Vol] 4.3 mmol/L Normal 3.5-5.3 [facility] Comment on above: Performed By: #### 2 4321-2 #### BRIAN More ([id number]) [facility] ([facility]) [address] [place] [address] 69151 Sodium [Moles/Vol] 140 mmol/L Normal 136-145 [facility] Comment on above: Performed By: #### 2 4321-2 #### BRIAN More ([id number]) [facility] ([facility]) [address] [place] [address] 70383 Urea nitrogen [Mass/Vol] 14 mg/dL Normal 6-23 [facility] Comment on above: Performed By: #### 2 432-2 #### BRIAN More ([id number]) [facility] ([facility]) [address] [place] [address] 95377 Blood type and Indirect anti body screen panel (Bld)on 04-14-2025 ABO group Nom (Bld) A Normal [facility] Comment on above: Performed By: #### 3 4532-2 #### BRIAN More ([id number]) [facility] ([facility]) [address] [place] [address] 44103 Blood group antibody screen Ql Negative [facility] Comment on above: Performed By: #### 3 4532-2 #### BRINA More ([id number]) [facility] ([facility]) [address] [place] [address] 95727 D Ag Ql (Bld) Positive [facility] Comment on above: Performed By: #### 3 4532-2 #### BRIAN More (69902) [facility] ([facility]) [address] [place] [address] 68172 CBC W Auto Differential pane l (Bld)on 04-14-2025 Basophils (Bld) [#/Vol] 0.03 x10*3/uL Normal 0.00-0.10 [facility] Comment on above: Performed By: #### 5 7021-8 #### BRIAN More (55060) [facility] ([facility]) [address] [place] [address] 28115 Basophils/100 WBC (Bld) 0.3 % Normal 0.0-2.0 [facility] Comment on above: Performed By: #### 5 7021-8 #### BRIAN More ([id number]) [facility] ([facility]) [address] [place] [address] 32308 Eosinophils (Bld) [#/Vol] 0.17 x10*3/uL Normal 0.00-0.70 [facility] Comment on above: Performed By: #### 5 7021-8 #### BRIAN More (49878) [facility] ([facility]) [address] [place] [address] 74607 Eosinophils/100 WBC (Bld) 1.9 % Normal 0.0-6.0 [facility] Comment on above: Performed By: #### 5 7021-8 #### BRIAN More ([id number]) [facility] ([facility]) [address] [place] [address] 32453 Erythrocyte distribution width (RBC) [Ratio] 13.9 % Normal 11.5-14.5 [facility] Comment on above: Performed By: #### 5 7021-8 #### BRIAN More (70904) [facility] ([facility]) [address] [place] [address] 84947 Hematocrit (Bld) [Volume fraction] 37.3 % Normal 36.0-46.0 [facility] Comment on above: Performed By: #### 5 7021-8 #### BRIAN More (65583) [facility] ([facility]) [address] [place] [address] 89799 Hemoglobin (Bld) [Mass/Vol] 11.5 g/dL Low 12.0-16.0 [facility] Comment on above: Performed By: #### 5 7021-8 #### BRIAN More (40658) [facility] ([facility]) [address] [place] [address] 35308 Immature granulocytes (Bld) [#/Vol] 0.04 x10*3/uL Normal 0.00-0.70 [facility] Comment on above: Performed By: #### 5 7021-8 #### BRIAN More ([id number]) [facility] ([facility]) [address] [place] [address] 15984 Immature granulocytes/100 WBC (Bld) 0.5 % Normal 0.0-0.9 [facility] Comment on above: Result Comment: Kitty ture Granulocyte Count (IG) includes promyelocytes, myelocytes and metamyelocytes but does not include bands. Percent differential counts (%) should be interpreted in the context of the absolute cell counts (cells/UL). Performed By: #### 5 7021-8 #### BRIAN More ([id number]) [facility] ([facility]) [address] [place] [address] 70072 Lymphocytes (Bld) [#/Vol] 1.32 x10*3/uL Normal 1.20-4.80 [facility] Comment on above: Performed By: #### 5 7021-8 #### BRIAN More ([id number]) [facility] ([facility]) [address] [place] [address] 36161 Lymphocytes/100 WBC (Bld) 15.0 % Normal 13.0-44.0 [facility] Comment on above: Performed By: #### 5 7021-8 #### BRIAN More (69147) [facility] ([facility]) [address] [place] [address] 75961 MCH (RBC) [Entitic mass] 30.2 pg Normal 26.0-34.0 [facility] Comment on above: Performed By: #### 5 7021-8 #### BRIAN More (09105) [facility] ([facility]) [address] [place] [address] MCHC (RBC) [Mass/Vol] 30.8 g/dL Low 32.0-36.0 [facility] Comment on above: Performed By: #### 5 7021-8 #### BRIAN More (15506) [facility] ([facility]) [address] [place] [address] MCV (RBC) [Entitic vol] 98 fL Normal 80-100 U [facility] Comment on above: Performed By: #### 5 7021-8 #### BRIAN More (43229) [facility] ([facility]) [address] [place] [address] 46404 Monocytes (Bld) [#/Vol] 0.90 x10*3/uL Normal 0.10-1.00 [facility] Comment on above: Performed By: #### 5 7021-8 #### BRIAN More (88450) [facility] ([facility]) [address] [place] [address] 58622 Monocytes/100 WBC (Bld) 10.3 % Normal 2.0-10.0 U [facility] Comment on above: Performed By: #### 5 7021-8 #### BRIAN More (97284) [facility] ([facility]) [address] [place] [address] 59741 Neutrophils (Bld) [#/Vol] 6.32 x10*3/uL Normal 1.20-7.70 [facility] Comment on above: Result Comment: Perc ent differential counts (%) should be interpreted in the context of the absolute cell counts (cells/uL). Performed By: #### 5 7021-8 #### BRIAN More (57015) [facility] ([facility]) [address] [place] [address] Neutrophils/100 WBC (Bld) 72.0 % Normal 40.0-80.0 [facility] Comment on above: Performed By: #### 5 7021-8 #### BRIAN More (88674) [facility] ([facility]) [address] [place] [address] Nucleated RBC/100 WBC (Bld) [Ratio] 0.0 /100 WBCs Normal 0.0-0.0 [facility] Comment on above: Performed By: #### 5 7021-8 #### BRIAN CHAPMAN L ([id number]) [facility] ([facility]) [address] [place] [address] 63738 Platelets (Bld) [#/Vol] 292 x10*3/uL Normal 150-450 [facility] Comment on above: Performed By: #### 5 7021-8 #### BRIAN More (44174) [facility] ([facility]) [address] [place] [address] 48754 RBC (Bld) [#/Vol] 3.81 x10*6/uL Low 4.00-5.20 [facility] Comment on above: Performed By: #### 5 7021-8 #### BRIAN More (89154) [facility] ([facility]) [address] [place] [address] 09033 WBC (Bld) [#/Vol] 8.8 x10*3/uL Normal 4.4-11.[address] [facility] Comment on above: Performed By: #### 5 7021-8 #### BRIAN More (48574) [facility] ([facility]) [address] [place] [address] 50757 ECG 12-LEADon 04-14-2025 ECG 12-LEAD Ventricular Rate 66 Atrial Rate 66 P-R Interval 186 QRS Duration 88 Q-T Interval 400 QTC Calculation(Bazett) 419 P Fairplay 59 R Fairplay 77 T Fairplay 57 QRS Count 11 Q Onset 220 P Onset 127 P Offset 190 T Offset 420 QTC Fredericia 413 Diagnosis Normal sinus rhythm Low voltage QRS Borderline ECG When compared with ECG of 27-NOV-2021 10:05, No significant change was found Confirmed by Angel Riggins ([id number]) on 04/15/2025 9:16:25 PM Normal [facility] Staphylococcus aureus.methic illin resistant isolateon 04-14-2025 MRSA isol Org specific cx Ql (Nose) Test: Staphylococcus aureus/MRSA colonization, Culture Specimen Source: Anterior Nares Specimen Type: Swab Specimen Date: 04/14/20251106 Result Date: 04/15/2025 152 Result Status: Final result Abnormal: No Resulting Lab: [facility] [address] [place] [address] CULTURE No Staphylococcus aureus isolated Normal [facility] Comment on above: Performed By: #### 5 2969-3 #### BRIAN More (45298) [facility] ([facility]) [address] [place] [address] TSH WITH REFLEX TO FREE T4 I F ABNORMALon 04-14-2025 TSH Qn 1.65 m[IU]/L Normal 0.44-3.98 [facility] Comment on above: Order Comment: TSH t esting is performed using different testing methodology at [facility] than at other [facility]. Direct result comparisons should only be made within the same method. Performed By: #### T HYDS #### BRIAN More ([id number]) [facility] ([facility]) [address] [place] [address] FDG ONCOLOGYon NM PET [...] endometrial carcinoma metastases. COMPARISON: None. ACCESSION NUMBER(S): [id number] ORDERING CLINICIAN: LIZZETTE MCNEILL TECHNIQUE: DIVISION OF [...] CODING: Subsequent Treatment Strategy (PS) CALIBRATION: Dose Sggcunegi-mj-Szgb Interval (mins): 63 min Mediastinal bloodpool SUV [...] a central photopenic area, likely sales representative publications of necrosis. Status post FELICIA/BSO with no [...] Morrow MD. This study was interpreted at [place], [place]. Signed by: James Bonilla 03/10/2025 2:19 PM Dictation workstation: [id number] Normal [facility] PT Guidance for radiation tr eatment of [...] Morrow MD. This study was interpreted at [facility], [place], [place]. Signed by: James Bonilla 03/10/2025 2:19 PM Dictation workstation: [id number] [facility] Interpreted By: James Bonilla, and Cristhian Charles STUDY: NM PET CT FDG ONCOLOGY; 03/10/2025 11:44 am INDICATION: Signs/Symptoms:recurren t endometrial cancer. Per EMR, 69-year-old female with history of endometrial cancer status post total abdominal hysterectomy with bilateral salpingo-oophorectomy, and sentinel pelvic lymph node excision. Now presenting with an abdominal wall mass lesion, biopsy-proven as endometrial carcinoma metastases. COMPARISON: None. ACCESSION NUMBER(S): [id number] ORDERING CLINICIAN: LIZZETTE MCNEILL TECHNIQUE: DIVISION OF [...] CODING: Subsequent Treatment Strategy (PS) CALIBRATION: Dose Qgxgialzd-xi-Lvfa Interval (mins): 63 min Mediastinal bloodpool SUV [...] a central photopenic area, likely sales representative publications of necrosis. Status post FELICIA/BSO with no [...] joints. Likely secondary to degenerative joint disease. [facility] James Bonilla MD - 03/10/2025 Interpreted [...] endometrial carcinoma metastases. COMPARISON: None. ACCESSION NUMBER(S): [id number] ORDERING CLINICIAN: LIZZETTE MCNEILL TECHNIQUE: DIVISION OF [...] CODING: Subsequent Treatment Strategy (PS) CALIBRATION: Dose Eqiqbsctu-zy-Cuob Interval (mins): 63 min Mediastinal bloodpool SUV [...] a central photopenic area, likely sales representative publications of necrosis. Status post FELICIA/BSO with no [...] Morrow MD. This study was interpreted at [place], [place]. Signed by: James Bonilla 03/10/2025 2:19 PM Dictation workstation: [id number] [facility] Work Phone: Radiology Study observation (narrative) [facility] Work Phone: PT Guidance for radiation tr eatment of Unspecified body regionOrdered By: James Bonilla on 03-10-2025 [facility] Work Phone: BRIEF OP NOTon 01-03-2025 BRIEF OP NOT HNO ID: [id number] Author: ELDER MALLORY MD Service: Radiology Author Type: Physician Type: Brief Op Note Filed: 01/03/2025 14:21 Note Text: BRIEF OPERATIVE / PROCEDURE NOTE LOG ID: [id number] SURGERY/PROCEDURE DATE: 01/03/2025 INCISION/PROCEDURE START TIME: 12:27 PM INCISION CLOSE/PROCEDURE END TIME: 12:38 PM SURGEON(S)/PROCEDURALIS T(S) AND HAND ICER(S): Surgeons and Role: * Enzo Herron MD [...] January 03, 2025 TIME: 2:[address] [facility] HISTORY PHYSICALon HISTORY PHYSICAL HNO ID: [id number] Author: ELDER MALLORY MD Service: Radiology Author [...] January 03, 2025 TIME: 10:[address] [facility] MISMATCH REPAIR PROTEINS BY IHCon 01-03-2025 AP BIOMARKER DISCLAIMER Normal [facility] Comment on above: Order Comment: Speci men Type: TISSUE SPECIMEN Ordering Facility: [facility] Address: [address] [place] [address] Result Comment: Feroz gallego Developed Test (LDT) Disclaimer: Performance characteristics of immunohistochemical, immunofluorescent, and chromogenic in-situ hybridization tests have been determined by the performing laboratory within [facility]'s [facility] Pathology and Laboratory Medicine Department ([facility], [facility], [facility], [facility], [facility], [facility], or [facility]) in a manner consistent with CLIA requirements. One or more of these tests may not have been cleared or approved by the FDA. RT-PLM is regulated under CLIA as qualified to perform high-complexity testing. These tests are used for clinical purposes. These should not be regarded as investigational or for research. Positive and negative controls stain appropriately. Performed By: #### L [id number] #### [facility] CLIA [id number] [address] [place] [address] [place] AP BLOCK ID A[address] [facility] Comment on above: Order Comment: Speci men Type: TISSUE SPECIMEN Ordering Facility: [facility] Address: [address] [place] [address] Performed By: #### L [id number] #### [facility] CLIA [id number] [address] [place] [address] [place] BIOMARKER INTERPRETATION COMMENT AND REFERENCE RANGE Normal [facility] Comment on above: Order Comment: Cookie augustin Type: TISSUE SPECIMEN Ordering Facility: [facility] Address: [address] [place] [address] Result Comment: Immu nohistochemical stains for mismatch [...] patients with metastatic carcinoma, Chinyere et al ([facility] 2015;372:6858-75) reported that clinical benefit of pembrolizumab, an [...] questions about this result, please call the [facility] for Personalized [facility] at [phone]. Performed By: #### L [id number] #### [facility] CLIA [id number] [address] [place] [address] OF [facility] BIOMARKER METHOD Immunohistochemistry was performed on formalin-fixed paraffin-embedded tissue using the FDA-approved MMR IHC Panel with the following clones: MLH1 (clone M1 mouse monoclonal); PMS2 (A16-4 mouse monoclonal); MSH2 ([id number] mouse monoclonal); MSH6 (SP93 rabbit monoclonal). The OptiView DAB IHC Detection Kit is used with MLH1, MSH2, and MSH6, and the OptiView DAB IHC Detection Kit with OptiView Amplification Kit is used for PMS2 detection. [[employer], [place]] Normal [facility] Comment on above: Order Comment: Speci men Type: TISSUE SPECIMEN Ordering Facility: [facility] Address: [address] [place] [address] Performed By: #### L [id number] #### [facility] CLIA [id number] [address] [place] [address] OF [facility] CASE NUMBER [id number] Normal [facility] Comment on above: Order Comment: Speci men Type: TISSUE SPECIMEN Ordering Facility: [facility] Address: [address] [place] [address] Performed By: #### L [id number] #### [facility] CLIA [id number] [address] [place] [address] [place] [address] [place] FINAL PERFORMING LAB Normal [facility] Comment on above: Order Comment: Speci men Type: TISSUE SPECIMEN Ordering Facility: [facility] Address: [address] [place] [address] Result Comment: Diag nostic interpretation performed at: [facility], [address] [place] [address] [place] [address] CLIA# [id number] Pigment Pusher: Jigar Asencio MD Electronically signed out by: Bindu Abrams MD Performed By: #### L [id number] #### [facility] CLIA [id number] [address] [place] [address] [place] Result Comment: Diag nostic interpretation performed at: [facility], [address] [place] [address] [place] [address] CLIA# [id number] Pigment Pusher: Jigar Asencio MD Performed By: #### 6 6121-5 #### [facility] CLIA [id number] [address] [place] [address] [place] FIXATIVE Other Normal [facility] Comment on above: Order Comment: Speci men Type: TISSUE SPECIMEN Ordering Facility: [facility] Address: [address] [place] [address] Result Comment: Form david after decalcification in EDTA Performed By: #### L [id number] #### [facility] CLIA [id number] [address] [place] [address] [place] MLH1 IMMUNOHISTOCHEMICAL RESULTS Loss of Nuclear Expression Abnormal [facility] Comment on above: Order Comment: Speci men Type: TISSUE SPECIMEN Ordering Facility: [facility] Address: [address] [place] [address] Performed By: #### L [id number] #### [facility] CLIA [id number] [address] [place] [address] [place] MLH1 PROMOTER METHYLATION ASSAY Yes, Reported Separately Normal [facility] Comment on above: Order Comment: Speci men Type: TISSUE SPECIMEN Ordering Facility: [facility] Address: [address] [id number] Performed By: #### L [id number] #### [facility] CLIA [id number] [address] [id number] [place] MMR INTERPRETATION Deficient Mismatch Repair (dMMR) Abnormal [facility] Comment on above: Order Comment: Speci men Type: TISSUE SPECIMEN Ordering Facility: [facility] Address: [address] [place], [place] [address] Performed By: #### L [id number] #### [facility] CLIA [id number] [address] [place], [place] [address] [place] MSH2 IMMUNOHISTOCHEMICAL RESULTS Normal/Intact Nuclear Expression Normal [facility] Comment on above: Order Comment: Speci men Type: TISSUE SPECIMEN Ordering Facility: [facility] Address: [address] [place], [place] [address] Performed By: #### L [id number] #### [facility] CLIA [id number] [address] [place] [address] [place] MSH6 IMMUNOHISTOCHEMICAL RESULTS Normal/Intact Nuclear Expression Normal [facility] Comment on above: Order Comment: Speci men Type: TISSUE SPECIMEN Ordering Facility: [facility] Address: [address] [id number] Performed By: #### L [id number] #### [facility] CLIA [id number] [address] [address] [place] PMS2 IMMUNOHISTOCHEMICAL RESULTS Loss of Nuclear Expression Abnormal [facility] Comment on above: Order Comment: Speci men Type: TISSUE SPECIMEN Ordering Facility: [facility] Address: [address] [id number] Performed By: #### L [id number] #### [facility] CLIA [id number] [address] [place], [place] [address] [place] [facility] TUMOR TYPE MMR Metastatic Uterine Endometrial Adenocarcinoma Normal [facility] Comment on above: Order Comment: Speci men Type: TISSUE SPECIMEN Ordering Facility: [facility] Address: [address] [place] [address] Performed By: #### L [id number] #### [facility] CLIA [id number] [address] [place] [address] MLH1 PROMOTER HYPERMETHYLATI ONon 01-03-2025 MLH1 PROMOTER HYPERMETHYLATION Normal [facility] Comment on above: Order Comment: Speci men Type: TISSUE SPECIMEN Ordering Facility: [facility] Address: [address] [place] [address] Result Comment: MLH1 Promoter Hypermethylation Laboratory Accession Number: [id number] Case #: [id number] Block #: A1 % Tumor: 80 MLH1 [...] region encompassing -209bp to -181bp from the animal care attendant start site was analyzed by pyrosequencing of the amplicons ([employer] Q48 Autoprep Instrument). References: 1) Janel , et al. Utility of MLH1 methylation analysis in the clinical evaluation of Wagner Syndrome in women with endometrial cancer. Curr Pharm Carlos. 2014;20(11):1655-63. 2) Giancarlo Fatima, et al. Methylation of CpG in a [...] Acad Sci U S A. 1998 Jan 16;95(12):6870-5. 5) Jett Cronin, et al. Tumour MLH1 promoter region methylation testing is an effective prescreen for Wagner Syndrome (HNPCC). J Med Elizabeth. 2014 Jul;51(12):789-96. 6) Mack More, et al. Methylation analysis of MLH1 improves the selection of patients for genetic testing in Wagner syndrome. J Molec Diagn. 2010 Feb;12(4498-504. Disclaimer: This test was developed and its performance characteristics determined by [facility]'s Pathology and Laboratory Medicine Department. It has not been cleared or approved by the FDA. [facility]'s Pathology and Laboratory Medicine Department is regulated under CLIA as certified to perform high-complexity testing. This test is used for clinical purposes. It should not be regarded as investigational or for research. Test performed at [facility], [address] [place] [address]. CLIA Number: [id number] Interpretation performed by Radha Reeves MD, PhD Performed By: #### P OLE #### [facility] CLIA [id number] [address] [place], [place] [address] [address] [place] NURSING PROGon 01-03-2025 NURSING PROG HNO ID: [id number] Author: SARA OCHOA RN Service: ? Author Type: Registered Nurse Type: Nursing Progress Note Filed: 01/04/2025 08:18 Note Text: Completed post procedure phone call. Keya is feeling well and has returned to her baseline diet and activity. Keya denies questions or concerns related to her biopsy appointment on 01/03/25 and had no surgical site concerns. Normal [facility] NURSING PROG HNO ID: [id number] Author: YOLY BERNSTEIN, ZAHRA Service: Radiology Author [...] Signed By: Yoly Bernstein RN In Department: [facility] Time spent on patient education: [address] [facility] POLE PYROSEQUENCINGon 2024 POLE PYROSEQUENCING RESULT Normal [facility] Comment on above: Order Comment: Speci men Type: TISSUE SPECIMEN Ordering Facility: [facility] Address: [address] [place] [address] Result Comment: POLE Pyrosequencing Laboratory Accession Number: [id number] Case #: [id number] Part ID: N/A Sample Type: FFPET % [...] by pyrosequencing of the amplicons using the OneSpot instrument (Qiagen, Christopher, please see Evaluated POLE [...] mutations in cancer. Maeve Rev Cancer. 2016 Sep;16(2):71-81. 2) Tonio K, et al. Molecular profiling and sequential somatic mutation shift in hypermutator tumours harbouring POLE mutations. Sci Rep. 2018 Jan 7;8(1):8700. 3) Yemi D, et al. Somatic POLE exonuclease domain mutations are early events in sporadic endometrial and colorectal carcinogenesis, determining m48/m60 tank driver mutational landscape, clonal neoantigen burden and [...] Mismatch Repair Status. Mol Cell. 202;78(6). 6) Jett-Db A, et al. Interpretation of somatic POLE mutations in endometrial carcinoma. J Pathol. 202;250(3):323-335. 7) Elvira BRYANT et al. POLE/POLD1 mutation in non-exonuclease domain matter (more content not included)... Performed By: #### P OLE #### [facility] [id number] [address] [place] [address] [place] Pathology biopsy report King (Tiss)on 01-03-[address] [facility] Comment on above: Order Comment: Speci men Type: TISSUE SPECIMEN Ordering Facility: [facility] Address: [address] [place] [address] Result Comment: Feroz gallego Developed Test (LDT) Disclaimer: Performance characteristics of immunohistochemical, immunofluorescent, and chromogenic in-situ hybridization tests have been determined by the performing laboratory within [facility]'s [facility] Pathology and Laboratory Medicine Department ([facility], [facility], [facility], [facility], [facility], [facility], or [facility]) in a manner consistent with CLIA requirements. One or more of these tests may not have been cleared or approved by the FDA. [facility] is regulated under CLIA as qualified to perform high-complexity testing. These tests are used for clinical purposes. These should not be regarded as investigational or for research. Positive and negative controls stain appropriately. Performed By: #### 6 6121-5 #### [facility] CLIA [id number] [address] [place] [address] [place] CASE REPORT Normal [facility] Comment on above: Order Comment: Speci men Type: TISSUE SPECIMEN Ordering Facility: [facility] Address: [address] [place] [address] Result Comment: Surg ica Pathology Report Case: [id number] Authorizing Provider: Enzo Herron MD Collected: 01/03/2025 12:30 PM Ordering Location: [place] [address] Received: 01/03/2025 03:36 PM Pathologist: Bindu Abrams MD Specimen: Bone and Soft Tissue, FORMALIN@[email or web address],RIGHTAbdWallSoftTissueMassBx Performed By: #### 6 6121-5 #### [facility] CLIA [id number] [address] [place] [address] [place] CLINICAL HISTORY 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 Comment on above: Order Comment: Speci men Type: TISSUE SPECIMEN Ordering Facility: [facility] Address: [address] [place] [address] Performed By: #### 6 6121-5 #### [facility] CLIA [id number] [address] [place] [address] [place] DIAGNOSIS COMMENT Normal [facility] Comment on above: Order Comment: Cookie augustin Type: TISSUE SPECIMEN Ordering Facility: [facility] Address: [address] [place] [address] Result Comment: H&E sections show a glandular [...] report. Performed By: #### 6 6121-5 #### [facility] CLIA [id number] [address] [place] [address] [place] FINAL DIAGNOSIS Normal [facility] Comment on above: Order Comment: Cookie augustin Type: TISSUE SPECIMEN Ordering Facility: [facility] Address: [address] [place] [address] Result Comment: A. 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 B one and Soft Tissue Received in formalin labeled bone and soft tissue are multiple fragments of valdovinos-white hemorrhagic soft tissue and bone aggregating to 3.0 x 0.8 x 0.2 cm. Submitted in toto in cassette A1 following decalcification in EDTA. Gross [place] [address] MSL/PEDRO 01/03/25 4:03 PM\ Performed By: #### 6 6121-5 #### [facility] IA [id number] [address] [place] [address] OF [place] US BIOPSY SOFT TISS MASS/MUS Lee 01-03-2025 US BIOPSY SOFT TISS MASS/MUSCLE * * *Final Report* * * DATE OF EXAM: Jan 03 2025 2:55PM [facility] 1068 - US BIOPSY SOFT TISS MASS/MUSCLE [...] with administration of agent, ends when continuous zxzm-au-[id number] time ends): 14 minutes. f) Patient monitoring: [...] DESCRIBED. Attending Radiologist: Dr. Enzo Herron MD Senior Actuarial Analyst: Elder Mallory MD The procedure was performed by the gift shop assistant, and the attending radiologist personally supervised the entire procedure. Administrative Appeals Tribunal Member: PSCDavid Transcribe Date/Time: Jan 03 2025 3:57P Dictated by : ELDER MALLORY MD This examination was interpreted and the report reviewed and electronically signed by: ENZO HERRON MD on Jan 03 2025 4:22PM EST [id number] [facility] NURSING PROGon 12-27-2024 NURSING PROG HNO ID: [id number] Author: SARA DOUGHERTY LPN Service: ? Author Type: LICENSED NURSE Type: Nursing Progress Note Filed: 12/27/2024 10:29 Note Text: Pre- e instructions: Contacted patient and confirmed appt. for biopsy scheduled on 01/03/25, at [facility]. Diet: Do not eat solid food [...] signed. Arrival at 9:30am to desk QB-1 ([facility]) and check in for your procedure. Mend Worker/Transportation: How will you be arriving for your procedure? Private car. You will need a responsible adult to accompany you to and from the procedure. Your m48/m60 tank driver is required to stay with you until you are taken into the Procedure room. Recovery expectations: You can expect to be at the hospital for the majority of the day. Please do not schedule any other appointments the day of your procedure. If you have any questions please call [phone] [facility] CNOVon 12-26-2024 CNOV Office Visit (ORTHMN ) KEYA HARRIS ([id number]) 1955 F Date Time Provider Department 12/26/24 9:30 AM KANG, TED ORTHMN During your visit today, we recorded [...] sister Janet. She was told at the [place] there is potential that this is a [...] A1c): none, last A1c not available via [employer] Blood thinners (if yes, for what): none [...] being sent back to Ted Kang via [employer] Turntable Operator or Chart CC for [facility] Providers. ATTENDING PHYSICIAN NOTE I have personally [...] 1 unique (more content not included)... Normal [facility] CNPNon 12-26-2024 CNPN Telephone (ORTHMN) KEYA HARRIS ([id number]) 1955 F Date Time Provider Department 12/26/24 TED KANG During your visit today, we recorded the following information about you: Brenda Campbell RN 12/26/2024 10:28 AM Signed STAFF-INITIATED RADIOLOGY BIOPSY / ASPIRATION / DRAIN REQUEST FORM Date: December 26, 2024 Time: 10:26 AM PATIENT CONTACT INFORMATION: Best way to reach patient [phone] SCHEDULING: RONAN (Specific requests must be greater [...] biopsies do not need imaging.) IMAGING: OUTSIDE [facility] Films: Where is study now: EPIC (If the imaging was obtained outside the [facility] system, PLEASE upload for review prior to approval.) Note to all persons requesting biopsies: All biopsy requests will be scheduled as quickly as possible, based on the clinical urgency, availability of appointment times, the need to hold anti-thrombolytic therapy (aspirin and other blood thinners) and the patient?s schedule, including the need for an available m48/m60 tank driver. If a percutaneous biopsy or drainage [...] for this procedure: low risk. Reference from [facility]: https://[facility].policyiQuest Analytics. com/dotNet/documents/?d nksb=21434 STAFF SIGNATURE: Elder Mallory MD DATE: December 26, 2024 TIME: 3:43 PM Nam Olivia 12/27/2024 9:55 AM Signed Spoke with patient and scheduled BX 01/03/25 Allergies As of Date: 12/26/2024 (Not on File) Date Reviewed: 12/26/2024 Reviewed by: Becky Shanks MA - Fully Assessed Reason for Visit: Biopsy Request [1576] Primary Visit Diagnosis:Soft tissue mass [M79.89] Order(s):IMAGING GUIDED BIOPSY SOFT TISSUE MASS/MUSCLE [[id number]] Order #: [id number] Prescriptions as of 12/29/2024 - atorvastatin (LIPITOR) [...] for Encounter Date Provider Department Center 12/26/2024 [id number], TEDERMA [facility] Main - A Bld Encounter Status:Closed by BRENDA CAMPBELL on 12/29/[address] [facility] XR CHEST 2V FRONTAL/LATon XR CHEST 2V FRONTAL/LAT * * *Final Repor t* * * DATE OF EXAM: Dec 26 [...] degenerative changes. IMPRESSION: No acute radiographic abnormality. Administrative Appeals Tribunal Member: KATHRYN Transcribe Date/Time: Dec 26 2024 12:13P Dictated by : SRIKANTH CRUZ MD This examination was interpreted and the report reviewed and electronically signed by: POLO DEMARCO MD on Dec 26 2024 2:11PM EST [id number] Normal [facility] XR Chest PA and Lateralon IMPRESSION: No acute radiographic abnormality. Administrative Appeals Tribunal Member: KATHRYN Transcribe Date/Time: Dec 26 2024 12:13P Dictated [...] Thoracic degenerative changes. DIVISION OF RADIOLOGY Provider, [facility] - 12/26/2024 * * *Final Report* * [...] changes. IMPRESSION IMPRESSION: No acute radiographic abnormality. Administrative Appeals Tribunal Member: PSCB Transcribe Date/Time: Dec 26 2024 12:13P Dictated by : SRIKANTH CRUZ MD This examination was interpreted and the report reviewed and electronically signed by: POLO DEMARCO MD on Dec 26 2024 2:11PM EST [facility] Radiology Study observation (narrative) Bina Cristina XR Chest PA and LateralOrder ed By: [facility] Provider on 12-26-2024 [facility] URINE CULTURE,BACTERIALon URINE CULTURE,BACTERIAL PATIENT: KEYA HARRIS LOCATION: [facility] BILL#: [id number] : 55 AGE: SEX: F ORDERED BY: SONJA WINCHESTER SOURCE: URINE COLLECTED: 01/27/23 14:00 ANTIBIOTICS AT [place].: RECEIVED : 01/27/23 19:13 SITE: Clean Catch/Voided R E S U L T S URINE CULTURE,BACTERIAL FINAL 01/28/23 12:07 NO SIGNIFICANT GROWTH. Normal [facility] Comment on above: Performed By: #### U [facility] #### [facility] [address] [place] [address] Vital Signs Date Time Vital Sign Value Performing Clinician Facility 04-20-2025 23:32-0400 Body temperature 98.1 [degF] [facility] 04-20-2025 23:32-0400 Diastolic blood pressure 81 mm[Hg] [facility] 04-20-2025 23:32-0400 Heart rate 80 /min [facility] 04-20-2025 23:32-0400 Respiratory rate 14 /min [facility] 04-20-2025 23:32-0400 SaO2% (BldA) [Mass fraction] 98 % [facility] 04-20-2025 23:32-0400 Systolic blood pressure 145 mm[Hg] [facility] 04-20-2025 21:52-0400 Body height 154.94 cm [facility] 04-20-2025 21:52-0400 Body mass index (BMI) [Ratio] 36.4 kg/m2 [facility] 04-20-2025 21:52-0400 Body weight 87.58 kg [facility] 04-07-2025 08:46-0400 Body height 149.9 cm Sohail Luu MD Work Phone: [facility] 04-07-2025 08:46-0400 Body mass index (BMI) [Ratio] 38.98 kg/m2 Sohail Luu MD Work Phone: [facility] 04-07-2025 08:46-0400 Body weight 87.54 kg Sohail Luu MD Work Phone: [facility] 04-07-2025 08:46-0400 Diastolic blood pressure 79 mm[Hg] Sohail Luu MD Work Phone: [facility] 04-07-2025 08:46-0400 Heart rate 74 /min Sohail Luu MD Work Phone: [facility] 04-07-2025 08:46-0400 Systolic blood pressure 167 mm[Hg] Sohail Luu MD Work Phone: [facility] 03-27-2025 15:46-0400 Body mass index (BMI) [Ratio] 38.62 kg/m2 Lizzette Mcneill MD Work Phone: [facility] 03-27-2025 15:46-0400 Body temperature 98.4 [degF] Lizzette Mcneill MD Work Phone: [facility] 03-27-2025 15:46-0400 Body weight 87.7 kg Lizzette Mcneill MD Work Phone: [facility] 03-27-2025 15:46-0400 Diastolic blood pressure 80 mm[Hg] Lizzette Mcneill MD Work Phone: [facility] 03-27-2025 15:46-0400 Heart rate 86 /min Lizzette Mcneill MD Work Phone: [facility] 03-27-2025 15:46-0400 Respiratory rate 16 /min Lizzette Mcneill MD Work Phone: [facility] 03-27-2025 15:46-0400 SaO2% (BldA) [Mass fraction] 95 % Lizzette Mcneill MD Work Phone: [facility] 03-27-2025 15:46-0400 Systolic blood pressure 144 mm[Hg] Lizzette Mcneill MD Work Phone: [facility] 02-21-2025 11:27-0400 Body mass index (BMI) [Ratio] 39.55 kg/m2 Lizzette Mcneill MD Work Phone: [facility] 02-21-2025 11:27-0400 Body temperature 97 [degF] Lizzette Mcneill MD Work Phone: [facility] 02-21-2025 11:27-0400 Body weight 89.81 kg Lizzette Mcneill MD Work Phone: [facility] 02-21-2025 11:27-0400 Diastolic blood pressure 83 mm[Hg] Lizzette Mcneill MD Work Phone: [facility] 02-21-2025 11:27-0400 Heart rate 82 /min Lizzette Mcneill MD Work Phone: [facility] 02-21-2025 11:27-0400 Respiratory rate 17 /min Lizzette Mcneill MD Work Phone: [facility] 02-21-2025 11:27-0400 SaO2% (BldA) [Mass fraction] 94 % Lizzette Mcneill MD Work Phone: [facility] 02-21-2025 11:27-0400 Systolic blood pressure 136 mm[Hg] Lizzette Mcneill MD Work Phone: [facility] 12-26-2024 09:31-0400 Body height 154.9 cm Ted Kang MD Work Phone: [facility] 12-26-2024 09:31-0400 Body mass index (BMI) [Ratio] 37.03 kg/m2 Ted Kang MD Work Phone: [facility] 12-26-2024 09:31-0400 Body weight 88.91 kg Ted Kang MD Work Phone: [facility] 06-05-2023 09:51-0400 Body temperature 97.4 [degF] Dr. Khoi Nguyễn Work Phone: [facility] 06-05-2023 09:51-0400 Diastolic blood pressure 61 mm[Hg] Dr. Khoi Nguyễn Work Phone: [facility] 06-05-2023 09:51-0400 Heart rate 58 /min Dr. Khoi Nguyễn Work Phone: [facility] 06-05-2023 09:51-0400 Respiratory rate 16 /min Dr. Khoi Nguyễn Work Phone: [facility] 06-05-2023 09:51-0400 SaO2% (BldA) [Mass fraction] 97 % Dr. Khoi Nguyễn Work Phone: [facility] 06-05-2023 09:51-0400 Systolic blood pressure 108 mm[Hg] Dr. Khoi Nguyễn Work Phone: [facility] 06-05-2023 08:48-0400 Body height 154.[address] Khoi Nguyễn Work Phone: [facility] 06-05-2023 08:48-0400 Body mass index (BMI) [Ratio] 37.8 kg/m2 Dr. Khoi Nguyễn Work Phone: [facility] 06-05-2023 08:48-0400 Body weight 90.[address] Khoi Nguyễn Work Phone: [facility] 04-24-2023 12:47-0400 Body mass index (BMI) [Ratio] 37.8 kg/m2 Dr. Khoi Nguyễn Work Phone: [facility] 04-24-2023 12:47-0400 Body temperature 97.6 [degF] Dr. Khoi Nguyễn Work Phone: [facility] 04-24-2023 12:47-0400 Body weight 90.[address] Khoi Nguyễn Work Phone: [facility] 04-24-2023 12:47-0400 Diastolic blood pressure 89 mm[Hg] Dr. Khoi Nguyễn Work Phone: [facility] 04-24-2023 12:47-0400 Heart rate 71 /min Dr. Khoi Nugyễn Work Phone: [facility] 04-24-2023 12:47-0400 Respiratory rate 17 /min Dr. Khoi Nguyễn Work Phone: [facility] 04-24-2023 12:47-0400 SaO2% (BldA) [Mass fraction] 95 % Dr. Kohi Nguyễn Work Phone: [facility] 04-24-2023 12:47-0400 Systolic blood pressure 165 mm[Hg] Dr. Khoi Nguyễn Work Phone: [facility] Encounters Encounter Date Encounter Type Care Provider Facility Start: 04-20-2025 End: 04-20-2025 Emergency department patient visit [facility] Work Phone: Start: 04-14-2025 End: 04-14-[address] [facility] Start: 04-14-2025 End: 04-14-2025 Encounter for other preprocedural examination [facility] Start: 04-11-2025 Evaluation and management of inpatient LIZZETTE Stone [facility] Start: 04-07-2025 End: 04-07-2025 Office outpatient new 45 minutes Sohail Luu MD Work Phone: [facility] Comment on above: Abdominal wall mass (Primary Dx); Endometrial cancer (Multi) Start: 04-07-2025 End: 04-07-2025 ambulatory SOHAIL LUU [facility] Start: 04-03-2025 End: 04-03-[address] [facility] Start: 03-27-2025 End: 03-27-2025 Office outpatient visit 15 minutes Lizzette Mcneill MD Work Phone: [facility] Comment on above: Endometrial cancer ( Multi) (Primary Dx) Start: 03-27-2025 End: 03-27-2025 ambulatory LIZZETTE MCNEILL [facility] Start: 03-10-2025 End: 03-10-2025 Subsequent hospital visit by physician [facility] Comment on above: Endometrial cancer ( Multi) Arrived Start: 03-10-2025 End: 03-10-2025 ambulatory [facility] Start: 02-21-2025 End: 02-21-2025 ambulatory [facility] Start: 02-21-2025 End: 02-21-2025 Office outpatient visit 40 minutes Lizzette Mcneill MD Work Phone: [facility] Comment on above: Endometrial cancer ( Multi) (Primary Dx) Start: 01-03-2025 End: 01-03-2025 ambulatory DOCTOR JEFF Facility:[facility] Start: 12-26-2024 End: 12-26-2024 Office outpatient new 45 minutes Ted Kang MD Work Phone: Orthopaedics Comment on above: Abdominal mass, righ t lower quadrant (Primary Dx) Start: 12-26-2024 End: 12-26-2024 ambulatory TED KANG Facility:[facility] Start: 12-26-2024 End: 12-26-2024 Subsequent hospital visit by physician Xr Chest Main [facility]iology Comment on above: Right lower quadrant abdominal mass [R19.03] Start: 06-05-2023 Non-patient / Non-visit Dr. Marli Nguyễn Work Phone: [facility] Start: 06-05-2023 End: 06-05-2023 Admission to same day surgery center Dr. Khoi Nguyễn Work Phone: [facility] Work Phone: Start: 06-05-2023 End: 06-05-[address] Khoi Nguyễn Work Phone: [facility] Work Phone: Start: 04-24-2023 End: 04-24-[address] Khoi Nguyễn Work Phone: [facility] Work Phone: Start: 01-27-2023 ambulatory Sonja Winchester Facility: 9542 Procedures Date Procedure Procedure Detail Performing Clinician Start: 04-20-2025 Estimated creatinine clearance [facility] Start: 03-10-[address] atten uation skull base mid-thigh Lizzette Mcneill MD Work Phone: Start: 12-26-2024 Radiologic exam ches t 2 views Ted Kang MD Work Phone: Start: 06-05-2023 End: 06-05-[address] Khoi sawant Work Phone: Plan of Treatment Date Care Activity Detail Author Start: 04-08-2034 DTaP/Tdap/Td Vaccine s (3 - Td or Tdap) DTaP/Tdap/Td Vaccines (3 - Td or Tdap) [facility] Start: 04-08-2034 Urine microalbumin profile DTaP,Tdap,Td Vaccine (3 - Td or Tdap) [facility] Start: 06-05-2033 Screening for malign ant neoplasm of colon [facility] Start: 04-20-2025 [facility] Start: 04-18-2025 End: 04-18-2025 Admission to same day surgery center 04/18/2025 10:50 AM EDT - 04/18/2025 3:00 PM EDT Surgery [facility], [place] [address] [place] [address] [place] [address] [place] [address] Exploratory laparotomy, tumor debulking [53937 (CPT )] [facility] [place] Comment on above: Exploratory laparoto my, tumor debulking [23818 (CPT )] Start: 04-18-2025 End: 04-18-2025 Lapt stg/restg ovarian tubal/prim mal 2nd look LAPAROTOMY, EXPLORATORY, FOR STAGING Endometrial cancer (Multi) 04/18/2025 10:[address] [facility] [place] Start: 04-18-2025 Subsequent hospital visit by physician 04/18/2025 9:20 AM EDT Hospital Encounter [facility], [place] [address] [place] [address] [place] [address] [place] [address] [facility] Start: 04-14-2025 End: 04-14-2025 Admission to establishment 04/14/2025 10:30 AM EDT Pre-Admission Testing [facility] [address] [place] [id number] [facility] Start: 04-10-2025 Influenza vaccination Influenza Vacc ine (#1) [facility] Start: 03-27-2025 End: 03-27-2025 Patient encounter procedure 03/27/2025 3:40 PM EDT Office Visit [facility] [id number] [place] [address] [place] [phone] [place] [address] [place], [place] [id number] [facility] Start: 03-10-2025 End: 03-10-2025 Patient encounter procedure [facility] Start: 02-21-2025 End: 02-21-2026 PT Guidance for radiation treatment of Unspecified body region NM PET CT FDG oncology Imaging Routine Endometrial cancer (Multi) Expected: 02/21/2025, Expires: 02/21/2026 [facility] Service Area Work Phone: Comment on above: Expected: 02/21/2025 , Expires: 02/21/2026 Start: 02-06-2025 End: 02-06-2025 Patient encounter procedure 02/06/2025 2:30 PM EDT Office Visit Orthopaedics [address] [address] Ted Kang MD [address] [place], [place] [id number] Follow up Orthopaedics Comment on above: Follow up Start: 12-06-2024 Diabetes Screening Diabetes Screenin g [facility] Start: 08-10-2024 Advance Directive Discussion Advance Directive Discussion [facility] Start: 04-10-2024 COVID-19 Vaccine () COVID-19 Vaccine () [facility] Start: 04-10-2024 Covid-19 Vaccine () Covid-19 Vaccine () [facility] Start: 06-05-2023 [facility] Start: 12-01-2020 Screening for osteoporosis [facility] Start: 12-01-2000 Lipid panel Lipid Screening [facility] Start: 12-01-2000 Screening for malign ant neoplasm of colon [facility] Start: 1995 Screening for malign ant neoplasm of breast [facility] Start: 12-01-1973 Anxiety Screening Anxiety Screening [facility] Start: 12-01-1973 Depression Screening Depression Scre ening [facility] Start: 12-01-1973 Hepatitis C screening Hepatitis C Sc reening [facility] Start: 12-01-1956 MMR Vaccines (1 of 1 - Standard series) MMR Vaccines (1 of 1 - Standard series) [facility] Start: 1955 Lipid panel Lipid Panel [facility] Start: 1955 Screening for malign ant neoplasm of colon [facility] Start: 1955 Screening for osteoporosis Bone Density Scan [facility] Start: 1955 Yearly Adult Physical Yearly Adult P hysical [facility] Colonoscopy [facility] Lapt stg/restg ovari an tubal/prim mal 2nd look LAPAROTOMY, EXPLORATORY, FOR STAGING Endometrial cancer (Multi) Virtual [facility] Patient Education AFib Dc [facility] Work Phone: Patient referral [facility] Work Phone: Tissue Pathology bio psy report SURGICAL PATHOLOGY Lab Routine Abdominal mass, right lower quadrant Ordered: 12/26/2024 [facility] Work Phone: Comment on above: Ordered: 12/26/2024 Immunizations Immunization Date Immunization Notes Care Provider Opal moreno 10-10-2024 influenza virus vaccine, unspecified formulation Lizzette Mcneill MD Work Phone: [facility] Work Phone: Payers Date Payer Category Payer Private Health Insurance [facility] [employer] [id number] 2021 Unknown [id number] 1998 [facility] [id number] 1998 Unknown [id number] 18 1955 Unknown [id number]. 2.1069 1955 Unknown [id number] [id number]. 2.1242 1955 Unknown [id number] [id number]. 2.1242 1955 Unknown [id number]. 2.124 1955 Unknown [id number]. 2.1244 1955 Unknown [id number] [id number]. 2.1244 1955 Unknown [id number] [id number]. 2.1244 1955 Unknown [id number] [id number]. 2.1245 1955 Unknown [id number] 2.1245 Unknown [id number] Social History Date Type Detail Facility Start: 05-28-2023 Tobacco smoking status NHIS Unknown if ever smoked [facility] Start: 1955 Sex Assigned At Female [facility] Start: 12-26-2024 Tobacco smoking status NHIS Never smoked tobacco [facility] Start: 12-26-2024 Tobacco use and exposure Smokeless tobacco non-user [facility] Start: 12-26-2024 End: 04-07-2025 Alcoholic beverage intake Ex-drinker (finding) [facility] Start: 12-26-2024 End: 04-07-2025 History of Social function [facility] Start: 12-26-2024 End: 04-07-2025 Tobacco use panel [facility] Start: 07-05-2022 National Score (1-100), lower number is lower risk 60 [facility] Start: 12-26-2024 Alcohol Comment very rarely [facility] Start: 1955 Sex assigned at Not on file [facility] Start: 03-10-2025 Gender identity Identifies as female gender (finding) [facility] Work Phone: Start: 03-27-2025 End: 04-20-2025 Tobacco smoking status NHIS Ex-smoker [facility] History of tobacco use Current smoker [facility] Work Phone: History of tobacco use Cigarette Smoker [facility] Work Phone: Start: 03-27-2025 Tobacco use and exposure Former smokeless tobacco user [facility] Work Phone: NEGATED: Highlighted row [facility] Goals Date Patient Goal Desired Activity /State Mental Status Date Assessment Result Facility 04-20-2025 Cognitive function Voice/Name [facility] Work Phone: 06-05-2023 Cognitive function Appropriate;F carolynns Commands [facility] Work Phone: Clinical Notes 06-05-2023 to 04-20-2025 Note Date & Type Note Facility 04-20-2025 Discharge summary [facility] 04-20-2025 Discharge summary Note Date/Time April 20, 2025 11:37pm [facility] Medical Records Department [address] [place] [address] Emergency Department Summary 04/20/25 MR#: [id number] Acct: [id number] Name: KEYA HARRIS Rep #:[id number] : 1955 69 From: Alexander Wright DO PCP: [place] Hospital Status:REG ER Location: ED HPI History of Present Illness Chief Complaint: Palpitations Informant: patient and friend Narrative Narrative: Patient is a 69-year-old female with past medical history of hypothyroidism hyperlipidemia bipolar disorder and endometrial cancer for which she underwent surgery on Thursday, April 18. She states she stayed in the hospital Thursday and Thursday and was discharged home earlier today. She states roughly an hourago she began feeling her heart was racing. She states that there is no previous history of abnormal heart rhythm and she denies any excessive stimulantuse or illicit drug use. Secondary to the palpitations she presents for evaluation. [facility] Medical History Wears hearing aid Wears dentures Alcohol use High cholesterol Back pain Former smoker CPAP (continuous positive airway pressure) dependence History of pain when walking History of stress test Osteoarthritis Degenerative disc disease GERD (gastroesophageal reflux disease) Hypothyroidism Depression Bipolar 1 disorder Psoriasis Carpal tunnel syndrome History of hyperlipidemia History of sleep apnea History of endometrial cancer Home Medications ?Medication ?Instructions ?Recorded ?Last Taken ?Type atorvastatin 80 mg tablet 80 mg PO QHS 04/24/23 Unknow n History bupropion HCl (smoking deter) 150 150 mg PO BID Unknown History mg tablet,12 hr sustained-release(smoking deterrent) etodolac 300 mg capsule 300 mg PO BID 04/24/23 Unkno wn History lamotrigine 200 mg tablet 200 mg PO DAILY 04/24/23 Unk nown History levothyroxine 25 mcg tablet 25 mcg PO DAILY 04/24/23 U nknown History (Synthroid) metoprolol tartrate 25 mg tablet 25 mg PO BID 30 days #60 tabs 04/20/25 Unknown Rx Allergy/AdvReac Type Severity Reaction Status Date / Time imipramine Allergy Mild Rash Verified 04/20/25 21:53 Family History (Updated 04/24/23 @ 12:47 by Liudmila Figueroa) Father Heart disease Mother Heart disease Hypertension Hyperlipidemia Surgical History History of elbow surgery History of cataract extraction History of hysterectomy Social History (Updated 04/24/23 @ 12:47 by Liudmila Figueroa) Smoking Status: Former smoker alcohol intake: current substance use type: does not use ROS ROS ED Constitutional Constitutional ED: Denies chills or fever(s) Eyes Eyes: Denies change in vision ENT ENT ED: Denies sore throat Cardiovascular Cardiovascular: Reports palpitations and racing heartbeat; Denies chest pain Respiratory/Chest Respiratory/Chest: Denies cough or dyspnea Gastrointestinal Gastrointestinal: Reports abdominal pain; Denies diarrhea, nausea or vomiting Musculoskeletal Musculoskeletal: Denies back pain or myalgias Integumentary Denies rash Neurologic Neurologic: Denies headache(s) Hematologic/Lymphatic Hematologic/Lymphatic: Denies easy bleeding or easy bruising EXAM Physical Exam Const Vital Signs: 04/20/25 21:52 04/20/25 21:54 04/20/25 22:45 Temperature 97.7 F L 97.5 F L Temperature Source Oral Oral Pulse Rate 148 H 127 H 79 Respiratory Rate 16 19 H 16 Blood Pressure 162/116 H 141/101 H 151/78 H Blood Pressure Mean 131 114 102 Pulse Ox 99 98 97 Oxygen Delivery Method Room Air Room Air Room Air 04/20/25 22:54 04/20/25 23:00 Temperature 97.6 F L 97.6 F L Temperature Source Oral Oral Pulse Rate 79 78 Respiratory Rate 18 12 Blood Pressure 149/88 H 149/88 H Blood Pressure Mean 108 108 Pulse Ox 98 99 Oxygen Delivery Method Room Air Room Air Positive well nourished, well developed and obese General Appearance ED: well developed Nutritional Appearance: obese HEENT HEENT Narrative: Normocephalic atraumatic Eyes PERRL and EOMs intact bilaterally General Eye ED: Negative for scleral icterus Neck supple and no JVD Resp normal respiratory effort and clear to auscultation bilaterally Resp Narrative: Breath sounds are diminished throughout but overall clear to auscultation without signs of respiratory distress Cardio Rate: other Other Details: Irregularly irregular rhythm with tachycardic rate consistent with A-fib with RVR No pleuritic chest pain reported GI non-distended GI Narrative: Abdomen is soft and nondistended with hypoactive bowel sounds. Patient has postoperative incision along the right lower abdominal wall with a STEPHANIE drain in place draining serosanguineous fluid. The wound appears clean dry and intact without secondary findings of infection. No rigidity or peritoneal signs No pulsatile mass or fluid wave Auscultation: hypoactive bowel sounds Palpation: soft Extremity normal to inspection Extremity Narrative: No asymmetric edema no pitting edema negative Homans' sign bilaterally Neuro oriented x3, CN's II-XII intact bilaterally and no sensory deficits noted Sensorium / Orientation: alert Motor Exam: strength 5/5 throughout Psych Mood & Affect: anxious Skin Skin Narrative: Postoperative changes to the abdominal wall as documented above MDM MDM MDM Narrative Medical decision making narrative: Patient arrived to the ER hypertensive and tachycardic. She reported palpitations and with a recent history of surgery there is concern for abnormal heart rhythms such as atrial fibrillation or atrial flutter. Patient could alsohave acute blood loss anemia thyroid dysfunction or electrolyte abnormality. She denied any type of chest pain upon arrival or pleuritic chest pain and she is only felt the palpitations for roughly 1 hour and therefore my concern for underlying PE is low and I do not feel the need for a D-dimer or CTA. The patient's blood work revealed anemia but it is well above the value of 7 and notclinically significant. Otherwise there is no signs of acute kidney injury or electrolyte abnormality. Thyroid is within normal function as well. The patient was given IV fluid as well as 2 doses of 5 mg IV Lopressor. After the second dose the patient converted to normal sinus rhythm which was confirmed by EKG. I then discussed the case with the machine operator packaging on-call Dr. Aguayo. He states with a Chadvas score of 2 she is overall low risk and simply recommends afull-strength aspirin daily and not true anticoagulation with Eliquis or Xarelto. The patient was placed on 25 mg metoprolol tartrate twice a day to help with blood pressure and rate control as well. Dr. Aguayo did recommend a D-dimer because of her recent surgical procedure. I did discuss this with the patient. She states that she feels perfectly normal at this time and as she is outside of the abnormal heart rhythm she does not want to stay in the hospital any longer. She states that she does not have chest pain or shortness of breathand she has low concern that she has a blood clot and therefore does not want the test performed and would prefer to be discharged home as she is now in normal sinus rhythm with stable vitals. Therefore I will discharge the patient as requested and she can follow-up with cardiology to discuss any further testing or treatment options regarding her paroxysmal A-fib. At this time however she is in normal sinus rhythm with stable vitals no respiratory distress or pleuritic chest pain. She will continue full-strength aspirin as well as metoprolol tartrate twice a day along with her other medications. She understands to return if symptoms worsen or she has any further concerns. History & Record Review Discussion w/independent historian: Patient and Friend Lab Data Attestation: I reviewed the patient's lab results. Labs: Laboratory Results - last 24 hr 04/20/25 22:19 WBC 9.1 RBC 3.67 L Hgb 11.1 L Hct 35.2 L MCV 95.9 MCH 30.2 MCHC 31.5 L RDW Std Deviation 49.2 H RDW Coeff of Dayron 13.8 Plt Count 285 MPV 10.1 Immature Gran % (Auto) 0.700 Neut % (Auto) 66.5 Lymph % (Auto) 17.6 L [place] % (Auto) 11.5 H Eos % (Auto) 3.2 Baso % (Auto) 0.5 Absolute Neuts (auto) 6.1 Absolute Lymphs (auto) 1.60 Nucleated RBC % 0 PT 13.5 INR 1.0 APTT 26.1 Sodium 141 Potassium 3.8 Chloride 107 Carbon Dioxide 20.2 L Anion Gap 14 BUN 14 Creatinine 0.71 Estim Creat Clear Calc 66.76 Est GFR (MDRD) Non-Af 92 BUN/Creatinine Ratio 20.1 H Glucose 162 H Calcium 9.2 Magnesium 2.0 TSH 1.370 Management Discussion w/another healthcare provider: Pyrotechnician Discharge Plan Triage Chief Complaint: Palpitations ED Provider: Alexander Wright Dx/Rx/DC Orders Clinical Impression: Paroxysmal atrial fibrillation with rapid ventricular response, Bipolar 1 disorder, Hypothyroidism, Hyperlipidemia Instructions: AFib Dc Prescriptions: New metoprolol tartrate 25 mg tablet 25 mg PO BID 30 Days Qty: 60 0RF No Action levothyroxine [Synthroid] 25 mcg tablet 25 mcg PO DAILY atorvastatin 80 mg tablet 80 mg PO QHS etodolac 300 mg capsule 300 mg PO BID bupropion HCl (smoking deter) 150 mg tablet extended release 12 hr 150 mg PO BID lamotrigine 200 mg tablet 200 mg PO DAILY Primary Care Provider: [facility] Referrals: Marco Antonio Aguayo MD [Med Staff - Active Staff] - (Paroxysmal atrial fibrillation) [facility] [Primary Care Provider] - Activity Restrictions/Additional Instructions: Please continue to take the metoprolol twice a day for blood pressure and heart rate control. Take a full-strength/325 mg aspirin once daily as well to help with anticoagulation. Follow-up with cardiology for further treatment options of your recent bout of A-fib and return to the ER should you have any further concerns Print Language: Estonian Disposition Disposition: Home, Self Care What to do if you have Problems For any increased pain, shortness of breath, bleeding, nausea or vomiting, chestpain, or any unexpected problems, contact your Primary Care Provider. Call [facility] ([phone]) or report to the closest Emergency Room. Call 911 if necessary. 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 Exam conducted with a division head present. Constitutional: General: She is not in [...] consent for surgery and participation in the [facility] at this clinic visit. Portions of [...] in a staged fashion. Sohail Luu MD stitchdown thread laster Division of General Surgery Department of Surgery documented in this [facility] Work Phone: 1(129) 150-790008-18-2025 History of Present illness Narrative* Lizzette Mcneill MD - 03/27/2025 3:40 PM EDT Patient ID: Keya Harris is a 69 y.o. female. Referring Physician: [place] [address] [address] Primary Care Provider: Rian Stephen, ELECTRIC METER INSPECTOR-SOCK IRONER Subjective No new symptoms Occasional pain PET/CT [...] Patient declined RT referral 11/2024 seen at [facility] with abdominal pain, abdominal wall mass. CT [...] of recurrent endometrial cancer. Discussed role for surgicalresection given isolated disease. Will coordinate surgical resection with hernia specialist. Follow-up for surgery. Risks of surgery including bleeding infection and damage nearby structures were reviewed She will need preadmission testing [facility] Work Phone: 1(412) 265-413708-18-2025 Miscellaneous Notes* Addendum Note - Lizzette Mcneill MD - 03/27/2025 3:40 PM EDTAddended by: LIZZETTE MCNEILL on: 03/27/2025 04:28 PM Modules accepted: Orders [facility] Work Phone: 1(508) 967-339108-18-2025 Note* Addendum Note - Lizzette Mcneill MD - 03/27/2025 3:40 PM EDTAddended by: LIZZETTE MCNEILL on: 03/27/2025 04:28 PM Modules accepted: Orders [facility] Work Phone: 1(987) 395-968507-15-2025 History of Present illness Narrative* Lizzette Mcneill MD - 02/21/2025 11:00 AM EDT Patient ID: Keya Harris is a 69 y.o. female. Referring Physician: No referring provider defined for this encounter. Primary Care Provider: Rian Stephen APRN-DINA Referred by [facility] Subjective 66 year old with recurrent endometrial cancer Cancer history December 05, 2021 1. Robotic assisted total laparocopic hysterectomy 2. Bilateral salpingoophorectomy 3. Bilateral sentinel pelvic lymphadenectomy Tumor Board: Refer to radiation oncology. Patient declined RT referral 11/2024 seen at [facility] with abdominal pain, abdominal wall mass. CT with no other findings US guided biopsy of mass - recurrent endometrial cancer HPI Interval History: States she went to the [place] and then the clinic for an abdominal [...] and/or surgery. [facility]. Discussed recommendations for PET scan to assess [...] of Lizzette Mcneill MD. documented in this [facility] Work Phone: 1(383) 974-236805-19-2025 Instructions* Patient Instructions* Brenda aCmpbell RN - 12/26/2024 10:17 AM EDT Interventional radiology will reach out to you to schedule a biopsy This can take between 7-10 days Pathology results can take 1-3 weeks *sometimes longer* Please schedule follow up appointment at motel front desk attendant or by calling [phone] Kang in 3-4 weeks If scheduling a virtual appointment: appointment must be a video visit (zoom and electronic device required) in the LAST slot of the day (3:30 pm). We may be running late prior to your virtual visit because we must see all patients in clinic first. Please log in on time, but please be patient if weare not available immediately. If you prefer a sooner appointment, you may need to come in person. documented [facility] History of Present illness Narrative* Ted Kang MD - 12/26/2024 9:30 AM EDT Orthopaedic Oncology New Patient Evaluation Chief Complaint: [...] it is now about the size of anorange. She says the pain is burning or [...] A1c): none, last A1c not available via epic Blood thinners (if yes, for what): none [...] being sent back to Ted Kang via [employer] Communication Manageror Chart CC for [facility] Providers. ATTENDING PHYSICIAN NOTE I have personally [...] Will obtain image guided bx and follow upafter results. Will discuss with surgical oncology team after bx. Ted Kang MD Associate Staff, Orthopaedic Surgery Division of Musculoskeletal Oncology Orthopaedic Medical Decision Making (MDM) Complexity of problems: Undiagnosed joint, tendon, ligament or muscle condition, Complexity of data: Independent interpretation of imaging, 2 unique test results reviewed, 1 uniquetests ordered, Level of MDM: Moderate (4) documented in this encounterOhiohealth [facility]05-19-2025 NoteHNO ID: [id number] Author: TED KANG MD Service: ? 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 ATTENDING PHYSICIAN NOTE I have personally [...] unique tests ordered, Level of MDM: Moderate (4)[facility]05-19-2025 History of Present illness Narrative* Wanda Pryor RT(R) - 12/26/2024 8:30 AM EDT Radiology Service Progress Note PATIENT NAME: Keya Harris DATE OF SERVICE: December 26, 2024 TIME: 8:20 AM PATIENT IDENTITY VERIFICATION COMPLETED USING TWO (2) IDENTIFIERS: Name and Date of confirmedby patient verbally. FALL SCREENING: Has the patient had 2 falls in the last year or 1 fall with injury or currently using an Ambulatory Assistive Device (Walker, Cane, Wheelchair, Crutches, etc.)? No PATIENT GENDER DATA: Assigned female at . status: : No status:NO. PATIENT RELEVANT IMPLANT DATA REVIEWED: Not Applicable PATIENT PRESENTS WITH AN IMPLANTABLE OR ATTACHED DATA SCIENTIST: No RADIOLOGY DEPARTMENT: General X-ray: Exam(s) Completed: Chest X-Ray PERIPHERAL IV DATA: Not applicable SIGNED BY: EMILY Humphries) December 26, 2024 8:20 AM documented in this encounterOhiohealth [facility]05-19-2025 NoteHNO ID: [id number] Author: PRYOR, WANDA, RT(R) Service: Radiology Author Type: Technologist Type: [...] PATIENT PRESENTS WITH AN IMPLANTABLE OR ATTACHED DATA SCIENTIST: No RADIOLOGY DEPARTMENT: General X-ray: Exam(s) Completed: Chest X-Ray PERIPHERAL IV DATA: Not applicable SIGNED BY: RT Kristel(R) December 26, 2024 8:20 [facility]10-27-2023 [facility] Onset Date Resolution Status Screen for colon cancer [facility] Work Phone: Evaluation note* Diagnosis Abdominal mass, right lower quadrant- Primary Abdominal or pelvic swelling, mass, or lump, right lower quadrant documented in this encounter [facility]* Diagnosis Right lower quadrant abdominal mass Abdominal or pelvic swelling, mass, or lump, right lower quadrant [facility]* Diagnosis Endometrial cancer (Multi)- Primary Malignant neoplasm of corpus uteri, except isthmus documented in this encounter [facility] Work Phone: Evaluation note* Diagnosis Endometrial cancer (Multi) Malignant neoplasm of corpus uteri, except isthmus documented in this encounter [facility] Work Phone: Evaluation note* Diagnosis Endometrial cancer (Multi)- Primary Malignant neoplasm of corpus uteri, except isthmus documented in this encounter [facility] Work Phone: Evaluation note* Diagnosis Endometrial cancer (Multi)- Primary Malignant neoplasm of corpus uteri, except isthmus Abdominal wall mass- Primary Abdominal or pelvic swelling, mass or lump, unspecified site Endometrial cancer (Multi) Malignant neoplasm of corpus uteri, except isthmus Endometrial cancer (Multi) Malignant neoplasm of corpus uteri, except isthmus documented in this encounter [facility] Work Phone: Evaluation noteNo assessment information available [facility] Work Phone: History and physical note Author Khoi Nguyễn [facility] June 05, 2023 9:13am Note Date/Time June 05, 2023 9 :13am [facility] Medical Records Department [address] [place] [address] History & Physical Exam 06/05/23911 MR#: [id number] Acct: [id number] Name: KEYA HARRIS Rep #:[id number] : [id number] From: Khoi rapp MD PCP: [facility] Status:[facility] Location: [place] [address] History and Physical Date of Admission: 06/05/23 Intake Vital Signs 04/24/2312:47 Height 5 ft 1 in Weight: 200 lb BMI 37.8 BP 165/89 H Blood Pressure Location Rt brachial Position Sitting Respiration 17 Pulse 71 Pulse Source NIBP Temp 97.6 F L Temp Source Temporal Pulse Oximetry (%) 95 Oxygen Delivery Method room air Intake Visit Reasons: Colonoscopy Chief Complaint: screening c-scope Youth Support Worker Required: No Is patient in pain?: No [...] have one. She received prep from the MA. I explained endoscopy in detail to the patient. I explained the risks including but not limited to stroke or heart attack with anesthesia, perforation of the GI tract, bleeding, infection. I explained that any of these could necessitate further emergency surgery. The patient understands and all questions were answered sufficiently. The patient wishes to proceed with procedure. Khoi Nguyễn MD Pager: [facility] [address] [place] [address], [address] [place] [address] Office: I have examined the patient and the H&P has been reviewed. There are no clinicalchanges since date of exam. 06/05/23912 <Electronically signed by Khoi Nguyễn MD> Cosigner Signature (if applicable): CC: Dr. Khoi Nguyễn MD; [facility]~ Signed [facility] Work Phone: Hospital Discharge instructionsAdditional Instructions Please continue to take the metoprolol twice a day for blood pressure and heart rate control. Take a full-strength/325 mg aspirin once daily as well to help with anticoagulation. Follow-up with cardiology for further treatment options of your recent bout of A-fib and return to the ER should you have any further [facility] Work Phone: Reason for visit Narrative* Imaging (Routine) - Authorized Specialty Diagnoses / Procedures Referred By Laron chavira Referred To Contact Radiology Diagnoses Endometrial cancer (Multi) Procedures NM PET [place] [address] [place] [address] Phone: tel: fax: Referral ID Status Reason Start Date Expiration Date Visits Requested Visits Authorized [id number] Authorized Perform Procedure 02/21/2025 02/21/2026 3 3 [facility] Work Phone: Reason for visit Narrative* Imaging (Routine) - Authorized Specialty Diagnoses / Procedures Referred By Laron chavira Referred To Contact Radiology Diagnoses Endometrial cancer (Multi) Procedures NM PET [place] [address] [place] [address] Phone: tel: fax: Referral ID Status Reason Start Date Expiration Date Visits Requested Visits Authorized [id number] Authorized Perform Procedure 02/21/2025 02/21/2026 3 3 [facility] Work Phone: Reason for visit Narrative* Consultation (Routine) - Pending Review Specialty Diagnoses / Procedures Referred By Laron chavira Referred To Contact General Surgery Diagnoses Endometrial cancer (Multi) [place] [address] [place] [address] Phone: tel: fax: [place] [address] [facility] [place] [address] Phone: tel: fax: Referral ID Status Reason Start Date Expiration Date Visits Requested Visits Authorized [id number] Pending Review Specialty Services Required 03/27/2025 03/27/2026 1 1 [facility] Work Phone: Summary Purpose Family History No Family History Records Found Relationship Condition Age at Onset Recorded Date/T homa father Cardiac disease Unknown mother Cardiac disease Unknown Hypertension Unknown Hyperlipidemia Unknown Advance Directives No Advanced Directives Records Found Advance Directive Response Recorded Date/ Time Name of Medical Power of Retail Marketing Coordinator FRIEND May 28, 2023 12:03pm Living Will Yes May 28 12:03pm Power of Retail Marketing Coordinator Yes May 28, 2023 12:03pm Advance Directive Response Recorded Date/ Time Do you have a Healthcare Power of Retail Marketing Coordinator? Yes April 20, 2025 10:11pm Name of Medical Power of Retail Marketing Coordinator rigo alan April 20, 2025 10:11pm Chief Complaint and Reason for Visit Chief Complaint Colonoscopy Reason for Visit Screen for colon can cer Chief Complaint Admit Date HEART RACING April 20, 2025 9:52pm Additional Source Comments INFORMATION SOURCE (unrecogn ized section and content) DATE CREATED AUTHOR [place]2023 [facility] [place] CREATED AUTHOR AUTHOR'S ORGANIZ ATION 01/17/2025 [facility] DATE CREATED AUTHOR AUTHOR'S ORGANIZ ATION 03/16/2025 [facility] DATE CREATED AUTHOR AUTHOR'S ORGANIZ ATION 04/09/2025 [facility] DATE CREATED AUTHOR AUTHOR'S ORGANIZ ATION 04/17/2025 [facility] DATE CREATED AUTHOR AUTHOR'S ORGANIZ ATION 04/22/2025 [facility] Care Teams (unrecognized sec tion and content) Team Status: Active Member Role Status Dates Dr. Buddy Keene MD Family Provider Active [facility] Primary Care Provider Active Team Status: Inactive Member Role Status Dates Dr. Khoi Nguyễn MD Attending Provider Active Team Status: Active Member Role Status Dates Dr. Khoi Nguyễn MD Attending Provider, Other Provider Active [facility] Primary Care Provider, Referring Provider Active Team Status: Inactive Member Role Status Dates Dr. Khoi Nguyễn MD Attending Provider Active [facility] Primary Care Provider, Referring Provider Active Director Educational Radio Relationship Specialty Start Date End Date Brenda Wayne [address] [place] [address] Referring General Surgery 12/16/24 Brenda Wayne [address] [place] [address] Referring General Surgery 12/22/24 Director Educational Radio Relationship Specialty Start Date End Date Brenda Wayne [address] [place] [address] Referring General Surgery 12/16/24 Brenda Wayne [address] [place] [address] Referring General Surgery 12/22/24 Director Educational Radio Relationship Specialty Start Date End Date Rian Stephen, ELECTRIC METER INSPECTOR-[employer] [address] [place] [address] PCP - General 11/19/14 [place] [address] [place] [address] Rv Repairer Obstetrics and Gynecology 02/21/25 Director Educational Radio Relationship Specialty Start Date End Date Rian Stephen APRN-[employer] [address] [place] [address] PCP - General 11/19/14 [place] [address] [place] [address] Rv Repairer Obstetrics and Gynecology 02/21/25 Director Educational Radio Relationship Specialty Start Date End Date Rian Stephen APRN-[employer] [address] [place] [address] PCP - General 11/19/14 [place] [address] [place] [address] Rv Repairer Obstetrics and Gynecology 02/21/25 Director Educational Radio Relationship Specialty Start Date End Date Rian Stephen APRN-[employer] [address] [place] [address] PCP - General 11/19/14 [place] [address] [place] [address] Rv Repairer Obstetrics and Gynecology 02/21/25 Team Status: Active Member Role/Relationship Status Dates [facility] Primary Care Provider Active Team Status: Inactive Member Role/Relationship Status Dates [facility] Primary Care Provider Active Start: April 20, 2025 End: April 20, 2025 Dr. Alexander Wright , DO Emergency Provider Active Start: April 20, 2025 End: April 20, 2025 Source Comments (unrecognize d section and content) In the event this informatio n is protected by the Federal Confidentiality of Alcohol and Drug Abuse Patient Records regulations: The Federal rules restrict any use of the information to criminally investigate or prosecute any alcohol or drug abuse patient.[facility] CenterIn the event this information is protected by the Federal Confidentiality of Alcohol and Drug Abuse Patient Records regulations: The Federal rules restrict any use of the information to criminally investigate or prosecute any alcohol or drug abuse patient.[facility] Reason for Visit (unrecogniz ed section and content) Reason Comments New Tumor/Mass Swelling Specialty Diagnoses / Procedures Referred By Contac t Referred To Contact Orthopedics / ORTHOPAEDIC SURGERY Diagnoses Right lower quadrant abdominal swelling, mass and lump RLQ mass Procedures OFFICE/OUTPATIENT NEW HIGH MDM 60 MINUTES WIN NEW TUMOR Ted Kang MD [address] [place] [address] Phone: tel: fax: Ted Kang MD [address] [place] [address] Phone: tel: fax: Referral ID Status Reason Start Date Expiration Date V isits Requested Visits Authorized [id number] Closed Patient Cleared - Admin/Chairm an/Director advise to proceed or did not respond 12/13/2024 06/11/2025 1 1 Reason Comments Follow-up Goals (unrecognized section and content) Goals may be documented in a n alternate section FOR RECORDS PERTAINING TO PATIENTS WHO ARE [...] BE BASED ON THE PRIMARY CLINICAL RECORDS. [facility] [employer] [facility]. provides no warranty or guarantee of the accuracy or completeness of information in this document.
--- NOTE | 2025-04-23 00:16 | CT_ITS ---
PROCEDURE: CTA CHEST W/WO CONTRAST 04/23/2025 REASON FOR EXAM: RULE OUT PE, RECENT SURGERY, NEW A FIB TECHNIQUE: Procedure Code: [id number] Modality: CT Procedure: CTA CHEST W/WO CONTRAST Multiplanar Sagittal and Coronal images were obtained. CONTRAST: Isovue 370 VOLUME: 100 mL One or more dose reduction techniques were used (e.g., Automated exposure control, adjustment of the mA and/or kV according to patient size, use of iterative reconstruction technique). RADIATION DOSE SUMMARY: CTDlvol: 14.11 mGy DLP: 456 mGycm COMPARISON: Chest radiograph on 04/22/2025. FINDINGS: Distended, thickened gallbladder with an impacted gallstone at its neck. This can be further evaluated by ultrasound exam if clinically warranted. Mild cardiomegaly. Normal enhancement of the main pulmonary artery and right and left pulmonary arteries. Normal enhancement of the bilateral peripheral pulmonary arteries. There is no demonstrated pulmonary embolism. Normal thoracic aorta and visualized great vessels. There is no demonstrated aortic dissection. Normal pericardium. Normal mediastinum. Normal hilar regions. Scattered pulmonary blebs. Normal visualized trachea and bronchi. Normal pleura. Diffuse spondylosis. CT/CTA Chest W/WO Contrast IMPRESSION: Mild cardiomegaly. No demonstrated pulmonary embolism or arterial dissection. Distended, thickened gallbladder with an impacted gallstone at its neck. This c an be further evaluated by ultrasound exam if clinically warranted. Reading Location: [place] [address]
[2025-04-23 00:17] LABS: Differential Indicated SCAN CRITERIA MET
[2025-04-23 01:00] VITALS: BP 127/68; PULSE 82; RESP 16; O2SAT 97
[2025-04-23 01:00] LABS: Platelet Count 261 K/mm3 (150-450)
[2025-04-23 02:30] VITALS: BP 141/67; PULSE 83; RESP 16; TEMP 36.7; O2SAT 95
== END 2025-04-23 02:35 | disposition home or self-care (01) ==
PROVIDERS: Emergency Provider Student in an Organized Health Care Education/Training Program; PCP Nurse Practitioner Family; Visit Provider Student in an Organized Health Care Education/Training Program
DX: I48.0 Paroxysmal atrial fibrillation (principal); F31.9 Bipolar disorder, unspecified; C54.1 Malignant neoplasm of endometrium; E78.00 Pure hypercholesterolemia, unspecified; Z87.891 Personal history of nicotine dependence; K80.20 Calculus of gallbladder without cholecystitis without obstruction; E03.9 Hypothyroidism, unspecified; K21.9 Gastro-esophageal reflux disease without esophagitis; Z79.890 Hormone replacement therapy; Z79.899 Other long term (current) drug therapy
CPT/HCPCS: 71046; 71275; 80048; 83735; 84443; 85025; 85379; 93005; 96360; 96361; 99285; Q9967; A4216